=== PATIENT | male | born 1955 | race Caucasian/White ===

== ENCOUNTER 2019-11-09 18:12 | Emergency (ER) | payer MEDICARE, SELFPAY ==
[2019-11-09 18:22] VITALS: BP 146/91; PULSE 96; RESP 15; TEMP 36.7; O2SAT 98; BMI 25.1
[2019-11-09 18:24] VITALS: BP 146/91; PULSE 96; RESP 15; TEMP 36.7; O2SAT 98; BMI 25.1
--- NOTE | 2019-11-09 18:26 | HMH.EDGENADL ---
ED Disposition Clinical Impression: Laceration of left thumb Qualifiers: Encounter type: initial encounter Damage to nail status: without damage Foreign body presence: without foreign body Qualified Code(s): S61.012A - Laceration without foreign body of left thumb without damage to nail, initial encounter Disposition: Home, Self-Care Condition on Discharge: Good Instructions: DI for Laceration Repair Additional Instructions: Keflex as prescribed, begin tomorrow. Tylenol 3 as needed for pain. Additional instructions for HAND LACERATION: Clean the wound daily with soap and water. Avoid submerging the wound. No swimming.thin film of antibiotic ointment such as Neosporin, Polysporin, or triple antibiotic once a day. See your primary care physician or return to the [facility] in 10 days for suture removal. The [facility] is open1 PM to 9 PM 7 days a week. Return if any signs of infection including increasing pain, pus drainage, swelling, redness, red streaks, or fever. Additional instructions for CONTROLLED SUBSTANCES: You have been prescribed a medication that is a controlled substance. Controlled substances include pain medications known as opiates and sedative nerve medications known as benzodiazepines. Tramadol, fioricet, and gabapentin are also controlled substances. Some common opiates include: Codeine (such as Tylenol #3) Hydrocodone (Vicodin, Lortab, Lorcet, Venango) Oxycodone (Percocet, Percodan, Oxycodone, Oxy IR) Some common benzodiazepines include: Diazepam (Valium) Lorazepam (Ativan) Alprazolam (Xanax) Clonazepam (Klonopin) Oxazepam (Serax) All of these controlled substances are highly addictive and frequently abused. Misuse can and frequently does lead to addiction as well as overdose and . Medication should be stored in a locked cabinet or other secure storage unit. Do not store the medication in a motor vehicle. Short term supplies, 3 days or less, are prescribed because of the highly addictive nature of the medication. Any of the controlled substance medication NOT taken should be disposed of properly and NOT SAVED. The recommended method of disposing of unused medications is: Place the medicines in a sealable plastic bag. If the medicine is a solid, crush it or add water to dissolve it. Add something undesirable (cat litter, coffee grounds, etc.) Dispose of sealed bag in household trash Do not flush or pour unused medicines down a sink or drain. Controlled substances should not be shared, given away or sold. Because of the addictive nature and frequent abuse, these medications are sometimes stolen. These medications should be kept in a safe place where they cannot be stolen. Do not keep them in your car or purse. Lost or stolen prescriptions for controlled substances WILL NOT BE REFILLED in this emergency department, regardless of whether a police report was filed. Prescriptions: cephALEXin [Keflex 500mg Cap] 500 mg PO QID #20 cap Transmission Status: Pending to [facility] Referrals: Duncan Dubon [Primary Care Provider] - - Critical Care Critical Care Time: No Attestation: On , the high probability of a clinically significant, sudden or life threatening deterioration of the following system(s) required my full and direct attention, intervention and personal management. The time I documented below is in addition to time spent performing reported procedures but includes the following listed in this critical care notation. Medical Decision Making - Allan Inquiry Pt receiving controlled substance: Yes Allan was queried for this patient: Yes Reference #:: [id number] Risks and benefits of using a controlled substance: were discussed with pt by me Comment: 0 rxs. Vital Signs: 11/09/19 18:22 11/09/19 18:24 Temperature 98.1 F 98.1 F Temperature Source Oral Oral Pulse Rate [Right Radial] 96 H 96 H Respiratory Rate 15 15 Blood Pressur
--- NOTE | 2019-11-09 18:27 | XR_ITS ---
PROCEDURE: XR FINGER LT MIN 2V CLINICAL INDICATION: cut with saw Posttraumatic pain COMPARISON: No exams were available for comparison FINDINGS: No fracture or dislocation. No lytic or blastic change. There is normal mineralization. The joint spaces are well-preserved. No significant degenerative/arthritic changes. No erosive changes evident. Other findings:Soft tissue laceration is present along the plantar surface of the distal aspect of the thumb. No fracture or radiopaque foreign body IMPRESSION: Soft tissue laceration otherwise negative Dictated by: Juanjo George MD 11/09/2019 20:11 Juanjo George MD in [place] 11/09/2019 20:11
--- NOTE | 2019-11-09 18:36 | PC.NURSE ---
PT GONE TO XRAY
[2019-11-09 19:00] VITALS: BP 140/70; PULSE 80; RESP 18; O2SAT 98
--- NOTE | 2019-11-09 19:07 | PC.NURSE ---
received report from day nurse
[2019-11-09 19:20] VITALS: BP 141/73; PULSE 77; RESP 15; TEMP 36.5; O2SAT 98
== END 2019-11-09 19:28 | disposition home or self-care (01) ==
PROVIDERS: Emergency Provider Emergency Medicine; PCP Family Medicine
DX: S61.012A Laceration without foreign body of left thumb without damage to nail, initial encounter (principal); W31.2XXA Contact with powered woodworking and forming machines, initial encounter; Y92.018 Other place in single-family (private) house as the place of occurrence of the external cause; Z23 Encounter for immunization; K21.9 Gastro-esophageal reflux disease without esophagitis; I25.10 Atherosclerotic heart disease of native coronary artery without angina pectoris; I10 Essential (primary) hypertension; E78.5 Hyperlipidemia, unspecified; E03.9 Hypothyroidism, unspecified; Z95.5 Presence of coronary angioplasty implant and graft
CPT/HCPCS: 12002; 73140; 90471; 90714; 96372; 99283

== ENCOUNTER → 2019-11-17 14:59 | Outpatient (CLI) | payer MEDICARE, SELFPAY ==
--- NOTE | 2019-11-17 15:04 | XR_ITS ---
PROCEDURE: XR CHEST 2V CLINICAL HISTORY: CHEST TIGHTNESS,WHEEZING COMPARISON: CR CXR CHEST(2 VIEWS-NOT PORTABLE) from 11/21/2013 FINDINGS: The cardiomediastinal silhouette and pulmonary vascularity are within normal limits. No lobar consolidation or collapse. There is some mild coarsening of the bronchovascular markings. Coronary artery stent is present. No acute bony abnormalities. IMPRESSION: Chronic changes, no acute finding Dictated by: Juanjo George MD 11/17/2019 15:24 Juanjo George MD in [place] 11/17/2019 15:24
== END ==
PROVIDERS: PCP Family Medicine; Visit Provider Family Medicine
DX: R06.89 Other abnormalities of breathing (principal); R06.2 Wheezing
CPT/HCPCS: 71046

== ENCOUNTER 2019-11-20 18:37 | Emergency (ER) | payer MEDICARE, SELFPAY ==
[2019-11-20 18:59] VITALS: BP 142/77; PULSE 74; RESP 17; TEMP 36.8; O2SAT 98; BMI 25.1
[2019-11-20 19:00] VITALS: BP 142/77; PULSE 74; RESP 17; TEMP 36.8; O2SAT 98
== END 2019-11-20 19:02 | disposition home or self-care (01) ==
LOC: UTC 18:44
PROVIDERS: Emergency Provider Nurse Practitioner; PCP Family Medicine
DX: S61.012D Laceration without foreign body of left thumb without damage to nail, subsequent encounter (principal)

== ENCOUNTER 2021-01-26 13:00 | Outpatient (RCR) | payer MEDICARE, SELFPAY | END 2021-01-26 13:05 | disposition home or self-care (01) | LOC: PT 13:00 | PROVIDERS: PCP Family Medicine; Visit Provider Family Medicine | DX: R26.89 Other abnormalities of gait and mobility (principal); M25.552 Pain in left hip | CPT/HCPCS: 97110; 97112; 97163; 97164; 97530 ==

== ENCOUNTER → 2021-03-01 17:20 | Outpatient (CLI) | payer MEDICARE, SELFPAY | PROVIDERS: PCP Family Medicine; Visit Provider Nurse Practitioner | DX: Z20.822 Contact with and (suspected) exposure to COVID-19 (principal) | CPT/HCPCS: C9803; U0003; U0005 ==

== ENCOUNTER → 2021-03-03 16:40 | Outpatient (CLI) | payer MEDICARE, SELFPAY | PROVIDERS: Visit Provider Nurse Practitioner | DX: Z20.822 Contact with and (suspected) exposure to COVID-19 (principal) | CPT/HCPCS: C9803; U0003; U0005 ==

== ENCOUNTER 2021-07-09 10:19 | Emergency (ER) | payer MEDICARE, SELFPAY ==
[2021-07-09 10:35] VITALS: BP 121/71; PULSE 81; RESP 18; TEMP 37; O2SAT 97; BMI 25.1
[2021-07-09 11:04] VITALS: BP 121/71; PULSE 81; RESP 18; TEMP 37; O2SAT 97
--- NOTE | 2021-07-09 11:07 | HMH.EDUTC ---
[facility] [place] Clinical Impression: Upper respiratory infection Qualifiers: URI type: unspecified viral URI Qualified Code(s): J06.9 - Acute upper respiratory infection, unspecified Disposition: Home, Self-Care Condition on Discharge: Good Instructions: DI for Viral Upper Respiratory Infection -- Adult Additional Instructions: Rest, fluids, return if not improving Prescriptions: Guaifenesin/Dextromethorphan [Mucinex Dm ER 1,200-60 mg Tab] 1 tab PO BID 10 Days #20 tab Transmission Status: Pending to [facility] predniSONE [Prednisone 20mg Tab] 20 mg PO BID 5 Days #10 tab Transmission Status: Pending to [facility] Referrals: Canelo Madrigal [Primary Care Provider] - Time of Disposition: 11:25 Medical Decision Making - Allan Inquiry Pt receiving controlled substance: No Vital Signs: 07/09/21 10:35 07/09/21 11:04 Temperature 98.6 F 98.6 F Temperature Source Oral Pulse Rate 81 Pulse Rate [Right Brachial] 81 Respiratory Rate 18 18 Blood Pressure 121/71 Blood Pressure [Right Arm] 121/71 Blood Pressure Mean [Right Arm] 87 Blood Pressure Source [Right Arm] Automatic Cuff Blood Pressure Position [Right Arm] Sitting 02 Sat by Pulse Oximetry 97 Oxygen Delivery Method Room Air - Lab Data Lab results reviewed: Yes: I reviewed the patient's lab results. Lab Results 07/09/21 10:40: Group A Strep Rapid Negative Orders (Tests/Meds): ORDERS Category Date Time Status Strep Screen Confirmation Stat Micro 07/09/21 10:40 Received [facility] [place] HPI - General Stated complaint: congestion, sore throat Time Seen by Provider: 07/09/21 11:07 Mode of Arrival: Ambulatory Source of Information: Patient Limitations: No Limitations Description of Symptoms (Recalled from Triage Doc. by RN): PATIENT C/O CHEST CONGESTION, COUGH, AND SORE THROAT X 2 DAYS. RECENTLY EXPOSED TO STREP AND A COLD HEENT Symptoms (Recalled from RN notes): Yes Resp Symptoms (Recalled from RN notes): Yes Skin Symptoms (Recalled from RN notes): No MS Symptoms (Recalled from RN notes): No Functional Status (Recalled from RN notes): WNL - History of Present Illness Provider Complaint: Chest congestion, sore throat, nasal congestion X 2-3 days. Denies ear pain. No rash. No vomiting or diarrhea. Has been exposed to strep. Onset (ago): day(s) (3) Relieving factors: none Exacerbating factors: none Associated symptoms: denies other symptoms Treatments prior to arrival: none - Related Data Home Medications Medication Instructions Recorded Confirmed aspirin 81 mg chewable tablet 81 mg PO DAILY 10/16/19 10/16/19 azelastine 137 mcg (0.1 %) nasal 1 spray INTRANASAL BID 10/16/19 10/16/19 spray aerosol canagliflozin 300 mg tablet 300 mg PO DAILY 10/16/19 10/16/19 carvedilol 12.5 mg tablet 12.5 mg PO BID 10/16/19 10/16/19 clopidogrel 75 mg tablet 75 mg PO DAILY 10/16/19 10/16/19 fluticasone propionate 50 1 spray INTRANASAL DAILY 10/16/19 10/16/19 mcg/actuation nasal spray,suspension insulin glargine 100 unit/mL 50 unit SQ QPM 10/16/19 10/16/19 subcutaneous solution insulin lispro 100 unit/mL 1 sliding scale dose SQ 10/16/19 10/16/19 subcutaneous solution USEASDIRECTD levothyroxine 112 mcg capsule 112 mcg PO DAILY 10/16/19 10/16/19 metformin 1,000 mg tablet 1,000 mg PO BID 10/16/19 10/16/19 nitroglycerin 2.5 mg 2.5 mg PO BID 10/16/19 10/16/19 capsule,extended release omeprazole 20 mg capsule,delayed 20 mg PO DAILY 10/16/19 10/16/19 release rosuvastatin 5 mg tablet 5 mg PO DAILY 10/16/19 10/16/19 sacubitril 24 mg-valsartan 26 mg 1 tab PO BID 10/16/19 10/16/19 tablet Previous Rx's Medication Instructions Recorded albuterol sulfate 90 mcg/actuation 2 puff INHALATION Q6H PRN 30 Days 10/16/19 aerosol inhaler #6.7 g cephALEXin [Keflex 500mg Cap] 500 mg PO QID #20 cap 11/09/19 Guaifenesin/Dextromethorphan 1 tab PO BID 10 Days #20 tab 07/09/21 [Mucinex Dm ER 1,200-60 mg Tab] predniSONE [Predn
[2021-07-09 11:12] LABS: Strep Scrn Group A (Rapid) Negative (Negative)
== END 2021-07-09 11:30 | disposition home or self-care (01) ==
PROVIDERS: Emergency Provider Physician Assistant; PCP Family Medicine
DX: J06.9 Acute upper respiratory infection, unspecified (principal); J02.9 Acute pharyngitis, unspecified
CPT/HCPCS: 87430; 99212; G0463

== ENCOUNTER 2021-10-05 05:58 | Emergency (ER) | payer MEDICARE, SELFPAY ==
[2021-10-05 06:00] VITALS: BP 130/84; PULSE 87; RESP 21; TEMP 36.9; O2SAT 98; BMI 23.9
--- NOTE | 2021-10-05 06:05 | ECG_ITS ---
APPROVED REPORT Exam: Resting ECG HR:92 bpm ECG Measurements Heart Rate 92 AXES OR 195 P 66 QRSd 156 QRS 126 QT 402 T 18 QTc 452 Conclusion SINUS RHYTHM RIGHT AXIS DEVIATION [QRS AXIS > 100] INTRAVENTRICULAR CONDUCTION DELAY [130+ ms QRS DURATION] ABNORMAL ECG UNCONFIRMED REPORT Electronically signed by : Cecil Fernandez MD 10/08/2021 08:12:49
[2021-10-05 06:30] VITALS: BP 124/80; PULSE 85; RESP 20; O2SAT 98
[2021-10-05 07:00] VITALS: BP 125/85; PULSE 81; RESP 20; O2SAT 96
[2021-10-05 08:00] VITALS: BP 135/81; PULSE 84; RESP 21; O2SAT 96
[2021-10-05 09:34] VITALS: BP 125/79; PULSE 79; O2SAT 97
--- NOTE | 2021-10-05 09:46 | XR_ITS ---
PROCEDURE INFORMATION: Exam: XR Chest Exam date and time: 10/05/2021 6:09 AM Age: 66 years old Clinical indication: Shortness of breath; Prior surgery; Surgery type: Heart cath, stents; Patient HX: SOA, denies chest pain TECHNIQUE: Imaging protocol: Radiologic exam of the chest. Views: 2 views. COMPARISON: CR (CHEST, CXR AP LANDSCAPE) 08/23/2021 11:03 PM FINDINGS: Lungs: Scattered reticular markings are increased throughout both lungs. No focal consolidation. Pleural spaces: Unremarkable. No pleural effusion. No pneumothorax. Heart/Mediastinum: Stable cardiac size. Diaphragm: There is nonspecific elevation of the right hemidiaphragm. Bones/joints: Degenerative changes of the spine. IMPRESSION: Scattered reticular markings are increased bilaterally which may reflect pulmonary edema or viral process.
[2021-10-05 10:29] LABS: Coronavirus 19, PCR Not Detected (NotDetected); Influenza A, PCR Not Detected (NotDetected); Influenza B, PCR Not Detected (NotDetected)
[2021-10-05 10:30] VITALS: BP 125/79; PULSE 79; RESP 20; TEMP 36.9; O2SAT 97
--- NOTE | 2021-10-05 10:31 | HMH.EDGENADL ---
Discharge Plan Prescriptions Prescriptions: No Action levothyroxine 112 mcg capsule 112 mcg PO DAILY omeprazole 20 mg capsule,delayed release(DR/EC) 20 mg PO DAILY Entresto 24-26 mg tablet 1 tab PO BID carvedilol [Coreg] 12.5 mg tablet 12.5 mg PO BID Rx Instructions: must administer with a meal/food Invokana 300 mg tablet 300 mg PO DAILY metformin 1,000 mg tablet 1,000 mg PO BID Lantus U-100 Insulin 100 unit/mL solution 50 unit SQ QPM rosuvastatin 5 mg tablet 5 mg PO DAILY aspirin 81 mg tablet,chewable 81 mg PO DAILY insulin lispro [Humalog U-100 Insulin] 100 unit/mL solution 1 sliding scale dose SQ USEASDIRECTD clopidogrel [Plavix] 75 mg tablet 75 mg PO DAILY nitroglycerin 2.5 mg capsule, extended release 2.5 mg PO BID Rx Instructions: allow nitrate-free interval of approx. 10-12 hrs per 24-hour period fluticasone propionate [Flonase Allergy Relief] 50 mcg/actuation spray,suspension 1 spray INTRANASAL DAILY Rx Instructions: administer into each nostril azelastine 137 mcg (0.1 %) aerosol,spray 1 spray INTRANASAL BID Rx Instructions: administer into each nostril albuterol sulfate 90 mcg/actuation HFA aerosol inhaler 2 puff inhalation Q6H PRN (Reason: SOB, wheezing) 30 Days Qty: 6.7 0RF Rx Instructions: administer with spacer cephalexin 500 MG capsule 500 mg PO QID Qty: 20 0RF prednisone 20 MG tablet 20 mg PO BID 5 Days Qty: 10 0RF dextromethorphan-guaifenesin 1 EACH tablet extended release 12 hr 1 tab PO BID 10 Days Qty: 20 0RF Referrals Referrals: Canelo Madrigal [Primary Care Provider] - Enter time for follow up Discharge ED Provider: Jay Rinaldi General Adult HPI General Stated complaint: nose bleed Time Seen by Provider: 10/05/21 10:30 Related Data Home Medications Medication Instructions Recorded Confirmed aspirin 81 mg chewable tablet 81 mg PO DAILY 10/16/19 10/16/19 azelastine 137 mcg (0.1 %) nasal 1 spray intranasal BID 10/16/19 10/16/19 spray aerosol canagliflozin 300 mg tablet 300 mg PO DAILY 10/16/19 10/16/19 (Invokana) carvedilol 12.5 mg tablet (Coreg) 12.5 mg PO BID 10/16/19 10/16/19 clopidogrel 75 mg tablet (Plavix) 75 mg PO DAILY 10/16/19 10/16/19 fluticasone propionate 50 1 spray intranasal DAILY 10/16/19 10/16/19 mcg/actuation nasal spray,suspension (Flonase Allergy Relief) insulin glargine 100 unit/mL 50 unit SQ QPM 10/16/19 10/16/19 subcutaneous solution (Lantus U-100 Insulin) insulin lispro 100 unit/mL 1 sliding scale dose SQ 10/16/19 10/16/19 subcutaneous solution (Humalog USEASDIRECTD U-100 Insulin) levothyroxine 112 mcg capsule 112 mcg PO DAILY 10/16/19 10/16/19 metformin 1,000 mg tablet 1,000 mg PO BID 10/16/19 10/16/19 nitroglycerin 2.5 mg 2.5 mg PO BID 10/16/19 10/16/19 capsule,extended release omeprazole 20 mg capsule,delayed 20 mg PO DAILY 10/16/19 10/16/19 release rosuvastatin 5 mg tablet 5 mg PO DAILY 10/16/19 10/16/19 sacubitril 24 mg-valsartan 26 mg 1 tab PO BID 10/16/19 10/16/19 tablet (Entresto) Previous Rx's Medication Instructions Recorded albuterol sulfate 90 mcg/actuation 2 puff inhalation Q6H PRN SOB, 10/16/19 aerosol inhaler wheezing 30 days #6.7 grams cephalexin 500 mg capsule 500 mg PO QID #20 caps 11/09/19 dextromethorphan-guaifenesin ER 60 1 tab PO BID 10 days #20 tabs 07/09/21 mg-1,200 mg tab,extend release,12hr prednisone 20 mg tablet 20 mg PO BID 5 days #10 tabs 07/09/21 Allergies Allergy/AdvReac Type Severity Reaction Status Date / Time No Known Allergies Allergy Verified 11/09/19 18:29 PFSH PFSH Social History Smoking Status: Former smoker alcohol intake: former substance use type: denies use current occupational status: retired household members: spouse housing: house Medical Decision Making Vital Signs: 10/05/21 09:34 Pul
[2021-10-05 10:42] LABS: Procalcitonin 0.099 ng/mL (0.0-2.0)
[2021-10-05 10:44] LABS: Alanine Aminotransferase 39 U/L (12-78); Albumin Level 4.1 g/dl (3.5-5.0); Alkaline Phosphatase 68 U/L (38-126); Anion Gap 13.8 mEq/L (5-15); Aspartate Amino Transferase 44 U/L (17-59); Bilirubin,Direct 0.2 mg/dl (0.0-0.4); Bilirubin,Indirect 0.1 mg/dL (0.0-0.9); Bilirubin,Total 0.3 mg/dl (0.2-1.3); Bilirubin,Unconjugated 0.1 mg/dL (0.0-1.1); Blood Urea Nitrogen 32 mg/dl (9-20); C-Reactive Protein 3.9 mg/L (0-4); Calcium 9.8 mg/dl (8.4-10.2); Carbon Dioxide 27 mmol/L (22.0-30.0); Chloride 104 mmol/L (98-107); Estimated Glomerular Filt Rate 47 ml/min (>60); GFR (African American) 56 ML/MIN (>60); Glucose 220 mg/dl (74-100); NT Pro Brain Natriuretic Pep. 2240 pg/mL (0-125); Potassium 4.8 mmoL/L (3.5-5.1); Sodium 140 mmol/L (136-145); T4 (Thyroxine) 8.7 ug/dl (5.53-11.0); Thyroid Stimulating Hormone 3.73 uIU/mL (0.465-4.68); Total Protein,Serum 8.1 g/dl (6.3-8.2); Troponin I 0.02 ng/ml (0.00-0.034)
[2021-10-05 10:49] LABS: Hematocrit 36.2 % (42.0-52.0); Hemoglobin 12.3 g/dL (14.1-18.0); Red Blood Count 4.02 M/mm3 (4.60-6.20); White Blood Count 6.2 K/mm3 (4.8-10.8)
[2021-10-05 10:50] LABS: Basophils % 0.4 % (0.1-2.0); Eosinophils # 0.2 K/mm3 (0.0-0.4); Eosinophils % 3.8 % (0.1-12.0); Lymphocytes # 1.3 K/mm3 (0.7-4.5); Lymphocytes % 20.7 % (10-50); Mean Corpuscular HGB Conc 33.9 g/dL (31.8-35.4); Mean Corpuscular Hemoglobin 30.5 pg (27.0-31.2); Mean Platelet Volume 8.5 fl (7.4-10.4); Monocytes # 0.5 K/mm3 (0.1-1.0); Monocytes % 7.5 % (1.7-9.3); Neutrophils # 4.2 K/mm3 (1.8-7.8); Neutrophils % 67.7 % (37.0-80.0); Platelet Count 213 K/mm3 (142-424)
[2021-10-05 10:51] LABS: Erythrocyte Sedimentation Rate 82 mm/hr (0-20)
--- NOTE | 2021-10-05 12:50 | PC.NURSE ---
0825 - 600 ml of urine output 0847 - 600 ml of urine output
--- NOTE | 2021-10-07 07:47 | HMH.EDSOB ---
Discharge Plan Disposition Patient Disposition: Home, Self-Care Chief Complaint: Shortness of Breath/Dyspnea Prescriptions Prescriptions: No Action levothyroxine 112 mcg capsule 112 mcg PO DAILY omeprazole 20 mg capsule,delayed release(DR/EC) 20 mg PO DAILY Entresto 24-26 mg tablet 1 tab PO BID carvedilol [Coreg] 12.5 mg tablet 12.5 mg PO BID Rx Instructions: must administer with a meal/food Invokana 300 mg tablet 300 mg PO DAILY metformin 1,000 mg tablet 1,000 mg PO BID Lantus U-100 Insulin 100 unit/mL solution 50 unit SQ QPM rosuvastatin 5 mg tablet 5 mg PO DAILY aspirin 81 mg tablet,chewable 81 mg PO DAILY insulin lispro [Humalog U-100 Insulin] 100 unit/mL solution 1 sliding scale dose SQ USEASDIRECTD clopidogrel [Plavix] 75 mg tablet 75 mg PO DAILY nitroglycerin 2.5 mg capsule, extended release 2.5 mg PO BID Rx Instructions: allow nitrate-free interval of approx. 10-12 hrs per 24-hour period fluticasone propionate [Flonase Allergy Relief] 50 mcg/actuation spray,suspension 1 spray INTRANASAL DAILY Rx Instructions: administer into each nostril azelastine 137 mcg (0.1 %) aerosol,spray 1 spray INTRANASAL BID Rx Instructions: administer into each nostril albuterol sulfate 90 mcg/actuation HFA aerosol inhaler 2 puff inhalation Q6H PRN (Reason: SOB, wheezing) 30 Days Qty: 6.7 0RF Rx Instructions: administer with spacer Referrals Referrals: Canelo Madrigal [Primary Care Provider] - Enter time for follow up Clinical Impressions Clinical Impression: CHF (congestive heart failure) Instructions Patient Instructions: DI for Shortness of Breath, Heart Failure Discharge ED Provider: Jose Daugherty Resp/SOB HPI General Chief Complaint: Shortness of Breath/Dyspnea Stated Complaint: nose bleed Time Seen by Provider: 10/05/21 06:37 Mode of Arrival: Ambulatory Source of Information: Patient Limitations: No Limitations Description of Symptoms (Recalled from ER Triage Doc. by RN): Pt c/o SOA since last night (10/04). States he has a hx of CHF and sees Dr Snyder @ [facility] for cardiac needs. However, this am he felt he could not make the trip to [place] d/t his SOA. Pt denies fever or chills. Denies N/V/D. He does report mild cough, but reports no more than usual . He takes Lasix, Entresto, Coreg, Plavix, and ASA daily. He also reports frequent nosebleeds, though no active bleeding at this time. Took nitro SL at 0530 but no relief. History of Present Illness hx of sob with hx of chf - no chest pain MD Complaint: shortness of breath Onset (ago): day(s) Severity: moderate Known history of: congestive heart failure Associated symptoms: orthopnea Treatment prior to arrival: oxygen and nitroglycerin Related Data Home oxygen amount: none Home Medications Medication Instructions Recorded Confirmed aspirin 81 mg chewable tablet 81 mg PO DAILY CAD 10/16/19 10/05/21 azelastine 137 mcg (0.1 %) nasal 1 spray intranasal BID . 10/16/19 10/05/21 spray aerosol canagliflozin 300 mg tablet 300 mg PO DAILY . 10/16/19 10/05/21 (Invokana) carvedilol 12.5 mg tablet (Coreg) 12.5 mg PO BID CAD 10/16/19 10/05/21 clopidogrel 75 mg tablet (Plavix) 75 mg PO DAILY CAD 10/16/19 10/05/21 fluticasone propionate 50 1 spray intranasal DAILY COPD 10/16/19 10/05/21 mcg/actuation nasal spray,suspension (Flonase Allergy Relief) insulin glargine 100 unit/mL 50 unit SQ QPM dm 10/16/19 10/05/21 subcutaneous solution (Lantus U-100 Insulin) insulin lispro 100 unit/mL 1 sliding scale dose SQ 10/16/19 10/05/21 subcutaneous solution (Humalog USEASDIRECTD dm U-100 Insulin) levothyroxine 112 mcg capsule 112 mcg PO DAILY thyroid 10/16/19 10/05/21 metformin 1,000 mg tablet 1,000 mg PO BID diabetes 10/16/19 10/05/21 nitroglycerin 2.5 mg 2.5 mg PO BID Chest pain 10/16/19 10/05/21 capsule,exte
== END 2021-10-05 10:30 | disposition home or self-care (01) ==
PROVIDERS: Emergency Medicine; Emergency Provider Emergency Medicine; PCP Family Medicine
DX: I50.9 Heart failure, unspecified (principal)
CPT/HCPCS: 71046; 80048; 80076; 83880; 84145; 84436; 84443; 84484; 85025; 85651; 86140; 93005; 99283; C9803; U0003; U0005

== ENCOUNTER 2022-06-14 10:10 | Outpatient (RCR) | payer MEDICARE, SELFPAY | END 2022-08-03 12:00 | disposition home or self-care (01) | LOC: PT 10:10 | DX: I25.10 Atherosclerotic heart disease of native coronary artery without angina pectoris (principal); Z95.0 Presence of cardiac pacemaker | CPT/HCPCS: 93798 ==

== ENCOUNTER 2023-04-20 12:32 | Emergency (ER) | payer MEDICARE, SELFPAY ==
[2023-04-20 13:00] VITALS: BP 131/72; PULSE 70; RESP 18; TEMP 36.8; O2SAT 96; BMI 27.1
--- NOTE | 2023-04-20 13:11 | ED_ITS ---
Discharge Plan Disposition Patient Disposition: Home, Self-Care Condition: Good Prescriptions Prescriptions: New amoxicillin 875 mg tablet 875 mg PO Q12H Qty: 20 0RF guaifenesin [Mucinex] 600 mg tablet extended release 12hr 600 - 1,200 mg PO BIDP PRN (Reason: Congestion) Qty: 30 0RF benzonatate 100 mg capsule 100 mg PO TIDP PRN (Reason: Cough) Qty: 30 0RF No Action levothyroxine 112 mcg capsule 112 mcg PO DAILY omeprazole 20 mg capsule,delayed release(DR/EC) 20 mg PO DAILY Entresto 24-26 mg tablet 1 tab PO BID carvedilol [Coreg] 12.5 mg tablet 12.5 mg PO BID Rx Instructions: must administer with a meal/food Invokana 300 mg tablet 300 mg PO DAILY metformin 1,000 mg tablet 1,000 mg PO BID Lantus U-100 Insulin 100 unit/mL solution 50 unit SQ QPM rosuvastatin 5 mg tablet 5 mg PO DAILY aspirin 81 mg tablet,chewable 81 mg PO DAILY insulin lispro [Humalog U-100 Insulin] 100 unit/mL solution 1 sliding scale dose SQ USEASDIRECTD clopidogrel [Plavix] 75 mg tablet 75 mg PO DAILY nitroglycerin 2.5 mg capsule, extended release 2.5 mg PO BID Rx Instructions: allow nitrate-free interval of approx. 10-12 hrs per 24-hour period fluticasone propionate [Flonase Allergy Relief] 50 mcg/actuation spray,suspension 1 spray INTRANASAL DAILY Rx Instructions: administer into each nostril azelastine 137 mcg (0.1 %) aerosol,spray 1 spray INTRANASAL BID Rx Instructions: administer into each nostril albuterol sulfate 90 mcg/actuation HFA aerosol inhaler 2 puff inhalation Q6H PRN (Reason: SOB, wheezing) 30 Days Qty: 6.7 0RF Rx Instructions: administer with spacer Referrals Follow up/Referrals: Canelo Madrigal MD [Primary Care Provider] - See instructions Activity Restrictions/Add. Instructions Additional Instructions/Restrictions: Drink plenty of fluids. Take tylenol or ibuprofen for pain or fever. Take the medications as directed. Follow up with your regular doctor. GO TO THE ER FOR ANY WORSENING SYMPTOMS Clinical Impressions Clinical Impression: Sinusitis Instructions Patient Instructions: Sinusitis, DI for Sinusitis Discharge ED Provider: Maximo Mitchell [facility] [place] HPI General Stated complaint: stuffy head, drainage Time Seen by Provider: 04/20/23 13:11 History of Present Illness Provider Complaint: He states that for the past 1 week he has had sinus congestion, cough and ear pain. Related Data Home Medications Medication Instructions Recorded Confirmed aspirin 81 mg chewable tablet 81 mg PO DAILY CAD 10/16/19 10/05/21 azelastine 137 mcg (0.1 %) nasal 1 spray intranasal BID . 10/16/19 10/05/21 spray aerosol canagliflozin 300 mg tablet 300 mg PO DAILY . 10/16/19 10/05/21 (Invokana) carvedilol 12.5 mg tablet (Coreg) 12.5 mg PO BID CAD 10/16/19 10/05/21 clopidogrel 75 mg tablet (Plavix) 75 mg PO DAILY CAD 10/16/19 10/05/21 fluticasone propionate 50 1 spray intranasal DAILY COPD 10/16/19 10/05/21 mcg/actuation nasal spray,suspension (Flonase Allergy Relief) insulin glargine 100 unit/mL 50 unit SQ QPM dm 10/16/19 10/05/21 subcutaneous solution (Lantus U-100 Insulin) insulin lispro 100 unit/mL 1 sliding scale dose SQ 10/16/19 10/05/21 subcutaneous solution (Humalog USEASDIRECTD dm U-100 Insulin) levothyroxine 112 mcg capsule 112 mcg PO DAILY thyroid 10/16/19 10/05/21 metformin 1,000 mg tablet 1,000 mg PO BID diabetes 10/16/19 10/05/21 nitroglycerin 2.5 mg 2.5 mg PO BID Chest pain 10/16/19 10/05/21 capsule,extended release omeprazole 20 mg capsule,delayed 20 mg PO DAILY GERD 10/16/19 10/05/21 release rosuvastatin 5 mg tablet 5 mg PO DAILY Cholesterol 10/16/19 10/05/21 sacubitril 24 mg-valsartan 26 mg 1 tab PO BID CAD 10/16/19 10/05/21 tablet (Entresto) Previous Rx's Medication Instructions Recorded albuterol sulfate 90 mcg/actuation 2 puff inhalation Q6H PRN SOB, 10/16/19 aerosol inhaler wheezing 30 days #6.7 grams amoxicillin 875 mg tablet 875 mg PO Q12H #20 tabs 04/20/23 benzonatate 100 mg capsule 100 mg PO TIDP PRN Cough #30 caps 04/20/23 guaifenesin 600 mg tablet, 600 - 1,200 mg (1 - 2 x 600 mg) PO 04/20/23 extended release 12 hr (Mucinex) BIDP PRN Congestion #30 tabs Allergies Allergy/AdvReac Type Severity Reaction Status Date / Time No Known Allergies Allergy Verified 04/20/23 13:14 [facility] Disclaimer: The information contained in this section may have been updated after the patient was seen, as this information can be updated by other users. Medical History (Updated 04/20/23 @ 13:47 by Maximo Mitchell APRN) Sinus headache Diabetes mellitus, type 2 Edema Hyperlipidemia History of chest pain Congestive heart failure Surgical History History of tonsillectomy Social History Smoking Status: Former smoker alcohol intake: former substance use type: denies use current occupational status: retired Travel in the last 8 weeks: None household members: spouse housing: house marital status: current occupational exposures/hazards: No do you feel safe at home: Yes victim of physical abuse: No victim of emotional abuse: No victim of sexual abuse: No would you like helpful sources: No ROS Obtained: Yes All systems reviewed & no additional complaints except as documented Constitutional Constitutional: Reports poor appetite Eyes Eyes: Reports system reviewed and no additional complaints, except as documented ENT Ears, Nose, Mouth, and Throat: Reports as per HPI Cardiovascular Cardiovascular: Reports system reviewed and no additional complaints, except as documented and Denies chest pain Respiratory Respiratory: Denies shortness of breath, Reports chest congestion, Reports cough, Denies stridor and Denies wheezing Gastrointestinal Gastrointestingal: Reports system reviewed and no additional complaints, except as documented; Denies abdominal pain, diarrhea or vomiting Musculoskeletal Musculoskeletal: Reports system reviewed and no additional complaints, except as documented and Denies arthralgias Integumentary/Breasts Skin/Breast: Reports system reviewed and no additional complaints, except as documented and Denies rash Neurologic Neurologic: Denies paresthesias Allergic/Immunologic Allergic/Immunologic: Denies wheezing Physical Exam General General appearance: alert and in no apparent distress Eye Eye exam: Present normal appearance, PERRL and EOMI ENT ENT exam: Present mucous membranes moist and normal external ear exam Expanded ENT Exam External ear exam: Present normal external inspection TM/Canal exam: Bilateral TM: erythema and bulging Nose exam: Absent sinus tenderness Nasal speculum exam: Bilateral: normal Mouth exam: Present normal external inspection; Absent drooling Teeth exam: Present normal inspection Throat exam: Present tonsillar erythema and tonsillomegaly Neck Neck exam: Present normal inspection, full ROM and trachea midline; Absent tenderness, lymphadenopathy or thyromegaly Chest Chest inspection: Present normal inspection and symmetric chest wall rise; Absent tenderness or rash Respiratory Respiratory exam: Present normal lung sounds bilaterally; Absent respiratory distress, wheezes, stridor or accessory muscle use Cardiovascular Cardiovascular exam: Present regular rate, normal rhythm and normal heart sounds Abdominal Exam Abdominal exam: Present soft; Absent distention, tenderness, guarding, rebound or rigidity Extremities Exam Extremities exam: Present normal inspection, full ROM and normal capillary refill; Absent tenderness or calf tenderness Back Exam Back exam: Present normal inspection and full ROM; Absent tenderness Neurological Exam Neurological exam: Present alert and oriented X3 Psychiatric Psychiatric exam: Present normal affect and normal mood Skin Skin exam: Present warm, dry, intact and normal color Lymphatic Lymphatic Findings: no adenopathy Medical Decision Making Medical Records Medical records reviewed: No I reviewed the patient's medical records. Allan Inquiry Pt receiving controlled substance: No Lab Data Lab results reviewed: Yes I reviewed the patient's lab results.
[2023-04-20 13:53] VITALS: BP 131/72; PULSE 70; RESP 18; TEMP 36.8; O2SAT 96
== END 2023-04-20 13:53 | disposition home or self-care (01) ==
PROVIDERS: Emergency Provider Nurse Practitioner Family; PCP Family Medicine
DX: J01.90 Acute sinusitis, unspecified (principal); R05.9 Cough, unspecified; R09.81 Nasal congestion; H92.03 Otalgia, bilateral; E11.9 Type 2 diabetes mellitus without complications; E78.5 Hyperlipidemia, unspecified; E03.9 Hypothyroidism, unspecified; I50.9 Heart failure, unspecified; K21.9 Gastro-esophageal reflux disease without esophagitis; Z79.4 Long term (current) use of insulin; Z79.84 Long term (current) use of oral hypoglycemic drugs
CPT/HCPCS: 99212; 99214; G0463

== ENCOUNTER 2023-04-28 10:41 | Emergency (ER) | payer MEDICARE, SELFPAY ==
[2023-04-28 11:10] VITALS: BP 127/84; PULSE 79; RESP 20; TEMP 37; O2SAT 98; BMI 28.5
--- NOTE | 2023-04-28 11:38 | EXP.UTC ---
Discharge Plan Disposition Patient Disposition: Home, Self-Care Condition: Good Prescriptions Prescriptions: New oseltamivir [Tamiflu] 75 mg capsule 75 mg PO BID 5 Days Qty: 10 0RF No Action levothyroxine 112 mcg capsule 112 mcg PO DAILY omeprazole 20 mg capsule,delayed release(DR/EC) 20 mg PO DAILY Entresto 24-26 mg tablet 1 tab PO BID carvedilol [Coreg] 12.5 mg tablet 12.5 mg PO BID Rx Instructions: must administer with a meal/food Invokana 300 mg tablet 300 mg PO DAILY metformin 1,000 mg tablet 1,000 mg PO BID Lantus U-100 Insulin 100 unit/mL solution 50 unit SQ QPM rosuvastatin 5 mg tablet 5 mg PO DAILY aspirin 81 mg tablet,chewable 81 mg PO DAILY insulin lispro [Humalog U-100 Insulin] 100 unit/mL solution 1 sliding scale dose SQ USEASDIRECTD clopidogrel [Plavix] 75 mg tablet 75 mg PO DAILY nitroglycerin 2.5 mg capsule, extended release 2.5 mg PO BID Rx Instructions: allow nitrate-free interval of approx. 10-12 hrs per 24-hour period fluticasone propionate [Flonase Allergy Relief] 50 mcg/actuation spray,suspension 1 spray INTRANASAL DAILY Rx Instructions: administer into each nostril azelastine 137 mcg (0.1 %) aerosol,spray 1 spray INTRANASAL BID Rx Instructions: administer into each nostril albuterol sulfate 90 mcg/actuation HFA aerosol inhaler 2 puff inhalation Q6H PRN (Reason: SOB, wheezing) 30 Days Qty: 6.7 0RF Rx Instructions: administer with spacer amoxicillin 875 mg tablet 875 mg PO Q12H Qty: 20 0RF guaifenesin [Mucinex] 600 mg tablet extended release 12hr 600 - 1,200 mg PO BIDP PRN (Reason: Congestion) Qty: 30 0RF benzonatate 100 mg capsule 100 mg PO TIDP PRN (Reason: Cough) Qty: 30 0RF Referrals Follow up/Referrals: Canelo Madrigal MD [Primary Care Provider] - See instructions Activity Restrictions/Add. Instructions Additional Instructions/Restrictions: No sign of a bacterial infection. Likely viral. Viruses can take 7-14 days to run their course. Nasal saline and bulb syringe or nose Nanda to remove nasal drainage to help with nasal congestion. Hard to eat, drink, sleep with nasal congestion so important to keep this cleaned out. Monitor temp. Tylenol or Motrin as needed for pain or fever Encourage fluids, water, Gatorade, Powerade, Pedialyte if /toddler/child Warm salt water gargles Warm fluids Sore throat lozenges Sleep elevated Humidifier/vaporizer Follow-up immediately for new or worsening symptoms or no noticeable improvement over the next 48-72 hours. Clinical Impressions Clinical Impression: Influenza A Instructions Patient Instructions: DI for Influenza -- Adult Discharge ED Provider: Neri ([facility] [place] H[place] General Stated complaint: covid test Mode of Arrival: Ambulatory Source of Information: Patient Limitations: No Limitations Time Seen by Provider: 04/28/23 11:38 Description of Symptoms (Recalled from Triage Doc. by RN): PATIENT C/O COUGH AND DRAINAGE X 2 DAYS HEENT Symptoms (Recalled from RN notes): Yes Resp Symptoms (Recalled from RN notes): Yes Skin Symptoms (Recalled from RN notes): No MS Symptoms (Recalled from RN notes): No Functional Status (Recalled from RN notes): WNL History of Present Illness Provider Complaint: 68 yr old male presents for cough and congestion for 2 days Related Data Home Medications Medication Instructions Recorded Confirmed aspirin 81 mg chewable tablet 81 mg PO DAILY CAD 10/16/19 10/05/21 azelastine 137 mcg (0.1 %) nasal 1 spray intranasal BID . 10/16/19 10/05/21 spray aerosol canagliflozin 300 mg tablet 300 mg PO DAILY . 10/16/19 10/05/21 (Invokana) carvedilol 12.5 mg tablet (Coreg) 12.5 mg PO BID CAD 10/16/19 10/05/21 clopidogrel 75 mg tablet (Plavix) 75 mg PO DAILY CAD 10/16/19 10/05/21 fluticasone propionate 50 1 spray intranasal DAILY COPD 10/16/19 10/05/21 mcg/actuation nasal spray,suspension (Flonase Allergy Relief) insulin glargine 100 unit/mL 50 unit SQ QPM dm 10/16/19 10/05/21 subcutaneous solution (Lantus U-100 Insulin) insulin lispro 100 unit/mL 1 sliding scale dose SQ 10/16/19 10/05/21 subcutaneous solution (Humalog USEASDIRECTD dm U-100 Insulin) levothyroxine 112 mcg capsule 112 mcg PO DAILY thyroid 10/16/19 10/05/21 metformin 1,000 mg tablet 1,000 mg PO BID diabetes 10/16/19 10/05/21 nitroglycerin 2.5 mg 2.5 mg PO BID Chest pain 10/16/19 10/05/21 capsule,extended release omeprazole 20 mg capsule,delayed 20 mg PO DAILY GERD 10/16/19 10/05/21 release rosuvastatin 5 mg tablet 5 mg PO DAILY Cholesterol 10/16/19 10/05/21 sacubitril 24 mg-valsartan 26 mg 1 tab PO BID CAD 10/16/19 10/05/21 tablet (Entresto) Previous Rx's Medication Instructions Recorded albuterol sulfate 90 mcg/actuation 2 puff inhalation Q6H PRN SOB, 10/16/19 aerosol inhaler wheezing 30 days #6.7 grams amoxicillin 875 mg tablet 875 mg PO Q12H #20 tabs 04/20/23 benzonatate 100 mg capsule 100 mg PO TIDP PRN Cough #30 caps 04/20/23 guaifenesin 600 mg tablet, 600 - 1,200 mg (1 - 2 x 600 mg) PO 04/20/23 extended release 12 hr (Mucinex) BIDP PRN Congestion #30 tabs oseltamivir 75 mg capsule (Tamiflu) 75 mg PO BID 5 days #10 caps 04/28/23 Allergies Allergy/AdvReac Type Severity Reaction Status Date / Time No Known Allergies Allergy Verified 04/20/23 13:14 Worker's Comp Is this a Worker's Comp case?: No [facility] Disclaimer: The information contained in this section may have been updated after the patient was seen, as this information can be updated by other users. Medical History , [employer]) Sinus headache Diabetes mellitus, type 2 Edema Hyperlipidemia History of chest pain Congestive heart failure Surgical History , [employer]) History of tonsillectomy Social History , [employer]) Smoking Status: Former smoker alcohol intake: former substance use type: denies use current occupational status: retired Travel in the last 8 weeks: None household members: spouse housing: house marital status: current occupational exposures/hazards: No do you feel safe at home: Yes victim of physical abuse: No victim of emotional abuse: No victim of sexual abuse: No would you like helpful sources: No ROS Obtained: Yes All systems reviewed & no additional complaints except as documented Constitutional Constitutional: Reports system reviewed and no additional complaints, except as documented and Reports as per HPI Eyes Eyes: Reports system reviewed and no additional complaints, except as documented ENT Ears, Nose, Mouth, and Throat: Reports system reviewed and no additional complaints, except as documented, Reports as per HPI, Reports nasal congestion, Reports nasal discharge and Reports sinus pressure Cardiovascular Cardiovascular: Reports system reviewed and no additional complaints, except as documented Respiratory Respiratory: Reports system reviewed and no additional complaints, except as documented, Reports as per HPI and Reports cough Musculoskeletal Musculoskeletal: Reports system reviewed and no additional complaints, except as documented Integumentary/Breasts Skin/Breast: Reports system reviewed and no additional complaints, except as documented Neurologic Neurologic: Reports system reviewed and no additional complaints, except as documented Endocrine Endocrine: Reports system reviewed and no additional complaints, except as documented Allergic/Immunologic Allergic/Immunologic: Reports system reviewed and no additional complaints, except as documented Physical Exam General General appearance: alert and in no apparent distress Head Head exam: atraumatic Eye Eye exam: Present normal appearance and PERRL ENT ENT exam: Present normal exam, normal oropharynx, mucous membranes moist and TM's normal bilaterally Respiratory Respiratory exam: Present normal lung sounds bilaterally Cardiovascular Cardiovascular exam: Present regular rate and normal rhythm Neurological Exam Neurological exam: Present alert and oriented X3 Skin Skin exam: Present warm and intact Medical Decision Making Medical Records Medical records reviewed: Yes I reviewed the patient's medical records. Allan Inquiry Pt receiving controlled substance: No Allan was queried for this patient: No Vital Signs: 04/28/23 11:10 Temperature 98.6 F Temperature Source Oral Pulse Rate [Left Brachial] 79 Respiratory Rate 20 Blood Pressure [Left Arm] 127/84 Blood Pressure Mean [Left Arm] 98 Blood Pressure Source [Left Arm] Automatic Cuff Blood Pressure Position [Left Arm] Sitting 02 Sat by Pulse Oximetry 98 Oxygen Delivery Method Room Air Lab Data Lab results reviewed: Yes I reviewed the patient's lab results. Orders (Tests/Meds): ORDERS Category Date Time Status Rapid PCR Covid and Flu A/B Stat Lab 04/28/23 11:19 Ordered
[2023-04-28 11:51] LABS: Coronavirus 19, PCR Not Detected (NotDetected); Influenza B, PCR Not Detected (NotDetected)
[2023-04-28 12:17] LABS: Influenza A, PCR Detected (NotDetected)
[2023-04-28 12:21] VITALS: BP 127/84; PULSE 79; RESP 20; TEMP 37; O2SAT 98
== END 2023-04-28 12:27 | disposition home or self-care (01) ==
PROVIDERS: Emergency Provider Nurse Practitioner Family; PCP Family Medicine
DX: J10.1 Influenza due to other identified influenza virus with other respiratory manifestations (principal); R05.9 Cough, unspecified; R09.81 Nasal congestion; E11.9 Type 2 diabetes mellitus without complications; E78.5 Hyperlipidemia, unspecified; I50.9 Heart failure, unspecified; Z87.891 Personal history of nicotine dependence
CPT/HCPCS: 87636; 99212; 99214; G0463

== ENCOUNTER 2023-09-06 10:36 | Emergency (ER) | payer MEDICARE, SELFPAY ==
[2023-09-06 10:57] VITALS: BP 148/74; PULSE 77; RESP 18; TEMP 37; O2SAT 96; BMI 25.8
--- NOTE | 2023-09-06 11:04 | ED_ITS ---
Discharge Plan Disposition Patient Disposition: Home, Self-Care Condition: Good Prescriptions Prescriptions: New amoxicillin-pot clavulanate 875-125 mg Tablet 1 tab PO Q12H 7 Days Qty: 14 0RF guaifenesin [Mucinex] 600 mg tablet extended release 12hr 600 mg PO BID PRN (Reason: cough) Qty: 20 0RF No Action levothyroxine 112 mcg capsule 112 mcg PO DAILY omeprazole 20 mg capsule,delayed release(DR/EC) 20 mg PO DAILY Entresto 24-26 mg tablet 1 tab PO BID carvedilol [Coreg] 12.5 mg tablet 12.5 mg PO BID Rx Instructions: must administer with a meal/food Invokana 300 mg tablet 300 mg PO DAILY metformin 1,000 mg tablet 1,000 mg PO BID Lantus U-100 Insulin 100 unit/mL solution 50 unit SQ QPM rosuvastatin 5 mg tablet 5 mg PO DAILY aspirin 81 mg tablet,chewable 81 mg PO DAILY insulin lispro [Humalog U-100 Insulin] 100 unit/mL solution 1 sliding scale dose SQ USEASDIRECTD clopidogrel [Plavix] 75 mg tablet 75 mg PO DAILY nitroglycerin 2.5 mg capsule, extended release 2.5 mg PO BID Rx Instructions: allow nitrate-free interval of approx. 10-12 hrs per 24-hour period fluticasone propionate [Flonase Allergy Relief] 50 mcg/actuation spray,suspension 1 spray INTRANASAL DAILY Rx Instructions: administer into each nostril azelastine 137 mcg (0.1 %) aerosol,spray 1 spray INTRANASAL BID Rx Instructions: administer into each nostril albuterol sulfate 90 mcg/actuation HFA aerosol inhaler 2 puff inhalation Q6H PRN (Reason: SOB, wheezing) 30 Days Qty: 6.7 0RF Rx Instructions: administer with spacer oseltamivir [Tamiflu] 75 mg capsule 75 mg PO BID 5 Days Qty: 10 0RF amoxicillin 875 mg tablet 875 mg PO Q12H Qty: 20 0RF guaifenesin [Mucinex] 600 mg tablet extended release 12hr 600 - 1,200 mg PO BIDP PRN (Reason: Congestion) Qty: 30 0RF benzonatate 100 mg capsule 100 mg PO TIDP PRN (Reason: Cough) Qty: 30 0RF Referrals Follow up/Referrals: Canelo Madrigal MD [Primary Care Provider] - See instructions Activity Restrictions/Add. Instructions Additional Instructions/Restrictions: *Monitor Temp, Over the counter Motrin or Tylenol as directed/as needed Tylenol every 4 hours and Motrin every 6 hours (as long as your family doctor has told you that you can take it) for fever or pain. and straight to ER if unable to lower temp less than 101.0 after medication given *Warm salt water gargles may help to soothe the throat *Throat Lozenges? *Warm fluids like tea with honey may help to soothe the throat? *Sleep elevated *Humidifier/Vaporizer Take medication as prescribed Follow up IMMEDIATELY for new or worsening symptoms or no Noticeable imp rovement over the next 48-72 hours. 911 for difficulty breathing or swallowing You were tested for today for COVID19 your test result should be back in the next few hours, you may Check your Results on the [facility] [employer] Clinical Impressions Clinical Impression: Sinusitis Instructions Patient Instructions: DI for Sinusitis, Sinusitis Print Language Print Language: Yoruba Discharge ED Provider: Shantal Castillo [facility] HPI General Stated complaint: congestion, body aches Mode of Arrival: Ambulatory Source of Information: Patient Limitations: No Limitations Time Seen by Provider: 09/06/23 11:04 Description of Symptoms (Recalled from Triage Doc. by RN): Patient reports nasal congestion, wheezing, and low grade fever. HEENT Symptoms (Recalled from RN notes): Yes Resp Symptoms (Recalled from RN notes): No Skin Symptoms (Recalled from RN notes): No MS Symptoms (Recalled from RN notes): No Functional Status (Recalled from RN notes): wnl History of Present Illness Provider Complaint: Patient states that he has been out of town and he started having sinus congestion and pressure, drainage in the back of his throat, low grade fever, headache and felt like when he wakes up he is a little wheezy but that clears up when he is up moving around States thinks he just has a sinus infection but came in wanting to get checked for COVID Related Data Home Medications ?Medication ?Instructions ?Recorded ?Confirmed aspirin 81 mg chewable tablet 81 mg PO DAILY CAD 10/16/19 10/05/21 azelastine 137 mcg (0.1 %) nasal 1 spray intranasal BID . 10/16/19 10/05/21 spray canagliflozin 300 mg tablet 300 mg PO DAILY . 10/16/19 10/05/21 (Invokana) carvedilol 12.5 mg tablet (Coreg) 12.5 mg PO BID CAD 10/16/19 10/05/21 clopidogrel 75 mg tablet (Plavix) 75 mg PO DAILY CAD 10/16/19 10/05/21 fluticasone propionate 50 1 spray intranasal DAILY COPD 10/16/19 10/05/21 mcg/actuation nasal spray,suspension (Flonase Allergy Relief) insulin glargine 100 unit/mL 50 unit SQ QPM dm 10/16/19 10/05/21 subcutaneous solution (Lantus U-100 Insulin) insulin lispro 100 unit/mL 1 sliding scale dose SQ 10/16/19 10/05/21 subcutaneous solution (Humalog USEASDIRECTD dm U-100 Insulin) levothyroxine 112 mcg capsule 112 mcg PO DAILY thyroid 10/16/19 10/05/21 metformin 1,000 mg tablet 1,000 mg PO BID diabetes 10/16/19 10/05/21 nitroglycerin 2.5 mg 2.5 mg PO BID Chest pain 10/16/19 10/05/21 capsule,extended release omeprazole 20 mg capsule,delayed 20 mg PO DAILY GERD 10/16/19 10/05/21 release rosuvastatin 5 mg tablet 5 mg PO DAILY Cholesterol 10/16/19 10/05/21 sacubitril 24 mg-valsartan 26 mg 1 tab PO BID CAD 10/16/19 10/05/21 tablet (Entresto) Previous Rx's ?Medication ?Instructions ?Recorded albuterol sulfate 90 mcg/actuation 2 puff inhalation Q6H PRN SOB, 10/16/19 aerosol inhaler wheezing 30 days #6.7 grams amoxicillin 875 mg tablet 875 mg PO Q12H #20 tabs 04/20/23 benzonatate 100 mg capsule 100 mg PO TIDP PRN Cough #30 caps 04/20/23 guaifenesin 600 mg tablet, 600 - 1,200 mg (1 - 2 x 600 mg) PO 04/20/23 extended release 12 hr (Mucinex) BIDP PRN Congestion #30 tabs oseltamivir 75 mg capsule (Tamiflu) 75 mg PO BID 5 days #10 caps 04/28/23 amoxicillin 875 mg-potassium 1 tab PO Q12H 7 days #14 tabs 09/06/23 clavulanate 125 mg tablet guaifenesin 600 mg tablet, 600 mg PO BID PRN cough #20 tabs 09/06/23 extended release 12 hr (Mucinex) Allergies Allergy/AdvReac Type Severity Reaction Status Date / Time No Known Allergies Allergy Verified 04/20/23 13:14 Worker's Comp Is this a Worker's Comp case?: No PFSH PFS Disclaimer: The information contained in this section may have been updated after the patient was seen, as this information can be updated by other users. Medical History (Reviewed 04/28/23 @ 11:39 by Cisco He ([facility]), SURGICAL DENTAL ASSISTANT) Sinus headache Diabetes mellitus, type 2 Edema Hyperlipidemia History of chest pain Congestive heart failure Surgical History (Reviewed 04/28/23 @ 11:39 by Cisco He ([facility]), SURGICAL DENTAL ASSISTANT) History of tonsillectomy Social History (Reviewed 04/28/23 @ 11:39 by Cisco He ([facility]), SURGICAL DENTAL ASSISTANT) Smoking Status: Former smoker alcohol intake: former substance use type: denies use current occupational status: retired Travel in the last 8 weeks: None household members: spouse housing: house marital status: current occupational exposures/hazards: No do you feel safe at home: Yes victim of physical abuse: No victim of emotional abuse: No victim of sexual abuse: No would you like helpful sources: No ROS Obtained: Yes All systems reviewed & no additional complaints except as documented and Yes Systems reviewed as appropriate & no additional complaints except as documented Constitutional Constitutional: Reports system reviewed and no additional complaints, except as documented, Reports as per HPI, Reports body ache, Reports chills, Reports fever(s) and Reports headache(s) ENT Ears, Nose, Mouth, and Throat: Reports system reviewed and no additional complaints, except as documented, Reports as per HPI, Reports headache(s), Reports sinus pain and Reports sinus pressure Cardiovascular Cardiovascular: Reports system reviewed and no additional complaints, except as documented and Reports as per HPI Respiratory Respiratory: Reports system reviewed and no additional complaints, except as documented, Reports as per HPI, Denies shortness of breath, Denies chest congestion, Denies cough and Reports other (drainage in chest makes him feel wheezy in am) Gastrointestinal Gastrointestingal: Reports system reviewed and no additional complaints, except as documented and as per HPI Neurologic Neurologic: Reports headache(s) Physical Exam General General appearance: alert and in no apparent distress ENT ENT exam: Present mucous membranes moist Expanded ENT Exam Nose exam: Present sinus tenderness Throat exam: Present other (PND noted) Respiratory Respiratory exam: Present normal lung sounds bilaterally; Absent respiratory distress or wheezes Cardiovascular Cardiovascular exam: Present regular rate, normal rhythm and normal heart sounds Neurological Exam Neurological exam: Present alert, oriented X3 and normal gait Medical Decision Making Allan Inquiry Pt receiving controlled substance: No Allan was queried for this patient: No Vital Signs: 09/06/23 10:57 Temperature 98.6 F Temperature Source Oral Pulse Rate [Radial] 77 Respiratory Rate 18 Blood Pressure [Right Arm] 148/74 H Blood Pressure Mean [Right Arm] 98 Blood Pressure Source [Right Arm] Automatic Cuff Blood Pressure Position [Right Arm] Sitting 02 Sat by Pulse Oximetry 96 Oxygen Delivery Method Room Air
[2023-09-06 11:33] VITALS: BP 148/74; PULSE 77; RESP 18; TEMP 37; O2SAT 96
== END 2023-09-06 11:34 | disposition home or self-care (01) ==
PROVIDERS: Emergency Provider Nurse Practitioner; PCP Family Medicine
DX: J01.90 Acute sinusitis, unspecified (principal); R51.9 Headache, unspecified; R09.82 Postnasal drip
CPT/HCPCS: 87635; 99212; 99214; G0463

== ENCOUNTER 2024-01-22 15:00 | Outpatient (RCR) | payer MEDICARE, SELFPAY | END 2024-01-22 23:59 | disposition home or self-care (01) | LOC: PT 15:00 | PROVIDERS: Visit Provider Family Medicine | DX: M25.551 Pain in right hip (principal); M25.552 Pain in left hip | CPT/HCPCS: 97110; 97112; 97163; 97530 ==

== ENCOUNTER 2024-03-20 13:13 | Outpatient (RCR) | payer MEDICARE, SELFPAY | END 2024-04-25 15:00 | disposition home or self-care (01) | LOC: CR 13:13 | PROVIDERS: Visit Provider Internal Medicine Cardiovascular Disease | DX: Z95.5 Presence of coronary angioplasty implant and graft (principal) | CPT/HCPCS: 93798 ==

== ENCOUNTER 2024-05-22 12:50 | Outpatient (CLI) | payer MEDICARE, SELFPAY ==
--- NOTE | 2024-05-22 12:53 | XR_ITS ---
FINAL REPORT CLINICAL HISTORY: hip pain COMPARISON: None FINDINGS: RIGHT HIP Two views of the right hip with an AP view of the pelvis demonstrate no acute fracture or dislocation. There are mild degenerative changes. IMPRESSION: No acute bony abnormality. Reviewed, Interpreted and Dictated by Aleisha Sands MD Transcribed by Leyda Acevedo Authenticated and [facility]
--- NOTE | 2024-05-22 12:53 | XR_ITS ---
FINAL REPORT CLINICAL HISTORY: Hip pain COMPARISON: None FINDINGS: LEFT HIP: Two views of the left hip with an AP view of the pelvis demonstrate no acute fracture or dislocation. Mild degenerative changes are noted. IMPRESSION: No acute bony abnormality. Reviewed, Interpreted and Dictated by Aleisha Sands MD Transcribed by Leyda Acevedo Authenticated and [facility]
--- OUTSIDE RECORDS SUMMARY | 2024-05-22 23:23 | XMS_ITS | Data Portability ---
Author Organization [facility], [facility] CLOSED Address [address] [place] [address] Care Team Providers Care Home Health Aide Name Role Phone QUINTIN RAPP Electrical Appliance Servicer YANG HERNANDEZ Primary Care Provider Assessment No assessment recorded. Plan of Treatment Reminders Order Date Submit Date Provider Last Modified By Organization Details Last Modified Time Details Appointments FOLLOW UP DAK 2024 10:40A M NAYELY RAPP PA-C Not available Not available Not available Lab surgical pathology study 2023 024 [facility], [address] [place] [address], [phone], 12/11/2023 10:29:40 Referral None recorded. Procedures None recorded. Surgeries None recorded. Imaging None recorded. Medication Orders None recorded. Patient TargetsNo targets recorded. Patient InstructionsNo instructions recorded. Reason for Referral None Reported. Results Created Date Observation Date Name Description Value Unit Range Abnormal Flag Note LastModifiedBy Organization Detail LastModifiedTime 12/10/1912/10/2023 SURGI KHOI surgical SEE BELOW Angle Inlet topat holog y Repor t NAME: CHAIM HUMMEL PATH: [id number] PROCE DURE DATE: 12/09 SIGNO UT DATE: 12/10 Copy to: Diagn osis: Left Cheek - ACTIN IC KERAT OSIS SOURC E OF SPECI MEN: SKIN, L CHEEK CLINI KHOI INFOR MATIO N: R/O: AK VS SCC. TX'D W/ ED&C. Gross Descr iptio n: The speci men consi sted of a singl e mathis fragm ent which measu red 5 x 5 x 1 mm. All is submi tted in toto in one casse tte. Micro scopi c Descr iptio n: Atypi khoi kerat inocy angi are prese nt withi n the lower epide rmis. MARISSA STYLES MD An d Out Date: 12/10 10:29 1 Not Available [facility] [address] [place], [address], 12/11/2023 10:29:40 Result Notes None recorded. Procedures Surgical History Date Name Laterality Status Provider Name and Address Organization Details Recorded Time 4 DAK - Cryo [place] completed [facility] 12/10/2023 10:58:03 4 Blade Biopsy w/ ED&C completed KEREN LENNON [address] [place], [address], [facility] 12/10/2023 12:43:28 4 Destruction BN Lesions completed [facility] 12/10/2023 11:01:35 4 DAK - Cryo AK completed Brennon Sin [facility] 06/11/2023 11:00:15 cataract surgery completed Dinah Casper [facility] 06/11/2023 10:42:06 Imaging Results None recorded. Procedure Notes None recorded. Medical Equipment None Reported. Allergies Allergen ID Allergen Name Allergen Category Reaction Reaction Severity Criticality Documentation Date Start Date Code Code System Note Provider Name and Address Organization Details Recorded Time 309292 Bactrim medicatio n Not available Not available Not available 06/11/2023 07243 9 [facility] 10:[facility]33 041208 Biaxin medicatio n Not available Not available Not available 06/11/202354729 9 [facility] 10:[facility]40 Medications Name Sig Start Date Stop Date Status Note LastModified by Organization Details LastModified Time Toprol XL 25 mg tablet,exte nded release active Medication Descriptio n: metoprolol succinate; Route:oral ; refills:0 Not Available Not Available Not Available Multiple Vitamin capsule active Medication Descriptio n: multivitam in; Route:oral ; refills:3 Not Available Not Available Not Available nitroglycer in 0.3 mg sublingual tablet As needed active Frequency: prn;Medica tion Descriptio n: nitroglyce rin; Route:subl ingual; refills:0 Not Available Not Available Not Available Synthroid 125 mcg tablet active Medication Descriptio n: levothyrox ine; Route:oral ; refills:0 Not Available Not Available Not Available Lantus U-100 Insulin 100 unit/mL subcutaneou s solution active Medication Descriptio n: insulin glargine; Route:subc utaneous; refills:0 Not Available Not Available Not Available Plavix 75 mg tablet active Medication Descriptio n: clopidogre l; Route:oral ; refills:0 Not Available Not Available Not Available simvastatin 20 mg tablet active Medication Descriptio n: simvastati n; Route:oral ; refills:0 Not Available Not Available Not Available Astelin 137 mcg (0.1 %) nasal spray Two times a day 2012 active Duration: 30 days;Instr uctions: 2 sprays in each nostril BID;Freque ncy: bid;Medica tion Descriptio n: azelastine nasal; Dosage:2 sprays; Route:nasa l; refills:6; Quantity:1 spray Not Available Not Available Not Available Novolog U-100 Insulin aspart 100 unit/mL subcutaneou s solution Three times a day active Frequency: tid;Medica tion Descriptio n: insulin aspart; Route:subc utaneous; refills:0 Not Available Not Available Not Available Viagra 100 mg tablet Daily active Duration: 10 days;Frequ ency: daily;Alt Frequency: prn;Medica tion Descriptio n: sildenafil ; Dosage:1/2 -1; Route:oral ; refills:5; Quantity:1 0 tablet Not Available Not Available Not Available [place] 5 mg-325 mg tablet active Medication Descriptio n: acetaminop hen-hydroc odone; Route:oral ; refills:0 Not Available Not Available Not Available fluticasone propionate 50 mcg/actuati on nasal spray,suspe nsion Two times a day 2012 active Instructio ns: 2 sprays each nostril BID, angling the tip of the applicator towards the top of the ear on the same side.;Freq uency: bid;Medica tion Descriptio n: fluticason e nasal; Dosage:2 sprays; Route:nasa l; refills:11 ; Quantity:1 spray Not Available Not Available Not Available Flonase active Not Available Not Avail able Not Available Coreg active Not Available Not Availa ble Not Available omeprazole active Not Available Not Av ailable Not Available Lasix active Not Available Not Availa ble Not Available albuterol sulfate active Not Available Not Available Not Available Plavix active Not Available Not Availa ble Not Available Synthroid active Not Available Not Izabela ilable Not Available isosorbide active Not Available Not Av ailable Not Available metformin active Not Available Not Izabela ilable Not Available rosuvastati n active Not Available Not Available Not Available aspirin (bulk) 100 % powder Daily active Frequency: daily;Medi cation Descriptio n: aspirin; Route:comp ounding; refills:0 Not Available Not Available Not Available Trulicity active Not Available Not Izabela ilable Not Available Entresto active Not Available Not Avai lable Not Available Astepro Allergy active Not Available Not Available Not Available Vitals None Recorded Social History Question Answer Notes LastModified by Organizat ion Details LastModified Time Tobacco Smoking Status Never Smoker Dinah Casper [facility] 06/11/2023 10:41:53 What Is Your Level Of Alcohol Consumption? None [email or web address] Information not available 12/10/2023 Sunscreen Use? Yes [email or web address] Informatio n not available 12/10/2023 Tanning Bed Use No [email or web address] Informati on not available 12/10/2023 Are You Or Trying To Become ? No [email or web address] Information not available 12/10/2023 Are You On Control? No [email or web address] Information not available 12/10/2023 Are You ? No [email or web address] Information not available 12/10/2023 What Was The Date Of Your Most Recent Tobacco Screening? 12/10/2023 Information not available 12/10/2023 Do You Use Any Illicit Or Recreational Drugs? No [email or web address] Information not available 12/10/2023 Has Tobacco Cessation Counseling Been Provided? No [email or web address] Information not available 12/10/2023 Do You Or Have You Ever Used Any Other Forms Of Tobacco Or Nicotine? No [email or web address] Information not available 12/10/2023 Sex: Unknown Functional Status None recorded. Mental Status None recorded. Family History Nothing Reported. Medical History Condition Response Skin Cancer Y Squamous Cell Carcinoma Y Past Encounters Encounter ID Performer Location Encounter Start Date Encounter Closed Date Diagnosis/Indication Diagnosis SNOMED-CT Code Diagnosis ICD10 Code Diagnosis Note [id number] KEREN LENNON [address] [address] 06/11/2023 10:33:29 06/11/2023 11:27:49 Multiple benign melanocytic nevi 730294330 D22.5 L81.4 L82.1 D18.01 The benign nature of keratoses and lentigines was discussed with the patient.King n protection with SPF 30 broad spectrum sunscreen and protective gear discussed. Look for physical dennis sunscreens with at least SPF 30 containing zinc oxide or titanium dioxide as active ingredient .Recommend monthly self examinatio ns and yearly full skin examinatio n with a dermatolog y provider.R ecommend yearly eye exam.Recom mend OTC Vitamin D supplement .Patient instructed to call if any suspicious lesions are noted. History of malignant neoplasm of skin [id number] Z85.828 L90.5 Scar(s) clear with no evidence recurrence . Continue to monitor for any changes. Actinic keratosis 007 L57.0 The nature of the diagnosis was explained. Pre-cancer ous.Will treat with LN2. Pt used 5FU cream on scalp, face, ears but not full the entire course. Pt may need to use 5FU again since he did not finish treatment. Will discuss doing treatment at pts next visit. [id number] KEREN LENNON [facility] [address] [place] [address] 12/10/2023 10:18:31 12/10/2023 11:07:29 Multiple benign melanocytic nevi 130751577 D22.5 L81.4 D18.01 L82.1 The benign nature of keratoses and lentigines was discussed with the patient. Sun protection with SPF 30 broad spectrum sunscreen and protective gear discussed. Look for physical dennis sunscreens with at least SPF 30 containing zinc oxide or titanium dioxide as active ingredient . Recommend monthly self examinatio ns and yearly full skin examinatio n with a dermatolog y provider. Recommend yearly eye exam. Recommend OTC Vitamin D supplement . Patient instructed to call if any suspicious lesions are noted. History of malignant neoplasm of skin [id number] Z85.828 Scar(s) clear with no evidence recurrence . Continue to monitor for any changes. Neoplasm o f uncertain behavior of skin 05090660 D48.5 The etiology of lesion(s) discussed. Biopsy recommende d. Will call pt with results or post to portal if benign. Actinic keratosis 007 L57.0 The nature of the diagnosis was explained. Pre-cancer ous.Will treat with LN2. Pt used 5FU cream on scalp, face, ears but not full the entire course. Pt may need to use 5FU again since he did not finish treatment. Will discuss doing treatment at pts next visit. Inflamed s eborrheic keratosis [id number] L82.0 R58 Benign appearing lesions.Si nce bothersome and have bled previously , will treat with LN2.Lesion s treated today may persist.F/ u if treated lesions persist. Health Concerns Section Related Observation LastModified by Organization Detai ls LastModified Time None Recorded Concern Status LastModified by Organization Details LastModified Time None Recorded Advance Directives Directive None Recorded Payers Encounter Date Sequence Insurance Name Policy Number Policy Galeana Covered Member ID Galeana Member ID Guarantor Name 06/11/2023 1 [facility] (MEDICARE REPLACEMENT/A DVANTAGE - PPO) [id number] Chaim Hummel [id number] Chaim Hummel 12/10/2023 1 [facility] (MEDICARE REPLACEMENT/A DVANTAGE - PPO) [id number] Chaim Hummel [id number] Chaim Hummel Notes Date Note Type Note Provider Name and Address Organization Details Recorded Time 06/11/2023 text/html waist up6 month examscc - multiple sitesReports: no concerns KEREN LENNON [address] [place], [address], [facility] 06/11/2023 12:18:22 12/10/2023 text/html waist up6 month examscc - multiple sitesReports: I have a couple of areas of concern.Locatio n: R ArmDuration: 1 monthReports: It feels rough and patchy, kind of like a wart.Location: ScalpDuration: 6 monthsReports: Rough spots I have.Location: L EarDuration: Pt unsureReports: A bumpLocation: R EarDuration: Pt unsureReports: A bump QUINTIN RAPP PA [address] [place], [address], [facility] 12/10/2023 12:44:04
== END 2024-05-22 23:59 | disposition home or self-care (01) ==
LOC: RAD 12:51
PROVIDERS: PCP Family Medicine; Visit Provider Physician Assistant
DX: M25.551 Pain in right hip (principal); M25.552 Pain in left hip
CPT/HCPCS: 73502

== ENCOUNTER 2024-07-29 12:39 | Outpatient (CLI) | payer MEDICARE, SELFPAY ==
--- OUTSIDE RECORDS SUMMARY | 2024-07-29 12:41 | XMS_ITS | Clinical Summary ---
Author Organization [facility] Address [address] [place] [address] Phone Care Team Providers Care Termite Inspector Name Role Phone Koko Viveros Unavailable Unavailable Conditions or Problems No information available. Medications Medication Instructions Start Date Stop Date Generic Name [facility] Provider MYAMBUTOL 400 MG ORAL TABLET 4 tablets daily 4 ETHAMBUTOL HCL [id number] Koko Viveros Medications Administered No information available. Allergies, Adverse Reactions, Alerts No information available. Results No information available. Plan of Care No information available. Procedures No information available. Vital Signs No information available. Immunizations No information available. Advance Directives No information available.
--- OUTSIDE RECORDS SUMMARY | 2024-07-29 12:42 | XMS_ITS | Data Portability ---
Author Organization [facility] Tiny[facility], [place] Address [address] [place] [address] Care Team Providers Care Brush Sander Name Role Phone QUINTIN RAPP Mold Operator YANG HERNANDEZ Primary Care Provider [phone] Assessment No assessment recorded. Plan of Treatment Reminders Order Date Submit Date Provider Last Modified By Organization Details Last Modified Time Details Appointments FOLLOW UP DAK 2024 10:40A M NAYELY RAPP PA-C Not available Not available Not available Lab surgical pathology study 2023 024 [facility], [address] [place] [address], [address], 12/11/2023 10:29:40 Referral None recorded. Procedures None recorded. Surgeries None recorded. Imaging None recorded. Medication Orders None recorded. Patient TargetsNo targets recorded. Patient InstructionsNo instructions recorded. Reason for Referral None Reported. Results Created Date Observation Date Name Description Value Unit Range Abnormal Flag Note LastModifiedBy Organization Detail LastModifiedTime 12/10/1912/10/2023 SURGI KHOI surgical SEE BELOW [place] topat holog y Repor t NAME: CHAIM [...] Out Date: 12/10 10:29 1 Not Available [facility] [address] [place], [address], 12/11/2023 10:29:40 Result Notes None recorded. Procedures Surgical History Date Name Laterality Status Provider Name and Address Organization Details Recorded Time 5 DAK - Cryo [place] [facility] [place] 11:06:25 5 Destruction BN Lesions [place] [facility]2024 11:06:22 4 DAK - Cryo [place] [facility] [place]10/2023 10:58:03 4 Blade Biopsy w/ ED&C completed KEREN LENNON [address] [place], [address], [facility] 12/10/2023 12:43:28 4 Destruction BN Lesions [place] [facility] [place]/10/2023 11:01:35 4 DAK - Cryo AK completed Brennon Sin [facility] 06/11/2023 11:00:15 cataract surgery completed Dinah Casper [facility] 06/11/2023 10:42:06 placement of stent in pulmonary artery completed Valerio Couch [facility] 06/09/2024 10:37:51 Imaging Results None recorded. Procedure Notes None recorded. Medical Equipment None Reported. Allergies Allergen ID Allergen Name Allergen Category Reaction Reaction Severity Criticality Documentation Date Start Date Code Code System Note Provider Name and Address Organization Details Recorded Time 817870 Bactrim medicatio n Not available Not available Not available 06/11/2023 64908 9 RxNorm Dinah Tremayne [facility] 4 10:41:33 276175 Biaxin medicatio n Not available Not available Not available 06/11/2023 23517 9 RxNorm Dinah Casper [facility] 10:41:40 Medications Name Sig Start Date Stop [...] tablet Not Available Not Available Not Available Ruby 5 mg-325 mg tablet active Medication Descriptio [...] Tobacco Smoking Status Never Smoker Dinah Casper [facility] 06/11/2023 10:41:53 Sunscreen Use? Yes [email or web address] Informatio n not available 12/10/2023 Tanning Bed Use No [email or web address] Informati on not available 12/10/2023 Are You Or Trying To Become ? No [email or web address] Information not available 12/10/2023 Are You On Control? No Information not available 12/10/2023 Are You ? No [email or web address] Information not available 12/10/2023 What Was The Date Of Your Most Recent Tobacco Screening? 06/09/2024 [email or web address] Information not available 06/09/2024 Has Tobacco Cessation Counseling Been Provided? No [email or web address] Information not available 12/10/2023 Sex: Unknown Functional Status Question Answer Note LastModified by Organizat ion Details LastModified Time Do you use any illicit or recreational drugs? No [email or web address] Information not available 12/10/2023 Do you or have you ever used any other forms of tobacco or nicotine? No Information not available 12/10/2023 What is your level of alcohol consumption? None Information not available 12/10/2023 Mental Status None recorded. Family History Nothing Reported. Medical History Condition Response Skin Cancer Y Squamous Cell Carcinoma Y Past Encounters Encounter ID Performer Location Encounter Start Date Encounter Closed Date Diagnosis/Indication Diagnosis SNOMED-CT Code Diagnosis ICD10 Code Diagnosis Note [id number] KEREN LENNON [address] [address] 06/11/2023 10:33:29 06/11/2023 11:27:49 Multiple benign melanocytic nevi 727177685 D22.5 L81.4 L82.1 D18.01 The benign nature [...] noted. History of malignant neoplasm of skin 675498245 Z85.828 L90.5 Scar(s) clear with no evidence [...] discuss doing treatment at pts next visit. [id number] KEREN LENNON [facility] [address] [place] [address] 12/10/2023 10:18:31 12/10/2023 11:07:29 Multiple benign melanocytic nevi 790744797 D22.5 L81.4 D18.01 L82.1 The benign nature [...] noted. History of malignant neoplasm of skin 194629353 Z85.828 Scar(s) clear with no evidence recurrence . Continue to monitor for any changes. Neoplasm o f uncertain behavior of skin 55782512 D48.5 The etiology of lesion(s) discussed. Biopsy recommende d. Will call pt with results or post to portal if benign. Actinic keratosis 190028 007 L57.0 The nature of the diagnosis was explained. Pre-cancer ous.Will treat with LN2. Pt used 5FU cream on scalp, face, ears but not full the entire course. Pt may need to use 5FU again since he did not finish treatment. Will discuss doing treatment at pts next visit. Inflamed s eborrheic keratosis 894961961 L82.0 R58 Benign appearing lesions.Si nce bothersome and have bled previously , will treat with LN2.Lesion s treated today may persist.F/ u if treated lesions persist. [id number] KEREN LENNON [place] [address] [place] [address] 06/09/2024 10:19:08 06/09/2024 11:13:12 Multiple benign melanocytic nevi 592670451 D22.5 L81.4 D18.01 L82.1 The benign nature [...] noted. History of malignant neoplasm of skin 389793025 Z85.828 Scar(s) clear with no evidence recurrence . Continue to monitor for any changes. Actinic keratosis 007 L57.0 The nature of the diagnosis was explained. Pre-cancer ous.Will treat with LN2. Will consider 5-FU fall 2024. Verruca vulgaris 6872105 3 B07.8 R20.8 The nature of the diagnosis was discussed. Warts are viral. Try not to pick.Will treat with LN2 today.Lesi ons treated today may persist.F/ u if treated lesion persist. Health Concerns Section Related Observation LastModified by Organization Detai ls LastModified Time None Recorded Concern Status LastModified by Organization Details LastModified Time None Recorded Advance Directives Directive None Recorded Payers Insurance Date Sequence Insurance Name Policy Number Policy Galeana Covered Member ID Galeana Member ID Guarantor Name 06/06/2024 1 [facility] (MEDICARE REPLACEMENT/A DVANTAGE - PPO) [id number] Chaim Hummel [id number] Chaim Hummel Notes Date Note Type Note Provider Name and Address Organization Details Recorded Time 06/11/2023 text/html waist up6 month examscc - multiple sitesReports: no concerns KEREN LENNON [address] [place], [address], [place] [facility] 06/11/2023 12:18:22 12/10/2023 text/html waist up6 month examscc - multiple sitesReports: I have a couple of areas of concern.Location: R ArmDuration: 1 monthReports: It feels rough and patchy, kind of like a wart.Location: ScalpDuration: 6 monthsReports: Rough spots I have.Location: L EarDuration: Pt unsureReports: A bumpLocation: R EarDuration: Pt unsureReports: A bump KEREN LENNON [address] [place], [address], [facility] 12/10/2023 12:44:04 06/09/2024 text/html waist up 6 month hx: SCC- R Scalp, Anterior Neck, R Postaurciular Neck, L Scalp, BCC- L Upper Back report: i have a spot on my scalp. wart location: R handduration: 2-3 weekstx tried: nonereports: none KEREN LENNON [address] [place], [address], [facility] 06/09/2024 12:16:23
--- OUTSIDE RECORDS SUMMARY | 2024-07-29 12:42 | XMS_ITS | Continuity of Care Document ---
Author Organization [facility] MICAH Koehler FLORA Address [address] [place] [address] Care Team Providers Care Respiratory Clinician Name Role Phone QUINTIN RAPP Gluten Settling Tender YANG HERNANDEZ Primary Care Provider [phone] Assessment No assessment recorded. Plan of Treatment Reminders Order Date Submit Date Provider Last Modified By Organization Details Last Modified Time Details Appointments FOLLOW UP [facility] 2024 10:40A M NAYELY RAPP PA-C Not available Not available Not available Lab None recorded . Referral None recorded . Procedures None recorded . Surgeries None recorded . Imaging None recorded . Medication Orders None recorded . Patient TargetsNo targets recorded. Patient InstructionsNo instructions recorded. Reason for Referral None Reported. Procedures Surgical History Date Name Laterality Status Provider Name and Address Organization Details Recorded Time 5 DAK - Cryo AK completed [facility] [place] 06/09/2024 11:06:25 5 Destruction BN Lesions completed [facility] 06/09/2024 11:06:22 4 DAK - Cryo AK completed [facility] 12/10/2023 10:58:03 4 Blade Biopsy w/ ED&C completed KEREN LENNON [address] [place], [address], [facility] 12/10/2023 12:43:28 4 Destruction BN Lesions completed [facility] 12/10/2023 11:01:35 4 DAK - Cryo AK completed Brennon Lumpkins [facility] 06/11/2023 11:00:15 cataract surgery completed Dinah Casper [facility] 06/11/2023 10:42:06 placement of stent in pulmonary artery completed Valerio Couch [facility] 06/09/2024 10:37:51 Imaging Results None recorded. Procedure Notes None recorded. Medical Equipment None Reported. Allergies Allergen ID Allergen Name Allergen Category Reaction Reaction Severity Criticality Documentation Date Start Date Code Code System Note Provider Name and Address Organization Details Recorded Time 666776 Bactrim medicatio n Not available Not available Not available 06/11/2023 08103 9 [facility] 10:[facility]33 069267 Biaxin medicatio n Not available Not available Not available 06/11/2023 64625 9 RxNorm Dinah Casper [facility] 10:41:40 Medications Name Sig Start Date [...] tablet Not Available Not Available Not Available [place] 5 mg-325 mg tablet active Medication Descriptio [...] Time Tobacco Smoking Status Never Smoker Dinah Tremayne [facility] 06/11/2023 10:41:53 Sunscreen Use? Yes [email or web address] Informatio n not available 12/10/2023 Tanning Bed Use No [email or web address] Informati on not available 12/10/2023 Are You Or Trying To Become ? No [email or web address] Information not available 12/10/2023 Are You On Control? No [email or web address] Information not available 12/10/2023 Are You ? No Information not available 12/10/2023 What Was The Date Of Your Most Recent Tobacco Screening? 06/09/2024 [email or web address] Information not available 06/09/2024 Has Tobacco Cessation Counseling Been Provided? No [email or web address] Information not available 12/10/2023 Sex: Unknown Functional Status Question Answer Note LastModified by Organizat ion Details LastModified Time Do you use any illicit or recreational drugs? No [email or web address] Information not available 12/10/2023 Do you or have you ever used any other forms of tobacco or nicotine? No [email or web address] Information not available 12/10/2023 What is your level of alcohol consumption? None [email or web address] Information not available 12/10/2023 Mental Status None recorded. Family History Nothing Reported. Medical History Condition Response Skin Cancer Y Squamous Cell Carcinoma Y Past Encounters Encounter ID Performer Location Encounter Start Date Encounter Closed Date Diagnosis/Indication Diagnosis SNOMED-CT Code Diagnosis ICD10 Code Diagnosis Note [id number] KEREN LENNON [place] [address] [place] [address] 06/09/2024 10:19:08 06/09/2024 11:13:12 Multiple benign melanocytic nevi 954703030 D22.5 L81.4 D18.01 L82.1 The benign nature [...] noted. History of malignant neoplasm of skin 652892342 Z85.828 Scar(s) clear with no evidence recurrence . Continue to monitor for any changes. Actinic keratosis 007 L57.0 The nature of the diagnosis was explained. Pre-cancer ous.Will treat with LN2. Will consider 5-FU fall 2024. Verruca vulgaris 8127655 3 B07.8 R20.8 The nature of the diagnosis was discussed. Warts are viral. Try not to pick.Will treat with LN2 today.Lesi ons treated today may persist.F/ u if treated lesion persist. Health Concerns Section Related Observation LastModified by Organization Detai ls LastModified Time None Recorded Concern Status LastModified by Organization Details LastModified Time None Recorded Payers Encounter Date Sequence Insurance Name Policy Number Policy Galeana Covered Member ID Galeana Member ID Guarantor Name 06/09/2024 1 [facility] (MEDICARE REPLACEMENT/A DVANTAGE - PPO) [id number] Chaim Hummel [id number] Chaim Hummel Notes Date Note Type Note Provider Name and Address Organization Details Recorded Time 06/09/2024 text/html waist up 6 month hx: SCC- R Scalp, Anterior Neck, R Postaurciular Neck, L Scalp, BCC- L Upper Back report: i have a spot on my scalp. wart location: R handduration: 2-3 weekstx tried: nonereports: none KEREN LENNON [address] [place], [address], [place] [facility] 06/09/2024 12:16:23
[2024-07-29] MEDS: ALBUTEROL 0.083% 2.5 MG/3 ML NEB IH (13:46)
== END 2024-07-29 23:59 | disposition home or self-care (01) ==
LOC: RT 12:40
PROVIDERS: PCP Family Medicine; Visit Provider Internal Medicine Pulmonary Disease
DX: J44.9 Chronic obstructive pulmonary disease, unspecified (principal)
CPT/HCPCS: 94060; 94618; 94726; 94729

== ENCOUNTER 2024-11-10 14:00 | Outpatient (RCR) | payer MEDICARE, SELFPAY | END 2024-11-10 23:59 | disposition home or self-care (01) | LOC: PT 14:00 | PROVIDERS: PCP Family Medicine; Visit Provider Orthopaedic Surgery | DX: M51.16 Intervertebral disc disorders with radiculopathy, lumbar region (principal) | CPT/HCPCS: 97110; 97162; 97530 ==

== ENCOUNTER 2024-12-11 15:00 | Outpatient (RCR) | payer MEDICARE, SELFPAY | END 2024-12-11 23:59 | disposition home or self-care (01) | LOC: PT 15:00 | PROVIDERS: PCP Family Medicine; Visit Provider Orthopaedic Surgery | DX: M51.369 Other intervertebral disc degeneration, lumbar region without mention of lumbar back pain or lower extremity pain (principal); M54.10 Radiculopathy, site unspecified | CPT/HCPCS: 97110; 97112; 97530 ==

== ENCOUNTER 2024-12-23 15:00 | Outpatient (RCR) | payer MEDICARE, SELFPAY | END 2024-12-23 23:59 | disposition home or self-care (01) | LOC: PT 15:00 | PROVIDERS: PCP Family Medicine; Visit Provider Orthopaedic Surgery | DX: M51.362 Other intervertebral disc degeneration, lumbar region with discogenic back pain and lower extremity pain (principal); M51.16 Intervertebral disc disorders with radiculopathy, lumbar region | CPT/HCPCS: 97110; 97112; 97530 ==

== ENCOUNTER 2025-02-08 11:46 | Emergency (ER) | payer MEDICARE, SELFPAY ==
--- OUTSIDE RECORDS SUMMARY | 2025-01-14 08:00 | XMS_ITS | Encounter Summary ---
Author Organization [facility] Address [address] [address] Care Team Providers Care Joint Terminal Attack Controller Name Role Phone Canelo Madrigal MD Primary Care Provider [phone] Reason for Referral * Durable Medical Equipment (Routine) - Closed Specialty Diagnoses / Procedures Referred By Contac t Referred To Contact Diagnoses ROXANNE (obstructive sleep apnea) Procedures PAP Therapy Saira Benavidez APRN [address] [place] [address] Phone: tel: fax: PATIENT [facility] - [address] [place] [address] Phone: tel: fax: Referral ID Status Reason Start Date Expiration Date Visits Re quested Visits Authorized [id number] Closed 01/14/2025 04/15/2026 1 1 Reason for Visit * Reason Comments Follow-up Encounter Details Date Type Department Care Team (Late st Contact Info) Description 01/14/2025 8:00 AM EST Telemedicine [facility] [address] [place] [id number] Saira Benavidez APRN [address] [place] [address] ROXANNE (obstructive sleep apnea) (Primary Dx) Social History Tobacco Use Types Packs/Day Years Used Date Smoking Tobacco: Former Cigarettes 1 30 0 02/12/1963 - 02/12/1993 Passive Smoke Exposure: Past Smokeless Tobacco: Never Alcohol Use Standard Drinks/Week Comments No 0 (1 standard drink = 0.6 oz pur e alcohol) AUDIT-C Answer Date Recorded Q1: How often do you have a drink containing alcohol? Never 03/07/2024 Q2: How many drinks containi ng alcohol do you have on a typical day when you are drinking? Patient does not drink Q3: How often do you have si x or more drinks on one occasion? Never 03/07/2024 PHQ-2 Answer Date Recorded Retired PHQ-9: Brief Depression Severity Measure Score 0 11/16/2022 Exercise Vital Sign Answer Date Recorde d On average, how many days pe r week do you engage in moderate to strenuous exercise (like a brisk walk)? 5 days 04/18/2022 On average, how many minutes do you engage in exercise at this level? 20 min 04/18/2022 Hunger Vital Sign Answer Date Recorded Within the past 12 months, y ou worried that your food would run out before you got the money to buy more. Never true 03/07/19 25 Within the past 12 months, t he food you bought just didn't last and you didn't have money to get more. Never true 03/07/2024 PRAPARE - Transportation Answer Date Re corded In the past 12 months, has l ack of transportation kept you from medical appointments or from getting medications? No 02/13 In the past 12 months, has l ack of transportation kept you from meetings, work, or from getting things needed for daily living? No 03/07/2024 Abuse Screen Answer Date Recorded Feels Unsafe at Home or Work/School no 03/07/2024 Feels Threatened by Someone no 02/13 Does Anyone Try to Keep You From Having Contact with Others or Doing Things Outside Your Home? no 03/07/2024 Physical Signs of Abuse Present no 03/07/2024 Housing Stability Answer Date Recorded Current Living Arrangements home 02/13 Potentially Unsafe Housing Conditions unable to assess 03/07/2024 Employment Answer Date Recorded Do you want help finding or keeping work or a job? I do not need or want help 03/07/2024 Disabilities Answer Date Recorded Difficulty Concentrating, Remembering or Making Decisions no 03/07/2024 Difficulty Managing Errands Independently no 03/07/2024 Education Answer Date Recorded Do you want help with school or training? For example, starting or completing job training or getting a high school diploma, GED or equivalent No 03/07/2024 Preferred Language Cameroonian 03/07/2024 PHQ-2 Answer Date Recorded Patient Health Questionnaire-2 Score 0 11/20/2024 Sex and Gender Information Value Date Recorded Sex Assigned at Male 05/09/2024 7:29 AM EDT Legal Sex Male 10:36 AM EDT Gender Identity Not on file Sexual Orientation Straight 05/09/2024 7: 29 AM EDT documented as of this encounter Last Filed Vital Signs Vital Sign Reading Time Taken Comments Blood Pressure - - Pulse - - Temperature - - Respiratory Rate - - Oxygen Saturation - - Inhaled Oxygen Concentration - - Weight 83 kg (183 lb) 01/14/2025 7:58 AM EST Height 177.8 cm (5' 10 ) 01/14/2025 7:58 AM EST Body Mass Index 26.26 01/14/2025 7:58 AM EST documented in this encounter Progress Notes * Saira Benavidez, [employer]EST TECH[employer]OLOGY PROFESSOR - 01/14/2025 8:00 AM EST Chief Complaint: Chief Complaint Patient presents with Follow-up HPI: Chaim Hummel is a 69 y.o. male here for follow-up of sleep apnea. Patient was last seen 01/16/2024. Patient continues to do well with CPAP therapy. Patient is sleeping 6 to 7 hours nightly. Patient goes to sleep within 10 minutes and is up 1-2 times in the night for the restroom. Patient has an Houston score of 7/24. Patient is doing well without concern or complaint and will continue therapy. Current medications are: Current Outpatient Medications: Accu-Chek Guide test strip, USE TO CHECK BLOOD SUGAR FOUR TIMES DAILY DIRECTED, Disp: 400 each, Rfl: 2 acetaminophen (TYLENOL) 325 MG tablet, Take 2 tablets by mouth Every 4 (Four) Hours As Needed for Mild Pain (temperature greater than 101F)., Disp: , Rfl: albuterol sulfate HFA 108 (90 Base) MCG/ACT inhaler, Inhale 2 puffs Every 4 (Four) Hours As Needed for Wheezing., Disp: 1 g, Rfl: 2 aspirin 81 MG EC tablet, Take 1 tablet by mouth Daily., Disp: , Rfl: Azelastine HCl 137 MCG/SPRAY solution, USE 2 SPRAYS IN EACH NOSTRIL TWICE A DAY DIRECTED BY PROVIDER, Disp: 90 mL, Rfl: 3 carvedilol (COREG) 6.25 MG tablet, Take 1 tablet by mouth Every 12 (Twelve) Hours., Disp: 180 tablet, Rfl: 3 clopidogrel (PLAVIX) 75 MG tablet, Take 1 tablet by mouth Daily., Disp: 30 tablet, Rfl: 11 coenzyme Q10 100 MG capsule, Take 1 capsule by mouth Daily., Disp: , Rfl: empagliflozin (Jardiance) 25 MG tablet tablet, Take 1 tablet by mouth Daily., Disp: 90 tablet, Rfl:3 ferrous sulfate 325 (65 FE) MG tablet, Take 1 tablet by mouth Daily With Breakfast., Disp: , Rfl: fluticasone (FLONASE) 50 MCG/ACT nasal spray, USE TWO (2) SPRAYS IN EACH NOSTRIL ONCE A DAY DIRECTED; SHAKE GENTLY, Disp: 48 g, Rfl: 0 furosemide (LASIX) 40 MG tablet, Take 0.5 tablets by mouth Daily., Disp: , Rfl: HumaLOG KwikPen 100 UNIT/ML solution pen-injector, Inject 10 Units under the skin into the appropriate area as directed 4 (Four) Times a Day Before Meals & at Bedtime. Max daily dose 50u, Disp: 45 mL, Rfl: 3 Insulin Glargine (Lantus SoloStar) 100 UNIT/ML injection pen, Inject 48 Units under the skin into the appropriate area as directed Daily., Disp: 45 mL, Rfl: 3 isosorbide mononitrate (IMDUR) 60 MG 24 hr tablet, Take 1 tablet by mouth Daily., Disp: , Rfl: Krill Oil 300 MG capsule, Take 1 capsule by mouth Daily., Disp: , Rfl: levothyroxine (SYNTHROID, LEVOTHROID) 112 MCG tablet, TAKE 1 TABLET BY MOUTH ONCE DAILY, Disp: 90 tablet, Rfl: 3 metFORMIN ER (GLUCOPHAGE-XR) 500 MG 24 hr tablet, TAKE 2 TABLETS BY MOUTH TWICE DAILY, Disp: 360 tablet, Rfl: 3 Multiple Vitamins-Minerals (EYE HEALTH PO), Take by mouth., Disp: , Rfl: nitroglycerin (NITROSTAT) 0.4 MG SL tablet, Place 1 tablet under the tongue Every 5 (Five) Minutes As Needed for Chest Pain. Take no more than 3 doses in 15 minutes., Disp: 25 tablet, Rfl: 1 pantoprazole (PROTONIX) 40 MG EC tablet, TAKE ONE (1) TABLET BY MOUTH ONCE DAILY, Disp: 90 tablet, Rfl: 1 rosuvastatin (CRESTOR) 40 MG tablet, Take 1 tablet by mouth Every Night., Disp: , Rfl: sacubitril-valsartan (ENTRESTO) 24-26 MG tablet, Take 1 tablet by mouth Every 12 (Twelve) Hours., Disp: 60 tablet, Rfl: 6 Symbicort 160-4.5 MCG/ACT inhaler, , Disp: , Rfl: vitamin C (ASCORBIC ACID) 250 MG tablet, Take 1 tablet by mouth Daily., Disp: , Rfl: VITAMIN D PO, Take 2,000 Int'l Units by mouth Daily., Disp: , Rfl: . The patient's relevant past medical, surgical, family and social history were reviewed and updated in [facility] as appropriate. Review of Systems HENT: Positive for congestion. Eyes: Positive for visual disturbance. Respiratory: Positive for apnea. Cardiovascular: Positive for chest pain and leg swelling. Gastrointestinal: Heartburn Endocrine: Positive for cold intolerance and heat intolerance. Genitourinary: Positive for frequency. Musculoskeletal: Positive for arthralgias, back pain and myalgias. Allergic/Immunologic: Positive for environmental allergies. Neurological: Positive for dizziness, weakness, light-headedness and numbness. Psychiatric/Behavioral: Positive for sleep disturbance. All other systems reviewed and are negative. Objective: Physical Exam Constitutional: Appearance: Normal appearance. HENT: Head: Normocephalic and atraumatic. Mouth/Throat: Comments: Class 3 airway Pulmonary: Effort: Pulmonary effort is normal. No respiratory distress. Neurological: Mental Status: He is alert and oriented to person, place, and time. Psychiatric: Mood and Affect: Mood normal. Behavior: Behavior normal. Thought Content: Thought content normal. Judgment: Judgment normal. Ht 177.8 cm (70 ) Wt 83 kg (183 lb) BMI 26.26 kg/m?? CPAP Report 90/90 days of use Greater than 4-hour use 97% Setting 818 95th percentile pressure 16.6 AHI 1.9 The patient continues to use and benefit from CPAP therapy. ASSESSMENT/PLAN Diagnoses and all orders for this visit: 1. ROXANNE (obstructive sleep apnea) (Primary) - PAP Therapy Refill supplies x 1 year. Return to clinic 1 year or sooner if symptoms warrant. Signed by Saira Benavidez APRN January 14, 2025 CC: Canelo Madrigal MD No ref. provider found documented in this encounter Plan of Treatment Upcoming Encounters Date Type Department Care Team (Late st Contact Info) Description 05/14/2025 8:45 AM EDT Office Visit [facility] [address] [phone] Collins Ambrosio MD [address] [id number] 05/21/2025 8:45 AM EDT Office Visit [facility] [address] [place] [address] Canelo Madrigal MD [address] [place], [place] [id number] 11/26/2025 9:00 AM EDT Office Visit [facility] [address] [place] [address] Canelo Madrigal MD [address] [place], [place] [id number] 01/13/2026 8:00 AM EST Telemedicine [facility] [address] [place] [phone] Saira Benavidez APRN [address] [place] [address] documented as of this encounter Visit Diagnoses Diagnosis ROXANNE (obstructive sleep apnea)- Primary Obstructive sleep apnea (adult) (pediatric) documented in this encounter Care Teams Joint Terminal Attack Controller Relationship Specialty Start Date End Date Canelo Madrigal MD [address] [place] [address] PCP - General Family Medicine 05/06/20 documented as of this encounter
--- OUTSIDE RECORDS SUMMARY | 2025-02-08 11:55 | XMS_ITS | Continuity of Care Document ---
Author Organization [facility] MICAH Koehler [facility] Address [address] [email or web address] [address] Care Team Providers Care Information [employer] Name Role Phone QUINTIN RAPP Coil Winder Rep[employer] YANG HERNANDEZ Primary Care Provider Assessment No assessment recorded. Plan of Treatment Reminders Order Date Submit Date Provider Last Modified By Organization Details Last Modified Time Details Appointments MOHS FOLLOWUP 2025 01:30P M DR LIAM CISNEROS Not available Not available Not available DERM ESTABLISH ED 2025 10:40A M NAYELY RAPP PA-C Not available Not available Not available Lab surgical pathology study 2024 [facility], [address] [place] [address], [phone], 12/11/2024 12:16:28 Referral None recorded. Procedures None recorded. Surgeries None recorded. Imaging None recorded. Medication Orders hydrocort isone 2.5 % topical ointment 2024 025 [facility], [address], [address], 12/10/2024 12:36:18 fluoroura cil 5 % topical cream 2024 025 [facility], [address], [address], 12/10/2024 12:36:18 Patient TargetsNo targets recorded. Patient InstructionsNo instructions recorded. Reason for Referral None Reported. 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 AJCC: T1, Nx, Mx SOURC E OF SPECI MEN: SKIN, L VERTE X SCALP CLINI KHOI INFOR MATIO N: R/O: SCC. Gross Descr iptio n: The speci men consi sted of multi ple (x2) mathis fragm ents which measu red 11 x 8 x 2 [address] gate. Bisec shania both piece s. All tissu e submi tted in one casse tte. Micro scopi c Descr iptio n: Irreg ular islan ds and nests of cytol ogica lly atypi khoi kerat inizi ng epith elial cells infil trate the dermi s. MARISSA STYLES MD An d Out Date: 12/11 12:16 1 Not Available [facility] [place], [address], 12/11/2024 12:16:27 Result Notes None recorded. Procedures Surgical History Date Name Laterality Status Provider Name and Address Organization Details Recorded Time 5 Mohs 1 Lesion completed QUE AU , [address] [place], [address], [facility] 01/21/2025 20:26:45 5 Mohs Repair: Secondary Intent completed Leslie Nguyen [facility] 01/20/2025 15:39:14 5 DAK - Cryo AK completed Valerio [facility] 12/10/2024 11:10:14 5 [facility] 11:10:05 5 DAK - Cryo AK completed [facility] 06/09/2024 11:06:25 5 Destruction BN Lesions completed [facility] 06/09/2024 11:06:22 4 DAK - Cryo AK completed [facility] 12/10/2023 10:58:03 4 Blade Biopsy w/ ED&C completed QUINTIN RAPP, KEREN [address] [place], [address], [facility] 12/10/2023 12:43:28 4 Destruction BN Lesions completed [facility] 12/10/2023 11:01:35 4 DAK - Cryo AK completed Brennon Sin [facility] 06/11/2023 11:00:15 cataract surgery completed Dinah Casper [facility] 06/11/2023 10:42:06 placement of stent in pulmonary artery completed Valerio Couch [facility] 06/09/2024 10:37:51 Imaging Results None recorded. Procedure Notes None recorded. Medical Equipment None Reported. Allergies Allergen ID Allergen Name Allergen Category Reaction Reaction Severity Criticality Documentation Date Start Date Code Code System Note Provider Name and Address Organization Details Recorded Time 542205 Bactrim medicatio n Not available Not available Not available 06/11/2023 68644 9 [facility] 10:41:33 345126 Biaxin medicatio n Not available Not available Not available 06/11/202332563 9 RxNorm Dinah flro [facility] 10:41:40 571241 clarithro mycin medicatio n nausea Not available [facility] 12/25/2024201512 RxNorm Not Available sil - External Data Service - prod 16:19:02 997986 sulfameth oxazole / trimethop rim medicatio n other Not available Not available 12/25/20242023 60183 RxNorm Not Available sil - External Data Service - prod 16:19:02 943493 dulagluti de medicatio n Not available Not available Not available 12/25/20242022 21716 91 RxNorm unrec ogniz ed react ion (text : GI Intol eranc e, code: 59088 [id number]) (from exter nal sour e) Not Available sil - External Data Service - prod 16:19:02 Medications Name Sig Start Date Stop Date Status Note LastModified by Organization Details LastModified Time Toprol XL 25 mg tablet,ext ended release active Medicatio n Descripti on: metoprolo l succinate ; Route:ora l; refills:0 Not Available Not Available Not Available Multiple Vitamin capsule active Medicatio n Descripti on: multivita min; Route:ora l; refills:3 Not Available Not Available Not Available nitroglyce rin 0.3 mg sublingual tablet As needed active Frequency : prn;Medic ation Descripti on: nitroglyc katerin; Route:sub lingual; refills:0 Not Available Not Available Not Available Synthroid 125 mcg tablet active Medicatio n Descripti on: levothyro xine; Route:ora l; refills:0 Not Available Not Available Not Available fluorourac il 5 % topical cream APPLY A SUFFICIEN T AMOUNT TO COVER THE LESIONS IN THE AFFECTED AREA(S) BY TOPICAL ROUTE 2 TIMES PER DAY FOR 2 WEEKS 2024 active Not Available Not Available Not Avai lable Lantus U-100 Insulin 100 unit/mL subcutaneo us solution active Medicatio n Descripti on: insulin glargine; Route:sub cutaneous ; refills:0 Not Available Not Available Not Available Plavix 75 mg tablet active Medicatio n Descripti on: clopidogr el; Route:ora l; refills:0 Not Available Not Available Not Available simvastati n 20 mg tablet active Medicatio n Descripti on: simvastat in; Route:ora l; refills:0 Not Available Not Available Not Available Astelin 137 mcg (0.1 %) nasal spray Two times a day 2012 active Duration: 30 days;Inst ructions: 2 sprays in each nostril BID;Frequ ency: bid;Medic ation Descripti on: azelastin e nasal; Dosage:2 sprays; Route:yousif al; refills:6 ; Quantity: 1 spray Not Available Not Available Not Available Novolog U-100 Insulin aspart 100 unit/mL subcutaneo us solution Three times a day active Frequency : tid;Medic ation Descripti on: insulin aspart; Route:sub cutaneous ; refills:0 Not Available Not Available Not Available Viagra 100 mg tablet Daily active Duration: 10 days;Freq uency: daily;Alt Frequency : prn;Medic ation Descripti on: sildenafi l; Dosage:1/ 2-1; Route:ora l; refills:5 ; Quantity: 10 tablet Not Available Not Available Not Available hydrocorti sone 2.5 % topical ointment APPLY A THIN LAYER TO THE AFFECTED AREA(S) BY TOPICAL ROUTE 2 TIMES PER DAY FOR 7-14 DAYS AFTER 5-FU CREAM TREATMENT 2024 active Not Available Not Available Not Avai lable [place] 5 mg-325 mg tablet active Medicatio n Descripti on: acetamino phen-hydr ocodone; Route:ora l; refills:0 Not Available Not Available Not Available fluticason e propionate 50 mcg/actuat ion nasal spray,susp ension Two times a day 2012 active Instructi ons: 2 sprays each nostril BID, angling the tip of the applicato rtowards the top of the ear on the same side.;Darrel quency: bid;Medic ation Descripti on: fluticaso ne nasal; Dosage:2 sprays; Route:yousif al; refills:1 1; Quantity: 1 spray Not Available Not Available Not Available Vitamin C active Not Available Not Izabela ilable Not Available Co Q-10 active Not Available Not Avail able Not Available Flonase active Not Available Not Avail able Not Available Coreg active Not Available Not Availa ble Not Available omeprazole active Not Available Not Av ailable Not Available Lasix active Not Available Not Availa ble Not Available iron active Not Available Not Availa ble Not Available albuterol sulfate active Not Available Not Available Not Available Plavix active Not Available Not Availa ble Not Available Synthroid active Not Available Not Izabela ilable Not Available isosorbide active Not Available Not Av ailable Not Available Vitamin D3 active Not Available Not Av ailable Not Available metformin active Not Available Not Izabela ilable Not Available pantoprazo le active Not Available Not Available Not Available Crestor active Not Available Not Avail able Not Available Humalog KwikPen Insulin active Not Available Not Available Not Available krill oil active Not Available Not Izabela ilable Not Available aspirin (bulk) 100 % powder Daily active Frequency : daily;Med ication Descripti on: aspirin; Route:com pounding; refills:0 Not Available Not Available Not Available Jardiance active Not Available Not Izabela ilable Not Available Trulicity active Not Available Not Izabela ilable Not Available Entresto active Not Available Not Avai lable Not Available Astepro Allergy active Not Available Not Available Not Available Vitals None Recorded Social History Question Answer Notes LastModified by Organizat ion Details LastModified Time Tobacco Smoking Status Never Smoker Dinah Casper [facility] [place], [facility] 06/11/2023 10:41:53 Sunscreen Use? Yes [email or web address] Informatio n not available 12/10/2023 Tanning Bed Use No [email or web address] Informati on not available 12/10/2023 Are You Or Trying To Become ? No [email or web address] Information not available 12/10/2023 Are You On Control? No Information not available 12/10/2023 Are You ? No [email or web address] Information not available 12/10/2023 What Was The Date Of Your Most Recent Tobacco Screening? 12/10/2024 [email or web address] Information not available 12/10/2024 Has Tobacco Cessation Counseling Been Provided? No [email or web address] Information not available 12/10/2023 Sex: Male Functional Status Question Answer Note LastModified by Organizat ion Details LastModified Time Do you use any illicit or recreational drugs? No [email or web address] Information not available 12/10/2023 Do you or have you ever used any other forms of tobacco or nicotine? No [email or web address] Information not available 12/10/2023 What is your level of alcohol consumption? None [email or web address] Information not available 12/10/2023 Mental Status None recorded. Family History Nothing Reported. Medical History Condition Response Skin Cancer Y Squamous Cell Carcinoma Y Past Encounters Encounter ID Performer Location Encounter Start Date Encounter Closed Date Diagnosis/Indication Diagnosis SNOMED-CT Code Diagnosis ICD10 Code Diagnosis IMO Codes Diagnosis Note [id number] KEREN LENNON [address] [place] [address] 12/10/2024 10:29:03 12/10/2024 11:25:58 Multiple benign melanocytic nevi 196601161 D22.5 L81.4 D18.01 L82.1 The benign nature [...] noted. History of malignant neoplasm of skin excluding melanoma [id number] Z85.040 [id number] The scar is clear with no evidence of recurrence . Cont. to monitor for any changes. Neoplasm o f uncertain behavior of skin 78394388 D48.5 The etiology of lesion(s) discussed. Biopsy recommende d. Will call pt with results or post to portal if benign. Actinic keratosis L57.0 16376 The nature of the diagnosis was explained. Pre-cancer ous.Will treat with LN2.F/u if treated lesions persist.Pt to do 5FU on top of head and left anterior hairline before 6 month f/u.Rx Efudex has been shown to decrease the amount of AKs and prevent SCC developmen t.Rx Efudex (5-fluorou racil) 5% cream prescribed . Apply to areas of pre-cancer s BID for 2 weeks. SE reviewed.R x Hydrocorti sone 2.5% topical ointment prescribed . Apply to the AAs for BID x 2-3 days after completing 5-FU cream treatment. SE reviewed. LT use discussed. Avoid eye area and allow to absorb for at least 1 hour before bedtime. Expect redness, crusting, itching, and burning.Th erapy may be stopped when crusting is prominent or at any time if symptoms are intolerabl e. Call the office with any concerns about symptoms as we can prescribe medication to calm the reaction if needed.Osvaldo id sun exposure during your treatment. Can cause or bring out cold sores. Call if these arise. It will take several weeks for your skin to heal once the therapy has ended. Pigmentary change may occur. Health Concerns Section Related Observation LastModified by Organization Detai ls LastModified Time None Recorded Concern Status LastModified by Organization Details LastModified Time None Recorded Payers Encounter Date Sequence Insurance Name Policy Number Policy Galeana Covered Member ID Galeana Member ID Guarantor Name 12/10/2024 1 [facility] (MEDICARE REPLACEMENT/A DVANTAGE - PPO) [id number] Chaim Hummel [id number] Chaim Hummel Notes Date Note Type Note Provider Name and Address Organization Details Recorded Time 12/10/2024 text/html ROS as noted in the HPI waist up6 monthhx: SCC- R Scalp, Anterior Neck, R Postauricular Neck, L Scalp, BCC- L Upper Backspot of concern: R hinduism and scalp KEREN LENNON [address] [place], [address], [place] [facility] 12/10/2024 12:42:25
--- OUTSIDE RECORDS SUMMARY | 2025-02-08 11:55 | XMS_ITS | Encounter Summary ---
Author Organization [facility] Address [address] [place] [address] Care Team Providers Care Bioprocessing Manufacturing Technician Name Role Phone Canelo Madrigal MD Primary Care Provider [phone] Reason for Visit * Reason Comments Med Refill Encounter Details Date Type Department Care Team (Late st Contact Info) Description 01/13/2025 Refill [facility] [address] [place] [address] Canelo Madrigal MD [address] [place] [address] Social History Tobacco Use Types Packs/Day Years [...] GED or equivalent No 03/07/2024 Preferred Language Mohawk 03/07/2024 PHQ-2 Answer Date Recorded Patient Health Questionnaire-2 Score 0 11/20/2024 Sex and Gender Information Value Date Recorded Sex Assigned at Male 05/09/2024 7:29 AM EDT Legal Sex Male 10:36 AM EDT Gender Identity Not on file Sexual Orientation Straight 05/09/2024 7: 29 AM EDT documented as of this encounter Plan of Treatment Upcoming Encounters Date Type Department Care Team (Late st Contact Info) Description 05/14/2025 8:45 AM EDT Office Visit [facility] ENDOCR[facility] [address] [phone] Collins Ambrosio MD [address] [address] 05/21/2025 8:45 AM EDT Office Visit [facility] [address] [place] [address] Canelo Madrigal MD [address] [place] [address] 11/26/2025 9:00 AM EDT Office Visit [facility] [address] [place] [address] Canelo Madrigal MD [address] [place] [address] 01/13/2026 8:00 AM EST Telemedicine [facility] [address] [place] [phone] Saira Benavidez, SHOW OPERATIONS SUPERVISOR [address] [place] [address] documented as of this encounter Visit Diagnoses Not on filedocumented in this encounter Care Teams Bioprocessing Manufacturing Technician Relationship Specialty Start Date End Date Canelo Madrigal MD [address] [place] [address] PCP - General Family Medicine 05/06/20 documented as of this encounter
--- OUTSIDE RECORDS SUMMARY | 2025-02-08 11:55 | XMS_ITS | Encounter Summary ---
Author Organization [facility] Address [address] [place] [address] Care Team Providers Care Metal Template Maker Name Role Phone Canelo Madrigal MD Primary Care Provider [phone] Encounter Details Date Type Department Care Team (Late st Contact Info) Description 11/21/2024 Results Follow-Up [facility] [address] [facility] [address] Canelo Madrigal MD [address] [facility] [place] [address] Social History Tobacco Use Types [...] GED or equivalent No 03/07/2024 Preferred Language Divehi 03/07/2024 PHQ-2 Answer Date Recorded Patient Health [...] Description 05/14/2025 8:45 AM EDT Office Visit [facility] ENDOCRINOLOGY [address] [phone] Collins Ambrosio MD [address] [address] 05/21/2025 8:45 AM EDT Office Visit [facility] [address] [place] [address] Canelo Madrigal MD [address] [place] [address] 11/26/2025 9:00 AM EDT Office Visit [facility] [address] [place] [address] Canelo Madrigal MD [address] [place] [address] 01/13/2026 8:00 AM EST Telemedicine [facility] [address] [place] [phone] Saira Benavidez, RESTAURANT LEAD [address] [place] [address] documented as of this encounter Visit Diagnoses Not on filedocumented in this encounter Care Teams Metal Template Maker Relationship Specialty Start Date End Date Canelo Madrigal MD [address] [place] [address] PCP - General Family Medicine 05/06/20 documented as of this encounter
--- OUTSIDE RECORDS SUMMARY | 2025-02-08 11:55 | XMS_ITS | Encounter Summary ---
Author Organization [facility] Address [address] [place] [address] Care Team Providers Care Combination Welder Apprentice Name Role Phone Canelo Madrigal MD Primary Care Provider [phone] Reason for Visit * Reason Comments Med Refill Encounter Details Date Type Department Care Team (Late st Contact Info) Description 12/28/2024 Refill [facility] [address] [place] [address] Canelo Madrigal MD [address] [place] [address] Social History Tobacco Use Types [...] GED or equivalent No 03/07/2024 Preferred Language Azeri 03/07/2024 PHQ-2 Answer Date Recorded Patient Health [...] Description 05/14/2025 8:45 AM EDT Office Visit [facility] ENDOCR[facility]OLOG[facility] [address] [phone] Collins Ambrosio MD [address] [address] 05/21/2025 8:45 AM EDT Office Visit [facility] [address] [place] [address] Canelo Madrigal MD [address] [place] [address] 11/26/2025 9:00 AM EDT Office Visit [facility] [address] [place] [address] Canelo Madrigal MD [address] [place] [address] 01/13/2026 8:00 AM EST Telemedicine [facility] [address] [place] [phone] Saira Benavidez, BOTTOM SANDER [address] [place] [address] documented as of this encounter Visit Diagnoses Not on filedocumented in this encounter Care Teams Combination Welder Apprentice Relationship Specialty Start Date End Date Canelo Madrigal MD [address] [place] [address] PCP - General Family Medicine 05/06/20 documented as of this encounter
--- OUTSIDE RECORDS SUMMARY | 2025-02-08 11:55 | XMS_ITS | Encounter Summary ---
Author Organization [facility] Address [address] [place] [address] Care Team Providers Care Stage Set Designer Name Role Phone Canelo Madrigal MD Primary Care Provider Reason for Visit * Reason Comments Med Refill Encounter Details Date Type Department Care Team (Late st Contact Info) Description 01/13/2025 Refill [facility] ENDOCR[facility] [address] [phone] Collins Ambrosio MD [address] [address] Uncontrolled type 2 diabetes mellitus with hyperglycemia Social History Tobacco Use Types Packs/Day Years [...] GED or equivalent No 03/07/2024 Preferred Language Upper Sorbian 03/07/2024 PHQ-2 Answer Date Recorded Patient Health Questionnaire-2 Score 0 11/20/2024 Sex and Gender Information Value Date Recorded Sex Assigned at Male 05/09/2024 7:29 AM EDT Legal Sex Male 10:36 AM EDT Gender Identity Not on file Sexual Orientation Straight 05/09/2024 7: 29 AM EDT documented as of this encounter Miscellaneous Notes * Telephone Encounter - Fiona Berger MA - 01/14/2025 8:58 AM EST Rx Refill Note Requested Prescriptions Pending Prescriptions Disp Refills Jardiance 25 MG tablet tablet [Pharmacy Med Name: JARDIANCE TABS 25MG] 90 tablet 1 Sig: TAKE 1 TABLET DAILY Lantus SoloStar 100 UNIT/ML injection pen [Pharmacy Med Name: LANTUS SOLOSTAR PEN 3ML 5'S 100U/ML] 45 mL 1 Sig: INJECT 48 UNITS INTO THE APPROPRIATE AREA UNDER THE SKIN DAILY DIRECTED Last office visit with prescribing clinician: 11/17/2024 Last telemedicine visit with prescribing clinician: Visit date not found Next office visit with prescribing clinician: 05/14/2025 Would you like a call back once the refill request has been completed: [] Yes [] No If the office needs to give you a call back, can they leave a voicemail: [] Yes [] No Fiona Berger MA 01/14/25, 08:58 EST documented in this encounter Plan of Treatment Upcoming Encounters Date Type Department Care Team (Late st Contact Info) Description 05/14/2025 8:45 AM EDT Office Visit [facility] END[facility]CR[facility] [address] [phone] Collins Ambrosio MD [address] [address] 05/21/2025 8:45 AM EDT Office Visit [facility] [address] [place] [address] Canelo Madrigal MD [address] [place] [address] 11/26/2025 9:00 AM EDT Office Visit [facility] [address] [place] [address] Canelo Madrigal MD [address] [place], [place] [address] 01/13/2026 8:00 AM EST Telemedicine [facility] SLEEP [facility] [address] [place] [address] Saira Benavidez, CLOSING COORDINATOR [address] [place] [address] documented as of this encounter Visit Diagnoses Diagnosis Uncontrolled type 2 diabetes mellitus with hyperglycemia documented in this encounter Care Teams Stage Set Designer Relationship Specialty Start Date End Date Canelo Madrigal MD [address] [place] [address] PCP - General Family Medicine 05/06/20 documented as of this encounter
[2025-02-08 11:56] VITALS: BP 146/72; PULSE 73; RESP 18; TEMP 36.8; O2SAT 96; BMI 25.8
--- OUTSIDE RECORDS SUMMARY | 2025-02-08 11:56 | XMS_ITS | Encounter Summary ---
Author Organization [facility] Address [address] [place] [address] Care Team Providers Care Assessment Analyst Name Role Phone Canelo Madrigal MD Primary Care Provider [phone] Encounter Details Date Type Department Care Team (Late st Contact Info) Description 05/23/2024 Results Follow-Up [facility] 210 [facility] [place] [address] Canelo Madrigal MD [address] [facility] [place] [address] Social History Tobacco Use Types [...] GED or equivalent No 03/07/2024 Preferred Language Slovak 03/07/2024 PHQ-2 Answer Date Recorded Retired PHQ-9: Brief Depression Severity Measure Score 0 11/19/2023 Sex and Gender Information Value Date Recorded [...] Visit [facility] END[facility] [address] [phone] Collins Ambrosio MD [address] [address] 05/21/2025 8:45 AM EDT Office Visit [facility] [address] [place] [address] Canelo Madrigal MD [address] [place] [address] 11/26/2025 9:00 AM EDT Office Visit [facility] [address] [place] [address] Canelo Madrigal MD [address] [place] [address] 01/13/2026 8:00 AM EST Telemedicine [facility]EP [facility] [address] [place] [phone] Saira Benavidez, GRINDING OPERATOR [address] [place] [address] documented as of this encounter Visit Diagnoses Not on filedocumented in this encounter Care Teams Assessment Analyst Relationship Specialty Start Date End Date Canelo Madrigal MD [address] [place] [address] PCP - General Family Medicine 05/06/20 documented as of this encounter
--- OUTSIDE RECORDS SUMMARY | 2025-02-08 11:56 | XMS_ITS | Encounter Summary ---
Author Organization [facility] Address [address] [place] [address] Care Team Providers Care Predatory Hunter Name Role Phone Canelo Madrigal MD Primary Care Provider [phone] Reason for Visit * Reason Onset Date Comments DOCUMENTATION FOR SUPPLIES 11/13/2024 Encounter Details Date Type Department Care Team (Late st Contact Info) Description 11/13/2024 Telephone [facility] END[facility]CR[facility]OLOG[facility] [address] [phone] Collins Ambrosio MD [address] [address] DOCUMENTATION FOR SUPPLIES Social History Tobacco Use Types Packs/Day Years [...] GED or equivalent No 03/07/2024 Preferred Language Mozambican 03/07/2024 PHQ-2 Answer Date Recorded Patient Health Questionnaire-2 Score 0 11/20/2024 Sex and Gender Information Value Date Recorded Sex Assigned at Male 05/09/2024 7:29 AM EDT Legal Sex Male 10:36 AM EDT Gender Identity Not on file Sexual Orientation Straight 05/09/2024 7: 29 AM EDT documented as of this encounter Miscellaneous Notes * Telephone Encounter - Mackenzie Sanchez MA - 11/14/2024 1:31 PM EDT PATIENT WAS REACHED AND WILL BE IN SUNDAY TO BE SEEN BY DR. AMBROSIO. * Telephone Encounter - Rachana Sheldon RegSched Rep - 11/13/2024 3:59 PM EDT Caller: Chaim Hummel Relationship: Self Best call back number: [phone] What is the best time to reach you: ANYTIME Who are you requesting to speak with (clinical staff, provider, specific staff member): CLINICAL Do you know the name of the person who called: PATIENT What was the call regarding: PT SAID THAT HE TRIED TO ORDER HIS [employer] 3 SUPPLIES BUT [employer] SAID THEY NEED DOCUMENTATION SHOWING THAT PT HAS BEEN SEEING THE DR EVERY 60 DAYS. CAN THAT BE SENT TO THEM? PLEASE ADVISE PT. HE WILL BE OUT IN 25 DAYS. documented in this encounter Plan of Treatment Upcoming Encounters Date Type Department Care Team (Late st Contact Info) Description 05/14/2025 8:45 AM EDT Office Visit [facility] END[facility]CR[facility] [address] [phone] Collins Ambrosio MD [facility] [address] 05/21/2025 8:45 AM EDT Office Visit [facility] 210 [facility] [place] [place] [phone] Canelo Madrigal MD [address] [place] [address] 11/26/2025 9:00 AM EDT Office Visit [facility] [address] [place] [phone] Canelo Madrigal MD [address] [employer] [place], [place] [phone] 01/13/2026 8:00 AM EST [facility] SLEEP MEDICINE [address] [place] [address] Saira Benavidez, SHIPPING AND RECEIVING COORDINATOR [address] [place] [address] documented as of this encounter Visit Diagnoses Not on filedocumented in this encounter Care Teams Predatory Hunter Relationship Specialty Start Date End Date Canelo Madrigal MD [address] [place] [address] PCP - General Family Medicine 05/06/20 documented as of this encounter
--- OUTSIDE RECORDS SUMMARY | 2025-02-08 11:56 | XMS_ITS | Data Portability ---
Author Organization [facility] Ronan lynn CKS VALE CLOSED Address [address] [place] [address] Care Team Providers Care Lion Trainer Name Role Phone QUINTIN RAPP Fuel Island Attendant YANG HERNANDEZ Primary Care Provider Assessment Encounter Date Assessment Date Assessment LastModified by Organization Details LastModified Time 01/20/2025 01/20/2025 POST-OPERATIVE 1. Team members confirm that all sharps are accounted for and safely contained prior to dressing application. [facility] El[facility] 2. Vitals signs are documented and acceptable for discharge. Elena Salgado RN 3. Photos have been taken and uploaded into the chart. Leslie Nguyen, NANCY 4. Written post-operative instructions, prescriptions, and overnight dressing supplies are provided. [facility] Elin[facility] Dressing Appearance: dry, clean and intact Patient's Pain Level: 0 LOC: Alert DC Instruction sheets received by patient: YES Overnight supplies given: YES Patient discharged with: Other: Other Notes: Discharge time: 1:38 PM [email or web address] Not available 01/20/2025 15:39:57 Plan of Treatment Reminders Order Date Submit Date Provider Last Modified By Organization Details Last Modified Time Details Appointments MOHS FOLLOWUP 2025 01:30P M DR LIAM CISNEROS Not available Not available Not available DERM ESTABLISH ED 2025 10:40A M NAYELY RAPP PA-C Not available Not available Not available Lab surgical pathology study 2024 025 [facility], [address] [place] [address], [phone], 12/11/2024 12:16:28 surgical pathology study 2023 024 SIL [facility], [address] [place] [address], [phone], 12/11/2023 10:29:40 Referral None recorded. Procedures None recorded. Surgeries None recorded. Imaging None recorded. Medication Orders hydrocort isone 2.5 % topical ointment 2024 [facility], [address] [place] [address], [id number], 12/10/2024 12:36:18 fluoroura cil 5 % topical cream 2024 025 [facility], [facility] [address], [address], 12/10/2024 12:36:18 Patient TargetsNo targets recorded. Patient InstructionsNo instructions recorded. Reason for Referral None Reported. Results Created Date Observation Date Name Description Value Unit Range Abnormal Flag Note LastModifiedBy Organization Detail LastModifiedTime 12/10/1912/10/2023 SURGI KHOI surgical SEE BELOW [place] topat holog y Repor t NAME: CHAIM [...] Out Date: 12/10 10:29 1 Not Available [facility] [address] [place] [address], [phone], 12/11/2023 10:29:40 12/11/19 25 12/10/2024 SURGI KHOI surgical SEE BELOW abnormal [place] topat holog y Repor t NAME: CHAIM [...] Out Date: 12/11 12:16 1 Not Available [facility] [address] [place] [address], [phone], 12/11/2024 12:16:27 Result Notes None recorded. Procedures Surgical History Date Name Laterality Status Provider Name and Address Organization Details Recorded Time 5 Mohs 1 Lesion completed AMAN PEÑALOZA , [address] [place] [address], [phone], [facility] 01/21/2025 20:26:45 5 Mohs Repair: Secondary Intent completed Leslie Nguyen [facility] 01/20/2025 15:39:14 5 DAK - Cryo AK completed Valerio Couch [facility] 12/10/2024 11:10:14 5 Blade Biopsy completed Valerio Couch [facility] 12/10/2024 11:10:05 5 DAK - Cryo AK completed [facility] 06/09/2024 11:06:25 5 Destruction BN Lesions completed [facility] 06/09/2024 11:06:22 4 DAK - Cryo AK completed [facility] 12/10/2023 10:58:03 4 Blade Biopsy w/ ED&C completed QUINTIN RAPP, PA [address] [place], [address], [facility] 12/10/2023 12:43:28 4 Destruction BN Lesions completed [facility] 12/10/2023 11:01:35 4 DAK - Cryo AK completed Brennon Sin [facility] 06/11/2023 11:00:15 cataract surgery completed Dinah Casper [facility] 06/11/2023 10:42:06 placement of stent in pulmonary artery completed Valerio Harris [facility] 06/09/2024 10:37:51 Imaging Results None recorded. Procedure Notes None recorded. Medical Equipment None Reported. Allergies Allergen ID Allergen Name Allergen Category Reaction Reaction Severity Criticality Documentation Date Start Date Code Code System Note Provider Name and Address Organization Details Recorded Time 272223 Bactrim medicatio n Not available Not available Not available 06/11/2023 59302 9 [facility] 10:[facility]33 240476 Biaxin medicatio n Not available Not available Not available 06/11/202338984 9 RxNorm Dinah flor [facility] 4 10:41:40 872371 clarithro mycin medicatio n nausea Not available high 12/25/2024201512 RxNorm Not Available sil - External Data Service - prod 16:19:02 463061 sulfameth oxazole / trimethop rim medicatio n other Not available Not available 12/25/20242023 16651 RxNorm Not Available sil - External Data Service - prod 16:19:02 969167 dulagluti de medicatio n Not available Not available Not available 12/25/20242022 49224 91 RxNorm unrec ogniz ed react ion (text : GI Intol eranc e, code: 81223 [id number]) (from exter nal sour e) Not Available [place] - External Data Service - prod 16:19:02 [...] Not Available Not Available Not Avai lable [place] 5 mg-325 mg tablet active Medicatio n [...] Not Available Not Available Not Available Vitals Date Recorded Body temperature Heart rate Body temperature Heart rate Systolic And Diastolic Systolic And Diastolic Provider Name and Address Organization Details Last Updated DateTime 5 97.1 [degF] 75 /min 96.7 [degF] 73 /min 133/77 mm[Hg] 135/76 mm[Hg] Elena ireland [facility] 5 13:38:16 Social History Question Answer Notes LastModified by Organizat ion Details LastModified Time Tobacco Smoking Status Never Smoker Dinah flor [facility] 06/11/2023 10:41:53 Sunscreen Use? Yes Informatio n not available 12/10/2023 Tanning Bed Use No [email or web address] Informati on not available 12/10/2023 Are You Or Trying To Become ? No Information not available 12/10/2023 Are You On Control? No Information not available 12/10/2023 Are You ? No [email or web address] Information not available 12/10/2023 What Was The Date Of Your Most Recent Tobacco Screening? 12/10/2024 [email or web address] Information not available 12/10/2024 Has Tobacco Cessation Counseling Been Provided? No [email or web address] Information not available 12/10/2023 Sex: Male Functional Status Question Answer Note LastModified by Organizat ion Details LastModified Time Do you use any illicit or recreational drugs? No [email or web address] Information not available 12/10/2023 Do you or have you ever used any other forms of tobacco or nicotine? No [email or web address] Information not available 12/10/2023 What is your level of alcohol consumption? None [email or web address] Information not available 12/10/2023 Mental Status None recorded. Family History Nothing Reported. Medical History Condition Response Skin Cancer Y Squamous Cell Carcinoma Y Past Encounters Encounter ID Performer Location Encounter Start Date Encounter Closed Date Diagnosis/Indication Diagnosis SNOMED-CT Code Diagnosis ICD10 Code Diagnosis IMO Codes Diagnosis Note [id number] KEREN LENNON [address] [address] 06/11/2023 10:33:29 06/11/2023 11:27:49 Multiple benign melanocytic nevi 603503320 D22.5 L81.4 L82.1 D18.01 The benign nature [...] noted. History of malignant neoplasm of skin 748186048 Z85.828 L90.5 Scar(s) clear with no evidence [...] discuss doing treatment at pts next visit. [id number] KEREN LENNON [address] [address] 12/10/2023 10:18:31 12/10/2023 11:07:29 Multiple benign melanocytic nevi 308193759 D22.5 L81.4 D18.01 L82.1 The benign nature [...] noted. History of malignant neoplasm of skin 819571245 Z85.828 Scar(s) clear with no evidence recurrence . Continue to monitor for any changes. Neoplasm o f uncertain behavior of skin 05441046 D48.5 The etiology of lesion(s) discussed. Biopsy [...] pts next visit. Inflamed s eborrheic keratosis 573421133 L82.0 R58 Benign appearing lesions.Si nce bothersome and have bled previously , will treat with LN2.Lesion s treated today may persist.F/ u if treated lesions persist. [id number] KEREN LENNON [address] [address] 06/09/2024 10:19:08 06/09/2024 11:13:12 Multiple benign melanocytic nevi 271181951 D22.5 L81.4 D18.01 L82.1 The benign nature [...] noted. History of malignant neoplasm of skin 577565198 Z85.828 36231 Scar(s) clear with no evidence recurrence . Continue to monitor for any changes. Actinic keratosis L57.0 55700 The nature of the diagnosis was explained. Pre-cancer ous.Will treat with LN2. Will consider 5-FU fall 2024. Verruca vulgaris 0075946 3 B07.8 R20.8 401567 The nature of the diagnosis was discussed. Warts are viral. Try not to pick.Will treat with LN2 today.Lesi ons treated today may persist.F/ u if treated lesion persist. [id number] KEREN LENNON DAK BARD [address] [place] [address] 12/10/2024 10:29:03 12/10/2024 11:25:58 Multiple benign melanocytic nevi 385064735 D22.5 L81.4 D18.01 L82.1 The benign nature [...] of malignant neoplasm of skin excluding melanoma 165211082 Z85.586 9105025 The scar is clear with no evidence of recurrence . Cont. to monitor for any changes. Neoplasm o f uncertain behavior of skin 62305027 D48.5 The etiology of lesion(s) discussed. Biopsy recommende d. Will call pt with results or post to portal if benign. Actinic keratosis L57.0 26986 The nature of the diagnosis was explained. [...] therapy has ended. Pigmentary change may occur. 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 C44.42 163215 Health Concerns Section Related Observation LastModified by Organization Detai ls LastModified Time None Recorded Concern Status LastModified by Organization Details LastModified Time None Recorded Advance Directives Directive None Recorded Payers Insurance Date Sequence Insurance Name Policy Number Policy Galeana Covered Member ID Galeana Member ID Guarantor Name 01/28/2025 1 [facility] (MEDICARE REPLACEMENT/A DVANTAGE - PPO) [id number] Chaim Hummel [id number] Chaim Hummel Notes Date Note Type Note Provider Name and Address Organization Details Recorded Time 06/11/2023 text/html ROS as noted in the [facility] waist up6 month exams - multiple sitesReports: no concerns KEREN LENNON [address] [place], [address], [facility] 06/11/2023 12:18:22 12/10/2023 text/html ROS as noted in the [facility] waist up6 month exams - multiple sitesReports: I have a couple of areas of concern.Location: R ArmDuration: 1 monthReports: It feels rough and patchy, kind of like a wart.Location: ScalpDuration: 6 monthsReports: Rough spots I have.Location: L EarDuration: Pt unsureReports: A bumpLocation: R EarDuration: Pt unsureReports: A bump KEREN LENNON [address] [place], [address], [facility] 12/10/2023 12:44:04 06/09/2024 text/html ROS as noted in the HPI waist up 6 month hx: SCC- R Scalp, Anterior Neck, R Postaurciular Neck, L Scalp, BCC- L Upper Back report: i have a spot on my scalp. wart location: R handduration: 2-3 weekstx tried: nonereports: none KEREN LENNON [address] [place], [address], [facility] 06/09/2024 12:16:23 12/10/2024 text/html ROS as noted in the HPI waist up6 monthhx: SCC- R Scalp, Anterior Neck, R Postauricular Neck, L Scalp, BCC- L Upper Backspot of concern: R moravian and scalp KEREN LENNON [address] [place], [address], [facility] 12/10/2024 12:42:25 01/20/2025 text/html ROS as noted in the HPI Patient presents for Mohs to treat a SCC on the Left Vertex Scalp.Admit time 10:14 AMPREOP CHECKLIST1. Pacemaker or Defibrillator? YES2. Artificial heart valve or joints? YES More than 2 years ago3. Pt currently on antibiotic? NO - Notes:4. History of bleeding, infection or complications with other surgeries?YES5. Med history, medications and allergies reviewed? YES6. Has pt taken Immunosuppressive meds (imuran, cyclosporine,mycopheno late, chemo etc.?, or steroids in last 2 weeks? NO7. Prearranged Closure? NO - Notes:8. Have a ride home? YES - Notes:PRE PROCEDURE1. Patient Name and confirmed with medical recordST Elinor2. Allergies documented and reviewed.Elena Salgado RN3. Pathology report reviewed with patient.Aman Peñaloza DO4. Surgical consent is confirmed for accuracy and signatures.Cami Bowen, DO5. Surgical site is marked with pen by surgeon, confirmed by patient using a mirror, and all other patient care providers prior to administration of pre-operative medications and local anesthesia.Aman Peñaloza, 6. Pre-operative medication is administered as ordered by surgeon.7. Pre-operative local anesthetic injected.CINDY Aldrich RISK ASSESSMENT1. Confusion/Disorientati on/Impulsivity: NoNo = 0 pointsYes = 4 points2. Symptomatic Depression: NoNo = 0 pointsYes = 2 points3. Altered Elimination: NoNo = 0 pointsYes = 1 points4. Dizziness/Vertigo: NoNo = 0 pointsYes = 1 points5. Male Sex: YesNo = 0 pointsYes = 1 points6. Administered Anti-Epileptics: NoNo = 0 pointsYes = 2 points7. Administered Benzodiazepines: NoNo = 0 pointsYes = 1 points8. Get Up & Go Test: Pushes up, successful in 1 attempt = 1 point Total Points: 2Score > 5 = High Risk AMAN PEÑALOZA, DO [address] [place], [address], [facility] 01/21/2025 20:27:03
--- OUTSIDE RECORDS SUMMARY | 2025-02-08 11:56 | XMS_ITS | Clinical Summary ---
Author Organization [facility] Address [address] [place] [address] Care Team Providers Care Kiln Car Repairer Name Role Phone Canelo Madrigal MD Primary Care Provider Allergies Active Allergy Reactions Criticality Noted Date Comments Clarithromycin Nausea Only Medium 07/07/2015 Sulfamethoxazole-Trimethoprim Unknown - Low Severity 11/12/2023 Dulaglutide GI Intolerance 07/04/2022 Medications aspirin 81 MG EC tablet Take 1 tablet by mouth Daily. Active coenzyme Q10 100 MG capsule Take 1 capsule by mouth Daily. Active vitamin C (ASCORBIC ACID) 250 MG tablet Take 1 tablet by mouth Daily. Active Krill Oil 300 MG capsule Take 1 capsule by mouth Daily. Active VITAMIN D PO Take 2,000 Int'l Units by mouth Daily. Active rosuvastatin (CRESTOR) 40 MG tablet Take 1 tablet by mouth Every Night. 09/04/19 Active ferrous sulfate 325 (65 FE) MG tablet Take 1 tablet by mouth Daily With Breakfast. Active acetaminophen (TYLENOL) 325 MG tablet Take 2 tablets by mouth Every 4 (Four) Hours As Needed for Mild Pain (temperature greater than 101F). 11/25/19 Active isosorbide mononitrate (IMDUR) 60 MG 24 hr tablet Take 1 tablet by mouth Daily. 01/01/20 20 Active furosemide (LASIX) 40 MG tablet Take 0.5 tablets by mouth Daily. 10/07/19 Active carvedilol (COREG) 6.25 MG tablet Take 1 tablet by mouth Every 12 (Twelve) Hours. 180 tablet 3 11/09/20 22 Active sacubitril-valsa rtan (ENTRESTO) 24-26 MG tablet Take 1 tablet by mouth Every 12 (Twelve) Hours. 60 tablet 6 04/21/19 23 Active nitroglycerin (NITROSTAT) 0.4 MG SL tabletIndication s:Coronary artery disease involving hoopa coronary artery of hoopa heart without angina pectoris Place 1 tablet under the tongue Every 5 (Five) Minutes As Needed for Chest Pain. Take no more than 3 doses in 15 minutes. 25 tablet 1 12/13/19 23 Active Accu-Chek Guide test strip USE TO CHECK BLOOD SUGAR FOUR TIMES DAILY DIRECTED 400 each 2 07/19/19 24 Active albuterol sulfate HFA 108 (90 Base) MCG/ACT inhalerIndicatio ns:Mild persistent asthma without complication Inhale 2 puffs Every 4 (Four) Hours As Needed for Wheezing. 1 g 2 09/18/19 24 Active Multiple Vitamins-Mineral s (EYE HEALTH PO) Take by mouth. Activ e clopidogrel (PLAVIX) 75 MG tablet Take 1 tablet by mouth Daily. 30 tablet 11 03/07/19 25 2025 Active levothyroxine (SYNTHROID, LEVOTHROID) 112 MCG tablet TAKE 1 TABLET BY MOUTH ONCE DAILY 90 tablet 3 04/16/19 25 Active metFORMIN ER (GLUCOPHAGE-XR) 500 MG 24 hr tabletIndication s:Uncontrolled type 2 diabetes mellitus with hyperglycemia TAKE 2 TABLETS BY MOUTH TWICE DAILY 360 tablet 3 05/08/19 25 Active Symbicort 160-4.5 MCG/ACT inhaler 05/14/19 25 Active HumaLOG KwikPen 100 UNIT/ML solution pen-injector Inject 10 Units under the skin into the appropriate area as directed 4 (Four) Times a Day Before Meals & at Bedtime. Max daily dose 50u 45 mL 3 05/29/19 25 Active Azelastine HCl 137 MCG/SPRAY solutionIndicati ons:Allergic rhinitis due to pollen USE 2 SPRAYS IN EACH NOSTRIL TWICE A DAY DIRECTED BY PROVIDER 90 mL 3 08/05/19 25 Active pantoprazole (PROTONIX) 40 MG EC tablet TAKE ONE (1) TABLET BY MOUTH ONCE DAILY 90 tablet 1 12/30/19 25 Active fluticasone (FLONASE) 50 MCG/ACT nasal spray USE TWO (2) SPRAYS IN EACH NOSTRIL ONCE A DAY DIRECTED; SHAKE GENTLY 48 g 01/14/20 Active empagliflozin (Jardiance) 25 MG tablet tablet TAKE 1 TABLET DAILY 90 tablet 3 01/15/20 25 Active Insulin Glargine (Lantus SoloStar) 100 UNIT/ML injection penIndications:U ncontrolled type 2 diabetes mellitus with hyperglycemia INJECT 48 UNITS INTO THE APPROPRIATE AREA UNDER THE SKIN DAILY DIRECTED 45 mL 3 01/15/20 25 Active Insulin Glargine (Lantus SoloStar) 100 UNIT/ML injection penIndications:U ncontrolled type 2 diabetes mellitus with hyperglycemia Inject 48 Units under the skin into the appropriate area as directed Daily. 45 mL 3 11/15/19 24 2024 Discontinued empagliflozin (Jardiance) 25 MG tablet tablet Take 1 tablet by mouth Daily. 90 tablet 3 11/15/19 24 2024 Discontinued fluticasone (FLONASE) 50 MCG/ACT nasal spray USE 2 SPRAYS IN EACH NOSTRIL ONCE A DAY DIRECTED; SHAKE GENTLY 48 g 02/28/19 25 2024 Discontinued Active Problems Problem Noted Date Diagnosed Date Right eye blindness of unknown category 11/21/19 Assessment & Plan (11/20/2024 9:39 AM EDT): CAD (coronary artery disease) 03/07/2024 Assessment & Plan (11/20/2024 9:39 AM EDT): {Coronary Artery Disease (OPTIONAL):77088} Assessment & Plan (11/17/2024 9:54 AM EDT): Continue ASA, statin and SGLT-2 inhibitor. He didn't tolerate GLP-1 RA. Assessment & Plan (05/26/2024 11:03 AM EDT): Continue ASA, statin and SGLT-2 inhibitor. He didn't tolerate GLP-1 RA. GERD without esophagitis 03/07/2024 Anemia, chronic disease 03/07/2024 NSTEMI (non-ST elevated myocardial infarction) 0 03/07/2024 Systolic congestive heart failure 05/10/2022 Overview (05/10/2022): Added automatically from request for surgery [id number] Assessment & Plan (12/12/2022 4:11 PM EDT): Continue entresto and SGLT-2 inhibitor. Liver cyst 04/18/2022 Stage 3a chronic kidney disease 04/18/2022 Assessment & Plan (05/26/2024 11:04 AM EDT): Continue ARB and SGLT-2 inhibitor. Recent Cr improved. Assessment & Plan (05/01/2023 10:40 AM EDT): Continue ARB and SGLT-2 inhibitor. Mixed hyperlipidemia 01/05/2020 Assessment & Plan (11/17/2024 9:54 AM EDT): Continue statin. Check lipids. Assessment & Plan (05/26/2024 11:02 AM EDT): Continue statin. Plan to check lipids next visit. Assessment & Plan (11/15/2023 9:27 AM EDT): Continue statin. Check lipids. Assessment & Plan (05/01/2023 10:42 AM EDT): Continue statin. Plan to check lipids next visit. Assessment & Plan (12/12/2022 4:15 PM EDT): Continue statin. Lipids okay last visit. Assessment & Plan (07/04/2022 10:00 AM EDT): Continue statin. Check lipids today. Assessment & Plan (02/24/2022 3:59 PM EST): Continue statin. Assessment & Plan (10/18/2021 2:23 PM EDT): Continue statin. Assessment & Plan (05/17/2021 4:24 PM EDT): Continue statin. Assessment & Plan (12/17/2020 9:41 AM EDT): Continue statin. Check lipids. Anemia 11/22/2019 Assessment & Plan (11/20/2024 9:39 AM EDT): Orders: CBC & Differential Iron and TIBC Ferritin Chronic systolic heart failure 03/01/2019 LBBB (left bundle branch block) 12/27/2018 Type 2 diabetes mellitus, wi th long-term current use of insulin 12/27/2018 Seasonal allergic rhinitis 07/13/2015 Chronic coronary artery disease 07/13/2015 Assessment & Plan (11/15/2023 9:26 AM EDT): Continue ASA, plavix, statin and SGLT-2 inhibitor. Assessment & Plan (07/04/2022 10:12 AM EDT): Continue ASA, statin and SGLT-2 inhibitor. We discussed resuming GLP-1 RA at at lower dose. He c/o heaviness in his legs especially with walking. He has diminshed pulses in his feet. I wonder if he has some PAD. He will discuss this with his target protection specialist. Assessment & Plan (05/17/2021 4:36 PM EDT): Continue ASA, statin and SGLT-2 inhibitor. Add GLP-1 RA. Assessment & Plan (12/17/2020 9:40 AM EDT): Continue ASA, statin and SGLT-2 inhibitor. Assessment & Plan (04/07/2020 4:07 PM EST): Continue ASA, statin and SGLT-2 inhibitor. Hypertension 07/13/2015 Assessment & Plan (11/17/2024 9:54 AM EDT): Hypertension is stable and controlled. Continue current treatment regimen. Blood pressure will be reassessed in 6 months. Assessment & Plan (05/26/2024 10:59 AM EDT): Hypertension is stable and controlled. Continue current treatment regimen. Blood pressure will be reassessed in 6 months. Assessment & Plan (11/15/2023 9:26 AM EDT): Hypertension is stable and controlled Continue current treatment regimen. Blood pressure will be reassessed in 6 months. Assessment & Plan (05/01/2023 10:40 AM EDT): Hypertension is stable and controlled Continue current treatment regimen. Blood pressure will be reassessed in 6 months. Assessment & Plan (12/12/2022 4:11 PM EDT): Hypertension is unchanged. Continue current treatment regimen. Blood pressure will be reassessed at the next regular appointment. Assessment & Plan (07/04/2022 10:00 AM EDT): Hypertension is unchanged. Continue current treatment regimen. Blood pressure will be reassessed at the next regular appointment. Assessment & Plan (02/24/2022 3:59 PM EST): Hypertension is unchanged. Continue current treatment regimen. Blood pressure will be reassessed at the next regular appointment. Assessment & Plan (10/18/2021 2:22 PM EDT): Hypertension is unchanged. Continue current treatment regimen. Blood pressure will be reassessed at the next regular appointment. Assessment & Plan (05/17/2021 4:23 PM EDT): Hypertension is unchanged. Continue current treatment regimen. Blood pressure will be reassessed at the next regular appointment. Assessment & Plan (12/17/2020 9:40 AM EDT): Hypertension is unchanged. Continue current treatment regimen. Blood pressure will be reassessed at the next regular appointment. Assessment & Plan (07/23/2020 2:14 PM EDT): Hypertension is unchanged. Continue current treatment regimen. Blood pressure will be reassessed at the next regular appointment. Assessment & Plan (04/07/2020 4:06 PM EST): Hypertension is unchanged. Continue current treatment regimen. Blood pressure will be reassessed in 3 months. Assessment & Plan (01/05/2020 3:44 PM EST): Hypertension is unchanged. Continue current treatment regimen. Blood pressure will be reassessed in 3 months. Hypothyroidism 07/13/2015 Assessment & Plan (11/20/2024 9:39 AM EDT): Assessment & Plan (11/17/2024 9:56 AM EDT): Continue levothyroxine. Check TSH. Assessment & Plan (05/26/2024 11:03 AM EDT): Continue levothyroxine. Recent TSH okay. Assessment & Plan (11/15/2023 9:29 AM EDT): Continue T4 tx. Check TSH. Assessment & Plan (05/01/2023 10:42 AM EDT): Continue T4. Check TSH. Assessment & Plan (12/12/2022 4:14 PM EDT): Continue T4 tx. TSH okay last visit. Assessment & Plan (07/04/2022 10:00 AM EDT): Continue T4 tx. Check TSH. Assessment & Plan (02/24/2022 4:01 PM EST): Continue T4 tx. Check TSH today. Assessment & Plan (10/18/2021 2:22 PM EDT): Recent TSH okay at 3.7. Continue current T4 dose. Assessment & Plan (05/17/2021 4:24 PM EDT): Continue T4 tx. Assessment & Plan (12/17/2020 9:41 AM EDT): Continue T4. Check TSH. Assessment & Plan (07/23/2020 2:15 PM EDT): Continue T4. Check TSH today. Assessment & Plan (04/07/2020 4:06 PM EST): Continue T4 tx. Check TSH today. Assessment & Plan (01/05/2020 3:45 PM EST): Recent TSH at goal. Continue current T4 dose. 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 Continue current treatment regimen. Diabetes will be reassessed in 6 months. [employer] Oswald 3 CGM was downloaded today. Data was reviewed from 11/04/24 to 11/17/24. This showed fairly good overnight glucose control. Having some postprandial spikes, josep with supper. Encouraged him to be more aggressive with rapid acting insulin at supper. Time in range was 60%. Assessment & Plan (05/26/2024 11:13 AM EDT): Diabetes is stable. A1c relatively stable but above goal in the low 8 range. Continue current treatment regimen. But adjust insulin doses. He reports fasting FSBS have been okay. Continue current basal insulin. Titrate up mealtime insulin. Diabetes will be reassessed in 6 months. We discussed CGM today. Will see if Oswald 3+ is covered. Assessment & Plan (11/15/2023 9:35 AM EDT): Diabetes is improving with treatment. A1c much improved. He reports recent fasting FSBS have been 80 range. Continue current treatment regimen. Titrate up mealtime insulin by 2 units. Diabetes will be reassessed in 6 months. Assessment & Plan (05/01/2023 10:58 AM EDT): Diabetes is stable. Having occ nocturnal low. We discussed treatment options. I don't want to increase basal insulin due to nocturnal lows. He didn't tolerate trulicity. We discussed possible use of mounjaro. He checked with his insurance and it isn't available. Since it is not, then titrate up mealtime insulin. Diabetes will be reassessed in 3 months. Assessment & Plan (12/12/2022 4:23 PM EDT): Diabetes is worsening. He didn't tolerate GLP-1 RA. Will start mealtime insulin with 4u at each meal. Watch for hypoglycemia. Diabetes will be reassessed in 3 months. Assessment & Plan (07/04/2022 10:14 AM EDT): Diabetes is unchanged. Resume lower dose trulicity. Diabetes will be reassessed in 3 months. Assessment & Plan (02/24/2022 4:06 PM EST): Diabetes is worsening. A1c above goal. Titrate up trulicity. Continue current treatment regimen. Diabetes will be reassessed in 3 months. Assessment & Plan (10/18/2021 2:23 PM EDT): Diabetes is improving with treatment. Continue current treatment regimen. Diabetes will be reassessed in 3 months. Assessment & Plan (05/17/2021 4:36 PM EDT): Diabetes is worsening. Trial of GLP-1 RA. Potential s/e discussed. Sample of ozempic was provided. Watch for hypoglycemia. May need to decrease insulin. Diabetes will be reassessed in 3 months. Assessment & Plan (12/17/2020 9:47 AM EDT): Diabetes is improving with treatment. FSBS shows higher bedtime readings and occ lows during the night. Decrease lantus to avoid nocturnal hypoglycemia. Take low dose of 'log consistently with supper. Diabetes will be reassessed in 3 months. Assessment & Plan (07/23/2020 2:14 PM EDT): Diabetes is worsening. He has titrated up basal insulin and fasting FSBS are okay. Continue current treatment regimen. But take rapid acting insulin at supper consistently. May need to decrease basal insulin. Diabetes will be reassessed in 3 months. Assessment & Plan (04/07/2020 4:15 PM EST): Diabetes is worsening. Continue current treatment regimen. Diabetes will be reassessed in 3 months. A1c has crept up. Some higher FSBS but no clear patterns. He notes certain foods make his glucose higher. We discussed taking novolog with those meals proactively. Assessment & Plan (01/05/2020 3:44 PM EST): Diabetes is unchanged. Continue current treatment regimen. Diabetes will be reassessed in 3 months. Recent A1c not too bad at 7.2%. Continue current meds. Resolved Problems Problem Noted Date Diagnosed Date Resolved Date Chest pain 03/07/2024 11/20/2024 Elevated troponin 03/07/2024 11/20/2024 NSTEMI, initial episode of care 03/06/2024 11/20/2024 Influenza A 09/17/2023 03/07/2024 Insulin long-term use 01/05/20202022 Acute on chronic systolic co ngestive heart failure 11/22/2019 11/25/2019 Abnormal stress test 12/27/2018 023 Overview (12/27/2018): Added automatically from request for surgery [id number] Unstable angina 12/27/2018 04/20/2022 Overview (12/27/2018): Added automatically from request for surgery [id number] Type 2 myocardial infarction due to heart failure 12/27/2018 04/20/2022 Chest pain 01/08/2017 04/18/2022 Elevated troponin 01/05/2017 04/18/2022 Overview (01/05/2017): Added automatically from request for surgery [id number] Obesity (BMI 30-39.9) 09/16/20152022 Abdominal pain 07/13/2015 03/07/2024 Diarrhea 07/13/2015 03/07/2024 Encounters Date Type Department Care Team Description 01/14/2025 8:00 AM EST Telemedicine [facility] [address] [place] [address] Saira Benavidez, HOOP ROLLS OPERATOR ROXANNE (obstructive sleep apnea) (Primary Dx) 01/13/2025 Refill [facility] [address] [place] [address] Collins Ambrosio MD Uncontrolled type 2 diabetes mellitus with hyperglycemia 01/13/2025 Refill [facility] [address] [address] Canelo Madrigal MD 12/28/2024 Refill [facility] [address] [address] Canelo Madrigal MD 11/21/2024 Results Follow-Up [facility] [address] [address] Canelo Madrigal MD 11/20/2024 9:00 AM EDT Office Visit [facility] [address] [address] Canelo Madrigal MD Medicare annual wellness visit, subsequent (Primary Dx); Coronary artery disease involving hoopa coronary artery of hoopa heart without angina pectoris; Acquired hypothyroidism; Uncontrolled type 2 diabetes mellitus with hyperglycemia; Prostate cancer screening; Iron deficiency anemia, unspecified iron deficiency anemia type; ROXANNE on CPAP; Bilateral leg weakness; Right eye blindness of unknown category, unspecified left eye visual impairment category 11/20/2024 Travel 11/18/2024 Results Follow-Up [facility] [address] [facility] [address] [place] [address] Collins Ambrosio MD 11/17/2024 9:15 AM EDT Office Visit [facility] [address] [facility] [address] [place] [address] Collins Ambrosio MD Uncontrolled type 2 diabetes mellitus with hyperglycemia (Primary Dx); Primary hypertension; Mixed hyperlipidemia; Coronary artery disease involving hoopa coronary artery of hoopa heart without angina pectoris; Acquired hypothyroidism 11/17/2024 Travel 11/13/2024 Telephone [facility] [address] [facility] [address] [place] [address] Collins Ambrosio MD DOCUMENTATION FOR SUPPLIES from Last 3 Months Immunizations Immunization Administration Dates Next Due ABRYSVO (RSV, 60+ or pregnan t women 32-36 wks) 11/21/2023 COVID-19 (MODERNA) 1st,2nd,3 rd Dose Monovalent 06/17/2021,12/22/2020,05/06/2020,04/08 COVID-19 (MODERNA) BIVALENT 12+YRS 11/23/2021 FLUAD TRI 65YR+ 12/16/2018 FluMist 2-49yrs 12/09/2014 Fluad Quad 65+ 10/27/2019 Fluzone >6mos 12/11/2016 Fluzone High-Dose 65+YRS 11/20/2024,11/19/2023,1 Fluzone High-Dose 65+yrs 11/16/2022,11/23/2021 Fluzone Quad >6mos (Multi-dose) 12/11/2016,12/06 Hepatitis A 07/09/2018,10/08/2017 Pneumococcal Conjugate 13-Va lent (PCV13) 05/09/2018 Pneumococcal Polysaccharide (PPSV23) 10/27/2019, 03/10/2009 Shingrix 06/29/2021,02/23/2021 Td, Not Adsorbed 11/09/2019 Tdap 11/09/2011 Zostavax 04/25/2013 Family History Medical History Relation Name Comments No Known Problems Daughter Cancer Father Collins Hummel Emphysema Father Collins Hummel Diabetes Maternal Grandfather Mark Soares Diabetes Maternal Grandmother Linda Soares Arthritis Mother Kateryna Hummel Heart disease Mother Kateryna Hummel Hypertension Mother Kateryna Hummel Alzheimer's disease Sister Relation Name Status Comments Daughter Alive Father Collins Hummel Maternal Grandfather Mark Soares Maternal Grandmother Linda Soares Mother Kateryna Hummel Sister Alive Social History Tobacco Use Types Packs/Day Years Used Date Smoking Tobacco: Former Cigarettes 1 30 0 02/12/1963 - 02/12/1993 Passive Smoke Exposure: Past Smokeless Tobacco: Never Tobacco Cessation:Counseling Given: Not Answered Alcohol Use Standard Drinks/Week Comments No 0 [...] GED or equivalent No 03/07/2024 Preferred Language Romanian 03/07/2024 PHQ-2 Answer Date Recorded Patient Health Questionnaire-2 Score 0 11/20/2024 Sex and Gender Information Value Date Recorded Sex Assigned at Male 05/09/2024 7:29 AM EDT Legal Sex Male 10:36 AM EDT Gender Identity Not on file Sexual Orientation Straight 05/09/2024 7: 29 AM EDT Last Filed Vital Signs Vital Sign Reading Time Taken Comments Blood Pressure 120/70 11/20/2024 8:51 AM EDT Pulse 73 11/20/2024 8:51 AM EDT Temperature 36.4 C (97.5 F) 11/20/2024 8:51 AM EDT Respiratory Rate 20 10/16/2024 3:43 PM EDT Oxygen Saturation 97% 11/20/2024 8:51 AM EDT Inhaled Oxygen Concentration - - Weight 83 kg (183 lb) 01/14/2025 7:58 AM EST Height 177.8 cm (5' 10 ) 01/14/2025 7:58 AM EST Body Mass Index 26.26 01/14/2025 7:58 AM EST Plan of Treatment Upcoming Encounters Date Type Department Care Team (Late st Contact Info) Description 05/14/2025 8:45 AM EDT Office Visit [facility] [address] [facility] [address] [place] [address] Collins Ambrosio MD [address] [facility] [address] [place], [place] [id number] 05/21/2025 8:45 AM EDT Office Visit [facility] [address] [place] [address] Canelo Madrigal MD [address] [place] [address] 11/26/2025 9:00 AM EDT Office Visit [facility] [address] [place] [address] Canelo Madrigal MD [address] [place] [address] 01/13/2026 8:00 AM EST Telemedicine [facility] [address] [place] [id number] Saira Benavidez, HOOP ROLLS OPERATOR [address] [place] [address] Health Maintenance Due Date Last Done Comments COLOGUARD 1998 COLON CANCER SCREENING [address] COLONOGRAPHY 1998 FECAL OCCULT BLOOD TEST 1998 FIT Testing (1 year) 1998 HOST AND HOSTESS PLAN OF CARE 08/22/2017 05/24/2017 HEMOGLOBIN A1C 05/18/2025 11/17/2024, 05/13, 03/07/2024, Additional history exists COVID-19 Vaccine ( season) 2025 11/23/2021, 06/17/2021, 12/22/2020, Additional history exists Postponed from 10/13/2024 (Pending event) DIABETIC EYE EXAM 05/21/2025 09/19/2023 (Patient-Reported (Performed Externally)), 07/11/2022, 01/12/2021 (Patient-Reported (Performed Externally)), Additional history exists Postponed from 09/18/2024 (Pending event) DIABETIC FOOT EXAM 11/17/2025 11/17/2024 (Patient-Reported (Performed Externally)), 10/27/2019, 10/08/2017, Additional history exists LIPID PANEL 11/17/2025 11/17/2024, 02/13, 11/15/2023, Additional history exists URINE MICROALBUMIN-CREATININE RATIO (uACR) 11/17/2025 11/17/2024, 11/15/2023, 03/31/2015 ANNUAL WELLNESS VISIT 11/20/2025 11/20/2024 , 11/19/2023, 11/18/2023, Additional history exists COLONOSCOPY 09/15/2027 09/14/2020, 08/13, 05/24/2015 COLORECTAL CANCER SCREENING 09/15/2027 TDAP/TD VACCINES (3 - Td or Tdap) 11/08/2029 11/09/2019, 11/09/2011 HEPATITIS C SCREENING Completed 05/12/2016 AAA SCREEN ONCE Completed 05/31/2018 Pneumococcal Vaccine 50+ Completed 020, 05/09/2018, 03/10/2009 ZOSTER VACCINE Completed 06/29/2021, 02/12, 04/25/2013 LUNG CANCER SCREENING Discontinued 04/17/2022 INFLUENZA VACCINE Completed 11/20/2024, , 11/16/2022, Additional history exists [facility] Discontinued Medical Devices Implanted Type Area Safe Expert Device Identifier Shelf Expiration Date Model / Serial / Lot Gen Kinza Sumner Hf Crtd [id number] - [id number] - [id number] Implanted:Qty: 1 on 05/11/2022 by Jose Ray MD at [facility] Implant N/A: Chest [employer] 01/12/2024 [id number] / [id number] / Ld Pm Tendril Sts 6f52cm [id number] - [id number] - [id number] Implanted:Qty: 1 on 05/11/2022 by Jose Ray MD at [facility] Lead N/A: Chest [employer] 03/14/2025 [id number] / [id number] / Ld Defib Durata Sj4 65cm [id number] - [id number] - [id number] Implanted:Qty: 1 on 05/11/2022 by Jose Ray MD at [facility] Lead N/A: Chest [employer] 01/11/2025 [id number] / [id number] / Ld Quartet Infusion Nurse Vent Lng Spacing 86cm - [id number] - [id number] Implanted:Qty: 1 on 05/11/2022 by Jose Ray MD at [facility] Lead N/A: Chest [employer] 01/11/2025 [id number] / [id number] / Stent Xience Megan Everolimus Nakul 2.5x15mm - [id number] Implanted:Qty: 1 on 12/28/2018 by Thaddeus Byrnes MD at [facility] [employer] [id number] / / Stent Xience Megan Everolimus Nakul 2.5x15mm - [id number] Implanted:Qty: 1 on 12/28/2018 by Thaddeus Byrnes MD at [facility] [employer] [id number] / / Stnt Xience Megan Everolimus Nakul 2.49v67pe - [id number] Implanted:Qty: 1 on 11/24/2019 by Rehan Hughes MD at [facility] [employer] [id number] / / [id number] Stnt Cornry Rx Xience/Skypoin t Rapdxng 3.5x23mm - [id number] Implanted:Qty: 1 on 03/07/2024 by Vinay Hinkle MD at [facility] N/A: Coronary [employer] 11/10/2026 [id number] / / [id number] Procedures Procedure Name Priority Date/Time Associated Diagnosis Comments CBC AND DIFFERENTIAL Routine 11/20/2024 9:34 AM EDT Iron deficiency anemia, unspecified iron deficiency anemia type PSA SCREEN Routine 11/20/2024 9:34 AM EDT Prostate cancer screening FERRITIN Routine 11/20/2024 9:34 AM EDT Iron deficiency anemia, unspecified iron deficiency anemia type IRON PROFILE Routine 11/20/2024 9:34 AM EDT Iron deficiency anemia, unspecified iron deficiency anemia type TSH Routine 11/17/2024 10:03 AM EDT Uncontrolled type 2 diabetes mellitus with hyperglycemia MICROALBUMIN / CREATININE URINE RATIO Routine 11/17/2024 10:03 AM EDT Uncontrolled type 2 diabetes mellitus with hyperglycemia LIPID PANEL Routine 11/17/2024 10:03 AM EDT Uncontrolled type 2 diabetes mellitus with hyperglycemia COMPREHENSIVE METABOLIC PANEL Routine 11/17/2024 10:03 AM EDT Uncontrolled type 2 diabetes mellitus with hyperglycemia POCT GLYCOSYLATED HEMOGLOBIN (HGB A1C) Routine 11/17/2024 9:17 AM EDT Uncontrolled type 2 diabetes mellitus with hyperglycemia POCT GLUCOSE, BLD (NON STRIP) Routine 11/17/2024 9:16 AM EDT Uncontrolled type 2 diabetes mellitus with hyperglycemia SCANNED - EYE EXAM 07/11/2022 CT ANGIOGRAM CHEST STAT 04/17/2022 11 :12 PM EST SCANNED - COLONOSCOPY 09/14/2020 US AAA SCREEN LIMITED Routine 05/31/2018 9:13 AM EDT Personal history of tobacco use, presenting hazards to health SCANNED - INFLUENZA 11/21/2017 HEPATITIS C ANTIBODY Routine 05/12/2016 9:03 AM EDT Need for hepatitis C screening test from Last 3 Months or Most Recently Relevant to Health Maintenance Results * PSA Screen (11/20/2024 9:34 AM EDT) PSA 0.822 0.000 - 4.000 ng/mL [facility] Comment: Testing Method: [employer] Electrochemiluminescence Immunoassay(ECLIA) Values obtained with different assay methods or kits cannot be used interchangeably. Blood 11/20/2024 9:34 AM EDT 11/20/2024 Narrative [facility] (AMBULATORY) - 11/21/2024 3:07 AM EDT Performed at: [address] [place] [address] [address] [place], [place] [id number] Lymphedema Therapist: Neftaly Davis MD, Phone: [phone] Patient Fasting: Y us Canelo Madrigal MD LAB BLOOD ORDERABLES Final Resu lt Performing Organization Address [facility] Co de Phone Number [facility] [place] ([facility]BUL[facility]ORY) [address] [place] [address], [place] [phone] [facility] [address] [place] [address], [place] [phone] * (ABNORMAL) Iron and TIBC (11/20/2024 9:34 AM EDT) [facility] TIBC 349 mcg/dL [facility] UIBC 290 112 - 346 mcg/dL [facility] Iron 59 59 - 158 mcg/dL [facility] Iron Saturation 17(L) 20 - 50 % [facility] Blood 11/20/2024 9:34 AM EDT 11/20/2024 Narrative [facility] [place] ([facility]) - 11/21/2024 3:07 AM EDT Performed at: [address] [place] [address] [address] [place], [place] [id number] Lymphedema Therapist: Neftaly Davis MD, Phone: [phone] Patient Fasting: Y us Canelo Madrigal MD LAB BLOOD ORDERABLES Final Resu lt Performing Organization Address City/[facility]/ZIP Co de Phone Number [facility] ([facility]BULATORY) [address] [place] [address], [place] [phone] [facility] [address] [place] [address], [place] [phone] * (ABNORMAL) CBC & Differential (11/20/2024 9:34 AM EDT) [facility] WBC 6.05 3.40 - 10.80 10*3/mm3 [facility] RBC 3.93(L) 4.14 - 5.80 10*6/mm3 [facility] Hemoglobin 11.7(L) 13.0 - 17.7 g/dL [facility] Hematocrit 36.1(L) 37.5 - 51.0 % [facility] MCV 91.9 79.0 - 97.0 fL [facility] MCH 29.8 26.6 - 33.0 pg [facility] MCHC 32.4 31.5 - 35.7 g/dL [facility] RDW 14.1 12.3 - 15.4 % [facility] Platelets 214 140 - 450 10*3/mm3 [facility] Neutrophil Rel % 56.3 42.7 - 76.0 % [facility] Lymphocyte Rel % 26.8 19.6 - 45.3 % [facility] Monocyte Rel % 10.9 5.0 - 12.0 % [facility] Eosinophil Rel % 5.1 0.3 - 6.2 % [facility] Basophil Rel % 0.7 0.0 - 1.5 % [facility] Neutrophils Absolute 3.41 1.70 - 7.00 10*3/mm3 [facility] Lymphocytes Absolute 1.62 0.70 - 3.10 10*3/mm3 [facility] Monocytes Absolute 0.66 0.10 - 0.90 10*3/mm3 [facility] Eosinophils Absolute 0.31 0.00 - 0.40 10*3/mm3 [facility] Basophils Absolute 0.04 0.00 - 0.20 10*3/mm3 [facility] Immature Granulocyte Rel % 0.2 0.0 - 0.5 % [facility] Immature Grans Absolute 0.01 0.00 - 0.05 10*3/mm3 [facility] nRBC 0.0 0.0 - 0.2 /100 WBC [facility] Blood 11/20/2024 9:34 AM EDT 11/20/2024 Narrative [facility] ([facility]) - 11/21/2024 3:07 AM EDT Performed at: [address] [id number] Lymphedema Therapist: Neftaly Davis MD, Phone: [phone] Patient Fasting: Y us Canelo Madrigal MD LAB BLOOD ORDERABLES Final Resu lt Performing Organization Address [facility]/ZIP Co de Phone Number [facility] [place] ([facility]) [address] [place] [address], [place] [phone] [facility] [address] [place] [address], [place] [phone] * Ferritin (11/20/2024 9:34 AM EDT) [facility] Ferritin 96.60 30.00 - 400.00 ng/mL [facility] Comment:Results may be false ly decreased if patient taking Biotin. Blood 11/20/2024 9:34 AM EDT 11/20/2024 Narrative [facility] (AMBULATORY) - 11/21/2024 3:07 AM EDT Performed at: [address] [place] [id number] Lymphedema Therapist: Neftaly Davis MD, Phone: [phone] Patient Fasting: Y us Canelo Madrigal MD LAB BLOOD ORDERABLES Final Resu lt Performing Organization Address [facility]/ZIP Co de Phone Number [facility] (AMBULATORY) [address] [place] [address], [place] [phone] [facility] [address] [place] [address], [place] [phone] * (ABNORMAL) Microalbumin / Creatinine Urine Ratio - Urine, Clean Catch (11/17/2024 10:03 AM EDT) [facility] Microalbumin/C reatinine Ratio 32.8(H) 0.0 - 29.0 mg/g 11/17/2024 3:14 PM EDT [facility] Creatinine, Urine 79.3 mg/dL 11/17/2024 3:14 PM EDT [facility] Microalbumin, Urine 2.6 mg/dL 11/17/2024 3:14 PM EDT [facility] Urine Urine specimen obtained by clean catch procedure / Unknown Collection / Unknown 11/17/2024 10:03 AM EDT 11/17/2024 10:03 AM EDT Collins Ambrosio MD URINE ORDERABLES Final Re sult [facility]
[address] [place] [address], * TSH (11/17/2024 10:03 AM EDT) TSH 1.500 0.270 - 4.200 uIU/mL 11/17/2024 3:13 PM EDT [facility] Blood Structure of left upper limb / Unknown Venipuncture / Unknown 11/17/2024 10:03 AM EDT 11/17/2024 10:03 AM EDT Collins Ambrosio MD LAB BLOOD ORDERABLES Bernadette l Result [facility]
[address] [place] [address], * Lipid Panel (11/17/2024 10:03 AM EDT) Total Cholesterol 102 0 - 200 mg/dL 11/17/2024 3:10 PM EDT [facility] Triglycerides 100 0 - 150 mg/dL 11/17/2024 3:10 PM EDT [facility] HDL Cholesterol 41 40 - 60 mg/dL 11/17/2024 3:10 PM EDT [facility] LDL Cholesterol 42 0 - 100 mg/dL 11/17/2024 3:10 PM EDT [facility] VLDL Cholesterol 19 5 - 40 mg/dL 11/17/2024 3:10 PM EDT [facility] LDL/HDL Ratio 1.00 11/17/2024 3:10 PM EDT [facility] Blood Structure of left upper limb / Unknown Venipuncture / Unknown 11/17/2024 10:03 AM EDT 11/17/2024 10:03 AM EDT Narrative [facility] - 11/17/2024 3:10 PM EDT Cholesterol Reference Ranges (U.S. Department of Health and Human Services ATP III Classifications) Desirable <200 mg/dL Borderline High 200-239 mg/dL High Risk >240 mg/dL Triglyceride Reference Ranges (U.S. Department of Health and Human Services ATP III Classifications) Normal <150 mg/dL Borderline High 150-199 mg/dL High 200-499 mg/dL Very High >500 mg/dL HDL Reference Ranges (U.S. Department of Health and Human Services ATP III Classifications) Low <40 mg/dl (major risk factor for CHD) High >60 mg/dl ('negative' risk factor for CHD) LDL Reference Ranges (U.S. Department of Health and Human Services ATP III Classifications) Optimal <100 mg/dL Near Optimal 100-129 mg/dL Borderline High 130-159 mg/dL High 160-189 mg/dL Very High >189 mg/dL LDL is calculated using the NIH LDL-C calculation. Collins Ambrosio MD LAB BLOOD ORDERABLES Bernadette watkins Result [facility]
[address] [place] [address], * (ABNORMAL) Comprehensive Metabolic Panel (11/17/2024 10:03 AM EDT) Glucose 164(H) 65 - 99 mg/dL 11/17/2024 3:10 PM EDT [facility] BUN 38.0(H) 8.0 - 23.0 mg/dL 11/17/2024 3:10 PM EDT [facility] Creatinine 1.43(H) 0.76 - 1.27 mg/dL 11/17/2024 3:10 PM EDT [facility] Sodium 137 136 - 145 mmol/L 11/17/2024 3:10 PM EDT [facility] Potassium 4.1 3.5 - 5.2 mmol/L 11/17/2024 3:10 PM [facility] Chloride 101 98 - 107 mmol/L 11/17/2024 3:10 PM [facility] CO2 21.6(L) 22.0 - 29.0 mmol/L 11/17/2024 3:10 PM [facility] Calcium 10.0 8.6 - 10.5 mg/dL 11/17/2024 3:10 PM [facility] Total Protein 7.8 6.0 - 8.5 g/dL 11/17/2024 3:10 PM [facility] Albumin 4.1 3.5 - 5.2 g/dL 11/17/2024 3:10 PM [facility] ALT (SGPT) 31 1 - 41 U/L 11/17/2024 3:10 PM [facility] AST (SGOT) 32 1 - 40 U/L 11/17/2024 3:10 PM [facility] Alkaline Phosphatase 43 39 - 117 U/L 11/17/2024 3:10 PM [facility] Total Bilirubin 0.3 0.0 - 1.2 mg/dL 11/17/2024 3:10 PM [facility] Globulin 3.7 gm/dL 11/17/2024 3:10 PM [facility] A/G Ratio 1.1 g/dL 11/17/2024 3:10 PM [facility] BUN/Creatinine Ratio 26.6(H) 7.0 - 25.0 11/17/2024 3:10 PM [facility] Anion Gap 14.4 5.0 - 15.0 mmol/L 11/17/2024 3:10 PM [facility] eGFR 52.4(L) >60.0 mL/min/1.7 3 11/17/2024 3:10 PM [facility] Blood Structure of left upper limb / Unknown Venipuncture / Unknown 11/17/2024 10:03 AM EDT 11/17/2024 10:03 AM EDT Narrative [facility] - 11/17/2024 3:10 PM EDT GFR Categories in Chronic Kidney Disease (CKD) GFR Category GFR (mL/min/1.73) Interpretation G1 90 or greater Normal or high (1) G2 60-89 Mild decrease (1) G3a 45-59 Mild to moderate decrease G3b 30-44 Moderate to severe decrease G4 15-29 Severe decrease G5 14 or less Kidney failure (1)In the absence of evidence of kidney disease, neither GFR category G1 or G2 fulfill the criteria for CKD. eGFR calculation 2020 CKD-EPI creatinine equation, which does not include race as a factor us Collins Ambrosio MD LAB BLOOD ORDERABLES Bernadette l Result [facility]
[address] [place] [address], * (ABNORMAL) POC Glycosylated Hemoglobin (Hb A1C) (11/17/2024 9:17 AM EDT) Hemoglobin A1C 8.1(A) 4.5 - 5.7 % [facility] Lot Number [id number] [facility] Expiration Date 06/16/26 [facility] Blood 11/17/2024 9:17 AM EDT us Collins Ambrosio MD POINT OF CARE TEST ORDERA BLES Final Result [facility]
[address] [place] [address], [place] [phone] * (ABNORMAL) POC Glucose, Blood (11/17/2024 9:16 AM EDT) Glucose 196(A) 70 - 130 mg/dL Lot Number [id number] Expiration Date 04/18/2025 Blood 11/17/2024 9:16 AM EDT us Collins Ambrosio MD POINT OF CARE TEST ORDERA BLES Final Result * SCANNED - EYE EXAM (07/11/2022) Anatomical Region Laterality Modality Other [facility] CHART REVIEW TABS Final Re sult * CT Angiogram Chest (04/17/2022 11:12 PM EST) Anatomical Region Laterality Modality Chest, Vascular N/A Computed Tomogra phy 04/17/2022 9:44 PM EST Impressions 04/17/2022 11:51 PM EST 1. No evidence of pulmonary embolism. 2. Reflux of contrast into the IVC can be a sign of right heart dysfunction. 3. Circumferential mucosal thickening of the lower esophagus. This can be seen with esophagitis, or tumor, for example. Recommend GI consult or a patient follow-up with PCP. 4. Multiple liver cysts. Electronically signed by: Jagdish Kim M.D. 04/17/2022 9:51 PM Mountain Time Narrative 04/17/2022 11:51 PM EST EXAMINATION: CT ANGIOGRAM CHEST WITH IV CONTRAST DATE OF EXAMINATION: April 17, 2022 INDICATION: Weakness and dizziness COMPARISON: None available. PROCEDURE: 75 ml of Isovue 370 contrast were administered intravenously during arterial phase axial CT chest imaging, with 2-D sagittal and coronal and 3-D MIP reformations. CT dose lowering techniques were used, to include: automated exposure control, adjustment for patient size, and or use of iterative reconstruction. FINDINGS: Cardiovascular: No pulmonary embolism is identified. Aorta and great vessels exhibit no aneurysm or dissection. There is reflux of contrast into the IVC. Mediastinum/Sweetie: No mediastinal or hilar mass or significant lymphadenopathy identified. Mild circumferential mucosal thickening of the lower esophagus. Lungs/Pleura : No infiltrates or effusions are identified. No effusion, pleural mass, thickening or pneumothorax. Chest wall and Axilla: Normal. Breast Tissue: Symmetric. No masses. Bones: Unremarkable. Upper abdomen: Multiple cystic lesions within the liver.. Additional significant findings: None. Procedure Note Jagdish Kim MD - 04/17/2022 EXAMINATION: CT ANGIOGRAM CHEST WITH IV CONTRAST DATE OF EXAMINATION: April 17, 2022 INDICATION: Weakness and dizziness COMPARISON: None available. PROCEDURE: 75 ml of Isovue 370 contrast were administered intravenouslyduring arterial phase axial CT chest imaging, with 2-D sagittal andcoronal and 3-D MIP reformations. CT dose lowering techniques were used,to include: automated exposure control, adjustment for patient size, and or use of iterative reconstruction. FINDINGS: Cardiovascular: No pulmonary embolism is identified. Aorta and greatvessels exhibit no aneurysm or dissection. There is reflux of contrastinto the IVC. Mediastinum/Sweetie: No mediastinal or hilar mass or significantlymphadenopathy identified. Mild circumferential mucosal thickening ofthe lower esophagus. Lungs/Pleura : No infiltrates or effusions are identified. No effusion,pleural mass, thickening or pneumothorax. Chest wall and Axilla: Normal. Breast Tissue: Symmetric. No masses. Bones: Unremarkable. Upper abdomen: Multiple cystic lesions within the liver.. Additional significant findings: None. IMPRESSION: 1. No evidence of pulmonary embolism. 2. Reflux of contrast into the IVC can be a sign of right heartdysfunction. 3. Circumferential mucosal thickening of the lower esophagus. This canbe seen with esophagitis, or tumor, for example. Recommend GI consult ora patient follow-up with PCP. 4. Multiple liver cysts. Electronically signed by: Jagdish Kim M.D. 04/17/2022 9:51 PM Mountain Time Pradeep VELIZ IMG CT ORDERABLES Final Result * SCANNED - COLONOSCOPY (09/14/2020) Canelo Madrigal MD CHART REVIEW TABS Final Resu lt * US aaa screen limited (05/31/2018 9:13 AM EDT) Anatomical Region Laterality Modality Body, Abdomen, Vascular Ultrasou nd 05/31/2018 10:5 7 AM EDT Impressions 06/04/2018 9:10 AM EDT Patent nonaneurysmal abdominal aorta. E: 05/31/2018 This report was finalized on 06/04/2018 9:[address] Bennett Lima. Narrative 06/04/2018 9:10 AM EDT EXAMINATION: US AAA SCREEN, LIMITED-05/31/2018: INDICATION: Screen for AAA; Z87.891-Personal history of nicotine dependence. TECHNIQUE: Ultrasound AAA screening of the abdominal aorta and common iliac arteries. COMPARISON: NONE. FINDINGS: Patent antegrade arterial flow within the visualized abdominal aorta and common iliac arteries with maximum transverse diameters of respective segments detailed below: Proximal abdominal aorta 2.3 cm. Mid abdominal aorta 1.9 cm. Distal abdominal aorta 1.6 cm. Right common iliac 1.2 cm. Left common iliac 1.3 cm. Procedure Note Bennett Lima, - 06/04/2018 EXAMINATION: US AAA SCREEN, LIMITED-05/31/2018: INDICATION: Screen for AAA; Z87.891-Personal history of nicotine dependence. TECHNIQUE: Ultrasound AAA screening of the abdominal aorta and common iliac arteries. COMPARISON: NONE. FINDINGS: Patent antegrade arterial flow within the visualized abdominal aorta and common iliac arteries with maximum transverse diameters of respective segments detailed below: Proximal abdominal aorta 2.3 cm. Mid abdominal aorta 1.9 cm. Distal abdominal aorta 1.6 cm. Right common iliac 1.2 cm. Left common iliac 1.3 cm. IMPRESSION: Patent nonaneurysmal abdominal aorta. E: 05/31/2018 This report was finalized on 06/04/2018 9:[address] Bennett Lima. Duncan Dubon MD [facility] [place] ORDERABLES Final Resul t * SCANNED - INFLUENZA (11/21/2017) Duncan Dubon MD CHART REVIEW TABS Final Re sult * Hepatitis C Antibody (05/12/2016 9:03 AM EDT) Hepatitis C Ab Non-Reacti ve Non-Reacti ve 05/12/2016 4:42 PM EDT [facility] Blood Left upper arm structure / Unknown Venipuncture / Unknown 05/12/2016 9:03 AM EDT 05/12/2016 9:03 AM EDT Duncan Dubon MD LAB BLOOD ORDERABLES Final Re sult [facility]
[address] [id number], from Last 3 Months or Most Recently Relevant to Health Maintenance Insurance [id number] [employer] PPO Advance Directives * CPR (Attempt to Resuscitate) (Latest Code Status on File) Date Activated Date Inactivated Comments 03/07/2024 2:42 AM 03/07/2024 7:32 PM Question Answer Comments Code Status (Patient has no pulse and is not breathing): CPR (Attempt to Resuscitate) Medical Interventions (Patie nt has pulse or is breathing): Full Support * CPR (Attempt to Resuscitate) Date Activated Date Inactivated Comments 04/18/2022 4:16 PM 04/20/2022 2:41 PM Question Answer Comments Code Status (Patient has no pulse and is not breathing): CPR (Attempt to Resuscitate) Medical Interventions (Patie nt has pulse or is breathing): Full Level Of Support Discussed With: Patient * CPR (Attempt to Resuscitate) Date Activated Date Inactivated Comments 04/18/2022 4:28 AM 04/18/2022 4:16 PM Question Answer Comments Code Status (Patient has no pulse and is not breathing): CPR (Attempt to Resuscitate) Medical Interventions (Patie nt has pulse or is breathing): Full Support * CPR (Attempt to Resuscitate) Date Activated Date Inactivated Comments 11/22/2019 9:44 PM 11/25/2019 4:28 PM Question Answer Comments Code Status (Patient has no pulse and is not breathing): CPR (Attempt to Resuscitate) Medical Interventions (Patie nt has pulse or is breathing): Full Level Of Support Discussed With: Patient * CPR (Attempt to Resuscitate) Date Activated Date Inactivated Comments 12/27/2018 9:35 PM 12/30/2018 6:44 PM Question Answer Comments Code Status (Patient has no pulse and is not breathing): CPR (Attempt to Resuscitate) Medical Interventions (Patie nt has pulse or is breathing): Full Level Of Support Discussed With: Patient Care Teams Kiln Car Repairer Relationship Specialty Start Date End Date Canelo Madrigal MD [address] [place] [id number] PCP - General Family Medicine 05/06/20
--- OUTSIDE RECORDS SUMMARY | 2025-02-08 11:56 | XMS_ITS | Encounter Summary ---
Author Organization [facility] Address [address] [place] [address] Care Team Providers Care Photographic Press Screwmaker Name Role Phone Canelo Madrigal MD Primary Care Provider [phone] Encounter Details Date Type Department Care Team (Late st Contact Info) Description 05/23/2024 Results Follow-Up [facility] FAMILY MEDICINE [address] [facility] [address] Canelo Madrigal MD [address] [facility] [place] [place] [address] Social History Tobacco Use Types [...] GED or equivalent No 03/07/2024 Preferred Language Irish 03/07/2024 PHQ-2 Answer Date Recorded Retired PHQ-9: [...] Description 05/14/2025 8:45 AM EDT Office Visit [facility] ENDOCRINOLOGY [address] [phone] Collins Ambrosio MD [address] [address] 05/21/2025 8:45 AM EDT Office Visit [facility] FAMILY MEDICINE [address] [place] [address] Canelo Madrigal MD [address] [place] [address] 11/26/2025 9:00 AM EDT Office Visit [facility] FAMILY MEDICINE [address] [place] [address] Canelo Madrigal MD [address] [place] [address] 01/13/2026 8:00 AM EST Telemedicine [facility] SLEEP MEDICINE [address] [place] [phone] Saira Benavidez, [employer] TER[employer]AL OPERATOR [address] [place] [address] documented as of this encounter Visit Diagnoses Not on filedocumented in this encounter Care Teams Photographic Press Screwmaker Relationship Specialty Start Date End Date Canelo Madrigal MD [address] [place] [address] PCP - General Family Medicine 05/06/20 documented as of this encounter
--- OUTSIDE RECORDS SUMMARY | 2025-02-08 11:56 | XMS_ITS | Continuity of Care Document ---
Author Organization [facility] MICAH Koehler LANGFORD Address [address] [place] [address] Care Team Providers Care Medical Service Representative Name Role Phone QUINTIN RAPP Taxation Agent YANG HERNANDEZ Primary Care Provider Assessment Encounter Date Assessment Date Assessment LastModified by Organization Details LastModified Time 01/20/2025 01/20/2025 POST-OPERATIVE 1. Team members confirm that all sharps are accounted for and safely contained prior to dressing application. [facility] 2. Vitals signs are documented and acceptable for discharge. Elena Salgado RN 3. Photos have been taken and uploaded into the chart. Leslie Nguyen CST 4. Written post-operative instructions, prescriptions, and overnight [...] available Not available Not available Lab None recorded. Referral None recorded. Procedures None recorded. Surgeries None recorded. Imaging None recorded. Medication Orders None recorded. Patient TargetsNo targets recorded. Patient InstructionsNo instructions recorded. Reason for Referral None Reported. Procedures Surgical History Date Name Laterality Status Provider Name and Address Organization Details Recorded Time 5 Mohs 1 Lesion completed AMAN PEÑALOZA DO [address] [place], [address], [facility] 01/21/2025 20:26:45 5 Mohs Repair: Secondary Intent completed Leslie Patrick [facility] 01/20/2025 15:39:14 5 DAK - Cryo AK completed [facility] 12/10/2024 11:10:14 5 Blade Biopsy completed [facility] 12/10/2024 11:10:05 5 DAK - Cryo AK completed [facility] 06/09/2024 11:06:25 5 Destruction BN Lesions completed [facility] 06/09/2024 11:06:22 4 DAK - Cryo AK completed [facility] 12/10/2023 10:58:03 4 Blade Biopsy w/ ED&C completed KEREN LENNON [address] [place], [address], [facility] 12/10/2023 12:43:28 4 Destruction BN Lesions completed [facility] 12/10/2023 11:01:35 4 DAK - Cryo AK completed Brennon Sin [facility] 06/11/2023 11:00:15 cataract surgery completed Dinah Casper [facility] 06/11/2023 10:42:06 placement of stent in pulmonary artery completed Valerio [facility] 06/09/2024 10:37:51 Imaging Results None recorded. Procedure Notes None recorded. Medical Equipment None Reported. Allergies Allergen ID Allergen Name Allergen Category Reaction Reaction Severity Criticality Documentation Date Start Date Code Code System Note Provider Name and Address Organization Details Recorded Time 877348 Bactrim medicatio n Not available Not available Not available 06/11/2023 54711 9 [facility] 10:41:33 634183 Biaxin medicatio n Not available Not available Not available 06/11/202366164 9 [facility] 10:41:40 626825 clarithro mycin medicatio n nausea Not available [facility] 12/25/20242015 20440 RxNorm Not Available [employer] [facility] 5 16:19:02 197720 sulfameth oxazole / trimethop rim medicatio n other Not available Not available 12/25/20242023 05497 RxNorm Not Available [employer] - prod 16:19:02 987729 dulagluti de medicatio n Not available Not available Not available 12/25/20242022 73285 91 RxNorm unrec ogniz ed react ion (text : GI Intol eranc e, code: 73434 [id number]) (from [facility] e) Not Available [employer] - prod 16:19:02 Medications Name [...] Not Available Not Available Not Avai lable Eagle 5 mg-325 mg tablet active Medicatio n [...] /min 133/77 mm[Hg] 135/76 mm[Hg] Elena ireland [facility] 5 13:38:16 Social History Question Answer Notes LastModified by Organizat ion Details LastModified Time Tobacco Smoking Status Never Smoker Dinah flor [facility] 06/11/2023 10:41:53 Sunscreen Use? Yes [email or web address] Informatio n not available 12/10/2023 Tanning Bed Use No [email or web address] Informati on not available 12/10/2023 Are You Or Trying To Become ? No Information not available 12/10/2023 Are You On Control? No [email or web address] Information not available 12/10/2023 Are You ? No [email or web address] Information not available 12/10/2023 What Was The Date Of Your Most Recent Tobacco Screening? 12/10/2024 [email or web address] Information not available 12/10/2024 Has Tobacco Cessation Counseling Been Provided? No [email or web address] Information not available 12/10/2023 Sex: Male Functional Status Question Answer Note LastModified by Organizat ion Details LastModified Time Do you use any illicit or recreational drugs? No [email or web address] Information not available 12/10/2023 Do you or have you ever used any other forms of tobacco or nicotine? No Information not available 12/10/2023 What is your level of alcohol consumption? None [email or web address] Information not available 12/10/2023 Mental Status None recorded. Family History Nothing Reported. Medical History Condition Response Skin Cancer Y Squamous Cell Carcinoma Y Past Encounters Encounter ID Performer Location Encounter Start Date Encounter Closed Date Diagnosis/Indication Diagnosis SNOMED-CT Code Diagnosis ICD10 Code Diagnosis IMO Codes Diagnosis Note [id number] AMAN NASCIMENTO-JJ AN, DO [address] [address] 01/20/2025 09:34:08 01/28/2025 10:12:20 Squamous cell carcinoma of scalp 862734830 C44.42 [id number] Health Concerns Section Related Observation LastModified by Organization Detai ls LastModified Time None Recorded Concern Status LastModified by Organization Details LastModified Time None Recorded Payers Encounter Date Sequence Insurance Name Policy Number Policy Galeana Covered Member ID Galeana Member ID Guarantor Name 01/20/[address] [facility] (MEDICARE REPLACEMENT/A DVANTAGE - PPO) [id number] Chaim Hummel [id number] Chaim Hummel Notes Date Note Type Note Provider Name and Address Organization Details Recorded Time 01/20/2025 text/html ROS as noted in the [...] consent is confirmed for accuracy and signatures.Cami Bowen DO5. Surgical site is marked with pen by surgeon, confirmed by patient using a mirror, and all other patient care providers prior to administration of pre-operative medications and local anesthesia.Aman Peñaloza DO6. Pre-operative medication is administered as ordered by [...] 2Score > 5 = High Risk AMAN PEÑALOZA DO [address] [place], [address], [facility] 01/21/2025 20:27:03
--- NOTE | 2025-02-08 12:11 | HMH.EDGENADL ---
Discharge Plan Disposition Patient Disposition: Home, Self-Care Prescriptions Prescriptions: New lidocaine 5 % adhesive patch,medicated 1 patch topical DAILY Qty: 15 0RF Rx Instructions: leave on most painful area for up to 12 hrs hydrocodone-acetaminophen 5-325 mg tablet 1 tab PO TID PRN (Reason: pain) Qty: 15 0RF Rx Instructions: Can combine with 650 mg of Tylenol. acyclovir 800 mg tablet 800 mg PO 5XD Qty: 35 0RF Rx Instructions: space evenly during waking hours No Action Entresto 24-26 mg tablet 1 tab PO BID clopidogrel [Plavix] 75 mg tablet 75 mg PO DAILY azelastine 137 mcg (0.1 %) aerosol,spray 1 spray INTRANASAL BID Rx Instructions: administer into each nostril albuterol sulfate 90 mcg/actuation HFA aerosol inhaler 2 puff inhalation Q6H PRN (Reason: SOB, wheezing) 30 Days Qty: 6.7 0RF Rx Instructions: administer with spacer insulin lispro [Humalog U-100 Insulin] 100 unit/mL solution 10 unit SQ .four times day Patient Comments: before meals and at bedtime nitroglycerin 2.5 mg capsule, extended release 0.4 mg PO DIRECTED Rx Instructions: allow nitrate-free interval of approx. 10-12 hrs per 24-hour period pantoprazole 40 mg tablet,delayed release (DR/EC) 40 mg PO DAILY insulin glargine [Lantus Solostar U-100 Insulin] 100 unit/mL (3 mL) insulin pen 48 unit SQ Jardiance 25 mg tablet 25 mg PO DAILY (DME) Accu-Chek Guide test strips Strip See Rx Instructions .ROUTE .MEDSUPPLY Qty: 10 Rx Instructions: As directed metformin 500 mg tablet extended release 24 hr 1,000 mg PO BID levothyroxine 112 mcg tablet 112 mcg PO DAILY carvedilol 6.25 mg tablet 6.25 mg PO Q12H furosemide 40 mg tablet 20 mg PO DAILY isosorbide mononitrate 60 mg tablet extended release 24 hr 60 mg PO DAILY acetaminophen 325 mg tablet 325 mg PO QID PRN ferrous sulfate 325 mg (65 mg iron) tablet 325 mg PO DAILY rosuvastatin 40 mg tablet 40 mg PO DAILY cholecalciferol (vitamin D3) 50 mcg (2,000 unit) capsule 50 mcg PO DAILY coenzyme Q10 100 mg capsule 100 mg PO DAILY ascorbic acid (vitamin C) 250 mg tablet 250 mg PO DAILY krill oil 500 mg capsule 300 mg PO DAILY aspirin [Adult Low Dose Aspirin] 81 mg tablet,delayed release (DR/EC) 81 mg PO DAILY budesonide-formoterol [Symbicort] 160-4.5 mcg/actuation HFA aerosol inhaler 2 puff inhalation BID 90 Days Qty: 10.2 2RF Referrals Follow up/Referrals: Patrice Mena MD [Nurse Practitioner, Pain Management] - See instructions Canelo Madrigal MD [Primary Care Provider, Medical] - See instructions Activity Restrictions/Add. Instructions Additional Instructions/Restrictions: At this time it was felt you are safe to be discharged home. If new or worsening symptoms please do not hesitate to return the emergency department. Please take your medications as prescribed and call and schedule an appoint with Dr. Mena tomorrow, tell them when you call that you just got diagnosed with shingles and Dr. Matthew wants you seen soon. Clinical Impressions Clinical Impression: Shingles Instructions Patient Instructions: DI for Skin Abscess Print Language Print Language: Zambian Discharge ED Provider: Jb Matthew General Adult HPI General Chief complaint: Skin/Abscess/Foreign Body Stated complaint: Pain & Rash on right side & under right breast Time Seen by Provider: 02/08/25 11:49 Mode of Arrival: Ambulatory Source of Information: Patient Description of Symptoms (Recalled from ER Triage Doc. by RN): Reports rash on the right side of his abdomen to his under arm. States he thinks he has shingles, denies itching, just says it hurts. History of Present Illness HPI narrative: Patient is a 69-year-old male with no pertinent past medical history who has received vaccinations against shingles who presents emergency department for evaluation of a rash. Onset was acute, over the last 5 days. Patient had pain starting in his back and subsequent development of a rash over the right side of his back that wraps around under his armpit and inframammary fold. No other acute complaints at this time. Please note that above description of symptoms, in this electronic medical record under categorization of recalled from ER triage doctor by RN are reflective of an initial nursing assessment, however, is not reflective of my full history and physical exam that was personally taken and clarified. Consequentially, this preceding description of symptoms, which may include the patient's categorized chief complaint in the EMR, do not reflect my personal clinical impression, and the ultimate description of history of present illness and patient stated complaints should be deferred to this section of the note. Unless stated otherwise or congruent with this section of the note, additional signs, symptoms, or incongruence should be interpreted as inaccurate with my clinical impression. Related Data Home Medications ?Medication ?Instructions ?Recorded ?Confirmed azelastine 137 mcg (0.1 %) nasal 1 spray intranasal BID . 10/16/19 08/06/24 spray clopidogrel 75 mg tablet (Plavix) 75 mg PO DAILY CAD 10/16/19 08/06/24 sacubitril 24 mg-valsartan 26 mg 1 tab PO BID CAD 10/16/19 08/06/24 tablet (Entresto) acetaminophen 325 mg tablet 325 mg PO QID PRN 05/13/24 08/06/24 ascorbic acid (vitamin C) 250 mg 250 mg PO DAILY 05/13/24 08/06/24 tablet aspirin 81 mg tablet,delayed 81 mg PO DAILY 05/13/24 08/06/24 release (Adult Low Dose Aspirin) blood sugar diagnostic (Accu-Chek #10 ea 05/13/24 05/22/24 Guide test strips) carvedilol 6.25 mg tablet 6.25 mg PO Q12H 05/13/24 08/06/24 cholecalciferol (vitamin D3) 50 50 mcg PO DAILY 05/13/24 08/06/24 mcg (2,000 unit) capsule coenzyme Q10 100 mg capsule 100 mg PO DAILY 05/13/24 08/06/24 empagliflozin 25 mg tablet 25 mg PO DAILY 05/13/24 08/06/24 (Jardiance) ferrous sulfate 325 mg (65 mg 325 mg PO DAILY 05/13/24 08/06/24 iron) tablet furosemide 40 mg tablet 20 mg PO DAILY 05/13/24 08/06/24 insulin glargine 100 unit/mL (3 48 unit SQ 05/13/24 08/06/24 mL) subcutaneous pen (Lantus Solostar U-100 Insulin) insulin lispro 100 unit/mL 10 unit SQ .four times day dm 05/13/24 08/06/24 subcutaneous solution (Humalog U-100 Insulin) isosorbide mononitrate 60 mg 60 mg PO DAILY 05/13/24 08/06/24 tablet,extended release 24 hr krill oil 500 mg capsule 300 mg PO DAILY 05/13/24 08/06/24 levothyroxine 112 mcg tablet 112 mcg PO DAILY 05/13/24 08/06/24 metformin 500 mg tablet,extended 1,000 mg PO BID 05/13/24 08/06/24 release 24 hr nitroglycerin 2.5 mg 0.4 mg PO DIRECTED Chest pain 05/13/24 08/06/24 capsule,extended release pantoprazole 40 mg tablet,delayed 40 mg PO DAILY 05/13/24 08/06/24 release rosuvastatin 40 mg tablet 40 mg PO DAILY 05/13/24 08/06/24 Previous Rx's ?Medication ?Instructions ?Recorded albuterol sulfate 90 mcg/actuation 2 puff inhalation Q6H PRN SOB, 10/16/19 aerosol inhaler wheezing 30 days #6.7 grams budesonide-formoterol HFA 160 2 puff inhalation BID 90 days 05/13/24 mcg-4.5 mcg/actuation aerosol #10.2 grams inhaler (Symbicort) acyclovir 800 mg tablet 800 mg PO 5XD shingles #35 tabs 02/08/25 hydrocodone 5 mg-acetaminophen 325 1 tab PO TID PRN pain #15 tabs 02/08/25 mg tablet lidocaine 5 % topical patch 1 patch topical DAILY shingles 02/08/25 pain #15 ea Allergies Allergy/AdvReac Type Severity Reaction Status Date / Time No Known Allergies Allergy Verified 08/06/24 13:41 [facility] Disclaimer: The information contained in this section may have been updated after the patient was seen, as this information can be updated by other users. Medical History Dyspnea on exertion Mild persistent allergic asthma Sinus headache Sinus Sx Diabetes mellitus, type 2 Edema Hyperlipidemia History of chest pain CAD, 7 stents (5 in LAD) in November of 2020 Congestive heart failure Surgical History History of tonsillectomy Additional sx hx - 2 knee replacements, hernia repair Social History Smoking Status: Never smoker alcohol intake: former substance use type: denies use current occupational status: retired Travel in the last 8 weeks?: None household members: spouse housing: house marital status: current occupational exposures/hazards: No do you feel safe at home: Yes victim of physical abuse: No victim of emotional abuse: No victim of sexual abuse: No would you like helpful sources: No Have you lived/traveled outside [place] in past 30 days?: No Contact w/someone who lives/traveled outside [place] past 30 days?: No Exposure to someone with infectious disease in past 14 days?: No Do you have a fever (greater than 100.4 F or 38 C)?: No Have you tested positive for COVID-19?: No Exposed to someone with COVID-19 in past 14 days?: No Do you have a sore throat?: No Do you have a cough?: No Do you have any weakness?: No Do you have any diarrhea?: No Are you experiencing any unusual bleeding?: No Do you have any muscle aches/pain?: No Do you have any abdominal pain?: No Are you experiencing loss of taste or smell?: No Other Medical History Have you received the Flu Vaccine for this season: Yes Have you received the Pneumonia Vaccine: Yes ROS Obtained: Yes Systems reviewed as appropriate & no additional complaints except as documented Physical Exam General General appearance: alert and in no apparent distress Head Head exam: atraumatic and normocephalic Eye Eye exam: Present PERRL and EOMI ENT ENT exam: Present mucous membranes moist Neck Neck exam: Present normal inspection Chest Chest inspection: Present normal inspection and symmetric chest wall rise Respiratory Respiratory exam: Absent respiratory distress Cardiovascular Cardiovascular exam: Present regular rate and normal rhythm Extremities Exam Extremities exam: Present normal inspection Neurological Exam Neurological exam: Present alert and oriented X3 Psychiatric Psychiatric exam: Present normal affect Skin Skin exam: Present warm, dry and other (Crusting vesicular rash along the posterior thoracic cage wrapping around the patient's right side under his inframammary fold. Does not cross midline.) Medical Decision Making Medical Records Screening: Per USPSTF and CDC recommendations, given the prevalence of disease in our region, it is our hospital?s policy to screen for HIV and viral Hepatitis for all patients aged 18 and over and those with ongoing risk factors. Alaln Inquiry Pt receiving controlled substance: Yes Allan was queried for this patient: Yes Risks and benefits of using a controlled substance: were not discussed with pt by me Vital Signs: 02/08/25 11:56 Temperature 98.3 F Temperature Source Oral Pulse Rate [Radial] 73 Respiratory Rate 18 Blood Pressure [Right Arm] 146/72 H Blood Pressure Mean [Right Arm] 96 Blood Pressure Source [Right Arm] Automatic Cuff Blood Pressure Position [Right Arm] Sitting 02 Sat by Pulse Oximetry 96 Oxygen Delivery Method Room Air Orders (Tests/Meds): ED MEDICATIONS Generic Name Dose Route Start Last Admin Trade Name Freq PRN Reason Stop Dose Admin Acetaminophen 1,000 mg 02/08/25 12:08 Acetaminophen 500mg Tab PO 02/08/25 12:09 ONCE ONE Oxycodone HCl 5 mg 02/08/25 12:09 Oxycodone 5mg Immediate Release Tablet PO 02/08/25 12:10 ONCE ONE Medical Decision Narrative: In summary patient is a 69-year-old male with past medical history described above who presents emergency department for evaluation of painful rash. Patient is hemodynamically stable and nontoxic-appearing upon arrival, afebrile. Clinically patient has herpes zoster. Given this pain control will be conducted with Tylenol and oxycodone. Patient will be discharged with acyclovir given that he has new onset rash, lidocaine patch, [place] and will follow-up with pain management clinic as soon as possible. Critical Care Critical Care Time Critical Care Time: No
[2025-02-08] MEDS: OXYCODONE 5MG IMMEDIATE RELEASE TABLET 5 MG PO (12:13)
[2025-02-08] MEDS: ACETAMINOPHEN 500MG TAB 1000 MG PO (12:14)
[2025-02-08 12:22] VITALS: BP 136/79; PULSE 80; RESP 20; TEMP 37; O2SAT 98
== END 2025-02-08 12:23 | disposition home or self-care (01) ==
PROVIDERS: Emergency Provider Emergency Medicine; PCP Family Medicine
DX: B02.9 Zoster without complications (principal); E11.9 Type 2 diabetes mellitus without complications; Z79.4 Long term (current) use of insulin
CPT/HCPCS: 99283